=== PATIENT | female | born 1950 | race Two or more races ===

== ENCOUNTER 2024-10-25 02:58 | Emergency (ER) | payer MEDICAID, OTHER ==
[~2024-10-25] VITALS: Ht 154.9 cm; Wt 72.6 kg
--- NOTE | 2024-10-25 03:24 | ED.PDOC ---
SOB-HPI HPI Comments A 74 year old female brought in by EMS presents to the ED with a chief complaint of shortness of breath onset today. Per EMS, the patient woke up experiencing shortness of breath, daughter suctioned trach that was placed 2 weeks ago and noticed blood. Upon EMS arrival patient's O2 sat was 88% on home oxygen, was placed on a nonbreather over trach and is 95%. Patient has a past medical history of lung and thyroid cancer. No other symptoms or modifying factors present at this time. Chief Complaint: Shortness of Breath Time Seen by MD: 03:00 Reviewed notes: Medications, Allergies Information Source: Patient, Emergency Med Personnel Mode of Arrival: EMS Severity: Moderate Timing: Minutes Duration: Since onset Prehospital treatment: None Associated Signs and Symptoms: None Past Medical History PAST MEDICAL HISTORY: Cancer Surgical History: Unknown NECKTIE TURNER History: No Pertinent NECKTIE TURNER History Family History Family History: Reviewed,noncontributory to illness, No family hx of Cancer, No family hx of DM, No family hx of Heart [place], No family hx of HTN, No family hx ofKidney [place], No family hx of Liver [place], No family hx of Lung [place], No family hx of Stroke Social History Smoker: Non-Smoker Alcohol: Denies ETOH Use Drugs: Denies Drug Use Lives In: Home Constitutional: denies: chills, diaphoresis, fatigue, fever, malaise, sweats, weakness, others EENTM: denies: blurred vision, double vision, ear bleeding, ear discharge, ear drainage, ear pain, ear ringing, eye pain, eye redness, hearing loss, mouth pain, mouth swelling, nasal discharge, nose bleeding, nose congestion, nose pain, photophobia, tearing, throat pain, throat swelling, voice changes, others Respiratory: reports: shortness of breath, wheezing; denies: cough, hemoptysis, orthopnea, SOB at rest, SOB with excertion, stridor, others Cardiovascular: denies: chest pain, dizzy spells, diaphoresis, Dyspnea on exertion, edema, irregular heart beat, left arm pain, lightheadedness, palpitations, PND, syncope, others Gastrointestinal: denies: abdomen distended, abdominal pain, blood streaked bowels, constipated, diarrhea, dysphagia, difficulty swallowing, hematemesis, melena, nausea, poor appetite, poor fluid intake, rectal bleeding, rectal pain, vomiting, others Genitourinary: denies: abnormal vagina bleeding, burning, dyspareunia, dysuria, flank pain, frequency, hematuria, incontinence, pain, , vagina discharge, urgency, others Neurological: denies: dizziness, fainting, headache, left sided numbness, left sided weakness, numbness, paresthesia, pre-existing deficit, right sided numbness, right sided weakness, seizure, speech problems, tingling, tremors, weakness, others Musculoskeletal: denies: back pain, gout, joint pain, joint swelling, muscle pain, muscle stiffness, neck pain, others Integumetry: denies: bruises, change in color, change in hair/nails, dryness, laceration, lesions, lumps, rash, wounds, others Allergic/Immunocompromised: denies: Difficulty Healing, Frequent Infections, Hives, Itching, others Hematologic/Lymphatic: denies: anemia, blood clots, easy bleeding, easy bruising, swollen glands, others Endocrine: denies: excessive hunger, excessive sweating, excessive thirst, excessive urination, flushing, intolerance to cold, intolerance to heat, unexplained weight gain, unexplained weight loss, others Psychiatric: denies: anxiety, bipolar disorder, depression, hopeless, panic disorder, schizophrenia, sleepless, suicidal, others All Other Systems: Reviewed and Negative Physical Exam General Appearance: No Apparent Distress, Normal HEENT: Normal ENT Inspection, Pharynx Normal, TMs Normal Neck: Full Range of Motion, Non-Tender, Normal, Normal Inspection Respiratory: Chest Non-Tender, No Accessory Muscle Use, Rales, Respiratory Distress, Other (diminished breath sounds) Cardiovascular: No Edema, No JVD, No Murmur, No Gallop, Normal Peripheral Pulses, Regular Rate/Rhythm Breast Exam: Deferred Gastrointestinal: No Organomegaly, Non Tender, No Pulsatile Mass, Normal Bowel Sounds, Soft Genitalia: Deferred Pelvic: Deferred Rectal: Deferred Extremities: No calf tenderness, Normal capillary refill, Normal inspection, Normal range of motion, Non-tender, No pedal edema Musculoskeletal : Apperance: Normal Neurologic: Alert, tire wrapper II-XII nml as Tested, No Motor Deficits, Normal Affect, Normal Mood, No Sensory Deficits Cerebellar Function: Normal Reflexes: Normal Skin: Dry, Normal Color, Warm Lymphatic: No Adenopathy EKG EKG : Pulse Rate (adult): 82 Block: IVCD Hypertrophy: LVH Comments 79 bpm ectopic atrial Was a procedure done? Was a procedure done?: No Differential Dx Differential Diagnosis: Anxiety, Asthma, Bronchitis, CHF, COPD, Pneumonia, Respiratory Distress, URI X-Ray, Labs, Meds, VS Vital Signs Date Time Temp Pulse Resp B/P (MAP) Pulse Ox O2 Delivery O2 Flow Rate FiO2 10/25/24 04:00 74 10/25/24 04:00 73 18 123/34 (63) 99 10/25/24 03:50 79 17 137/44 (75) 100 10/25/24 03:27 20 100 Trach Collar 9 40 Cool Aerosol 40 10/25/24 03:24 82 10/25/24 03:12 79 10/25/24 03:09 97.1 80 26 141/61 (87) 95 Lab Test 10/25/24 04:52 10/25/24 04:33 10/25/24 03:45 Range/Units Blood Gas Specimen Type Arterial Blood Gas Sample Site Right radial Blood Gas Patient Temperature 37.0 Arterial Blood Date Drawn [id number] Arterial Blood pH 7.486 H 7.350-7.450 Arterial Blood Partial Pressure CO2 40.6 32.0-45.0 mmHg Arterial Blood Partial Pressure O2 72.8 L 83.0-108.0 mmHg Arterial Blood HCO3 30.0 H 21.0-28.0 mmol/L Arterial Blood Oxygen Saturation 95.8 94.0-98.0 % Arterial Blood Base Excess 6.1 H -2.0-3.0 mmol/L Arterial Blood Oxyhemoglobin 94.8 94.0-98.0 % Arterial Blood Carboxyhemoglobin 0.5 0.5-1.5 % Arterial Blood Methemoglobin 0.5 0.0-1.5 % German Test Modified Blood Gas Total Hemoglobin 9.60 L 12.0-16.0 g/dL Blood Gas Liter Flow 9.00 Blood Gas Modality Cool aerosol FiO2 % 40.0 Troponin I High Sensitivity Pending 13 </=34 ng/L White Blood Count 10.3 4.4-10.8 10^3/uL Red Blood Count 3.51 L 4.0-5.20 10^6/uL Hemoglobin 10.0 L 12.2-16.2 g/dL Hematocrit 30.4 L 36.0-46.0 % Mean Corpuscular Volume 86.5 80.0-100.0 fL Mean Corpuscular Hemoglobin 28.5 28.0-32.0 pg Mean Corpuscular Hemoglobin Concent 33.0 32.0-36.0 g/dL Red Cell Distribution Width 16.8 H 11.8-14.3 % Platelet Count 184 140-450 10^3/uL Mean Platelet Volume 10.0 6.9-10.8 fL Neutrophils (%) (Auto) 59.3 37.0-80.0 % Lymphocytes (%) (Auto) 30.9 10.0-50.0 % Monocytes (%) (Auto) 7.4 0.0-12.0 % Eosinophils (%) (Auto) 0.4 0.0-7.0 % Basophils (%) (Auto) 2.0 0.0-2.0 % Neutrophils # (Auto) 6.1 1.6-8.6 10 ^3/uL Lymphocytes # (Auto) 3.2 0.4-5.4 10 ^3/uL Monocytes # (Auto) 0.8 0-1.3 10 ^3/uL Eosinophils # (Auto) 0 0-0.8 10 ^3/uL Basophils # (Auto) 0.2 0-0.2 10 ^3/uL Nucleated Red Blood Cells 0.1 % Prothrombin Time 11.7 9.3-11.8 sec Prothrombin Time INR 1.11 0.9-1.15 Activated Partial Thromboplast Time 28.9 24.5-34.5 SEC B-Type Natriuretic Peptide 217.92 0-100 pg/mL Current Medications Medications (Trade) Dose Ordered Sig/Kulwant Route Start Time Stop Time Status Last Admin Ondansetron HCl (Zofran) 4 mg ONCE ONCE IV 10/25/24 03:15 10/25/24 03:20 DC 10/25/24 04:30 Albuterol (Ventolin Medneb) 5 mg ONCE ONCE NEB 10/25/24 03:15 10/25/24 03:20 DC 10/25/24 03:26 Ipratropium [place] (Atrovent Medneb) 0.5 mg ONCE ONCE NEB 10/25/24 03:15 10/25/24 03:20 DC 10/25/24 03:26 Levofloxacin/ Dextrose 100 ml @ 100 mls/hr ONCE ONCE IV 10/25/24 03:15 10/25/24 04:14 DC 10/25/24 04:30 Methylprednisolone Sodium Succinate (Solu Medrol) 125 mg ONCE ONCE IV 10/25/24 03:15 10/25/24 03:19 DC 10/25/24 04:[address] [address] Ph: [phone] DIAGNOSTIC IMAGING Diagnostic Imaging Report : [id number] Signed PATIENT: PALMA MCGREGOR ACCT: [id number] UNIT: [id number] : 1950 LOC: ER ROOM / BED: / AGE / SEX: 74 / F ADM STATUS: REG ER SERVICE 2 ORDERING PHYSICIAN: FRANCISCO COPE MD PROCEDURE(s): CXRP - CHEST PORTABLE REASON: sob ORDER NUMBER(s): [id number], ACCESSION NUMBER(s): [id number] CHEST RADIOGRAPH Indication: sob Technique: Single frontal view of the chest was obtained COMPARISON: None FINDINGS: Lines and Tubes: Tracheostomy in satisfactory position. Median sternotomy. Lungs: Congestion Pleura: No effusion. No pneumothorax. Cardiomediastinal contours: Cardiomegaly. Cardiac valve replacement. Bones: Unremarkable IMPRESSION: Pulmonary vascular congestion ATED BY: FABIÁN STRANGE MD DICTATED DATE/TIME: 10/25/24357 SIGNED BY: FABIÁN STRANGE MD SIGNED DATE/TIME: 10/25/24357 CC: [place] [address] Ph: [phone] DIAGNOSTIC IMAGING Diagnostic Imaging Report : [id number] Signed PATIENT: PALMA MCGREGOR ACCT: [id number] UNIT: [id number] : 1950 LOC: ER ROOM / BED: / AGE / SEX: 74 / F ADM STATUS: REG ER SERVICE 2 ORDERING PHYSICIAN: FRANCISCO COPE MD PROCEDURE(s): CTCAP - CHST AB PEL WO CON-NO IV/ORAL REASON: sob ORDER NUMBER(s): [id number], ACCESSION NUMBER(s): [id number] EXAM: CT CHST AB PEL WO CON-NO IV/ORAL History: sob Comparison Study: None available at time of dictation. TECHNIQUE: Multidetector CT of the chest, abdomen and pelvis was performed from lower neck to pubic symphysis without the use of intravenous contrast. Coronal and sagittal multiplanar reformats were performed by the technologist on a separate workstation. Radiation Dose Information: CT Dose: CTDI volume is 16.35 mGy. Dose-length product is 1042.5 mGy*cm FINDINGS: Support lines and tubes: Tracheostomy tube noted. Lower neck: Soft tissue density in the base of the neck surrounding the tracheostomy tube. Lungs: There are pulmonary masses, the largest is a right middle lobe mass measuring 4.5 cm. There is also right upper lobe pleural-based mass in the posterior superior segment measuring 2.7 cm. Left lower lobe mass noted measuring 3.1 cm. There multiple smaller masses and pulmonary nodules. Central airways: Patent. No pleural effusion or pneumothorax. Heart/Vascular Structures: Heart is enlarged. Coronary artery calcifications. No pericardial effusion. Lymph Nodes: No adenopathy. Liver: The liver is normal in size. Non-contrast appearance of liver. Gallbladder and Biliary Tree: Unremarkable. Spleen: Unremarkable. Pancreas: Unremarkable. Adrenal Glands: Calcification in the right adrenal. Left adrenal is un remarkable.. Kidneys: Punctate nonobstructing left nephrolithiasis. Bladder: Unremarkable. Stomach and bowel: There is a percutaneous gastrostomy tube noted. No bowel wall thickening or dilatation. The appendix is not visualized; however, no secondary findings of acute appendicitis identified. Peritoneum: No ascites or pneumoperitoneum. Lymphadenopathy: No enlarged lymph nodes. Vasculature: The visualized abdominal aorta is normal in size and caliber. Evaluation of the vascular structures is limited due to lack of intravenous contrast. Pelvic Organs: Unremarkable. Musculoskeletal: No acute osseous abnormality. Status post median sternotomy Soft tissues: Unremarkable. IMPRESSION: 1. Multiple pulmonary masses measuring up to 4.5 cm concerning for metastatic disease. 2. Soft tissue density surrounding the tracheostomy tube in the base of the neck. Please correlate clinically. 3. Punctate left nephrolithiasis. 4. No acute abnormality in the abdomen or pelvis. All CT scans at this medical facility are performed using dose modulation techniques as appropriate to a performed exam including the following: Automated exposure control was utilized; adjustment of the MA and/or KV according to patient size; and use of iterative reconstruction technique. ATED BY: JOELLEN PHELPS MD DICTATED DATE/TIME: 10/25/24411 SIGNED BY: JOELLEN PHELPS MD SIGNED DATE/TIME: 10/25/24411 CC: PO2 is 72 on 40% FiO2. Troponin is 13 EKG shows no signs of ischemia. Hemoglobin is 10. BNP is 217. The patient is 89 respiratory distress. She was suctioned by respiratory therapy. She has a physician down [place] in [place] who we will refer her to. Time of 1ST Reevaluation: 03:30 Reevaluation 1ST: Unchanged Patient Education/Counseling: Diagnosis, Treatment, Prognosis Family Education/Counseling: No Family Present Departure 1 Departure Time of Disposition: 05:03 Impression: Primary Impression: Lung cancer Qualified Codes: C34.90 - Malignant neoplasm of unspecified part of unspecified bronchus or lung Additional Impression: Hemoptysis Disposition: HOME / SELF CARE / HOMELESS Condition: Stable Additional Instructions: Reassessed patient, vital signs stable. Denies any new symptoms. Patient is able to tolerate PO and ambulate/be mobile at their baseline without concern. Risks and benefits of all medications given or prescribed, if any, discussed. All lab work, imaging and diagnostic studies were reviewed by me. The patient was counseled extensively on my clinical impression, diagnosis, expected course of the disease, and plan, including their follow-up care. Will discharge patient. Patient instructed to follow up with Primary Care Physician within 24-48 hours. Strict return precautions given for further exacerbation of symptoms or for new symptoms. The patient was given the opportunity to ask questions and all questions were answered by myself and the nursing/tech staff. Patient is in agreement with the care plan. The patient verbally expressed understanding of the discharge instructions, including the reasons to return to the Emergency Department. Discharged With: Relative Comments Critical Care Procedure Note Authorized and Performed by: Manolo Rizo MD Total critical care time: Approximately 36 minutes Due to a high probability of clinically significant, life threatening deterioration, the patient required my highest level of preparedness to interve ne emergently and I personally spent this critical care time directly and personally managing the patient. This critical care time included obtaining a history; examining the patient; pulse oximetry; ordering and review of studies; arranging urgent treatment with development of a management plan; evaluation of patient's response to treatment; frequent reassessment; and, discussions with other providers. This critical care time was performed to assess and manage the high probability of imminent, life-threatening deterioration that could result in multi-organ failure. It was exclusive of separately billable procedures and treating other patients and teaching time. Please see MDM section and the rest of the note for further information on patient assessment and treatment. Critical Care Note Critical Care Time?: Yes (35 min-critical care time only) Stability Stability form required: No Heart Score Heart Score: Heart Score Response (Comments) Value History N/A 0 EKG Normal 0 Age >65 2 Risk Factors 1 or 2 risk factors 1 Troponin Normal limit 0 Total 3 I personally scribed for FRANCISCO COPE MD ([email or web address]) on 10/25/24 at 03:23. Electronically submitted by Aimee Batres ([email or web address]). I personally scribed for FRANCISCO COPE MD ([email or web address]) on 10/25/24 at 04:28. Electronically submitted by Aimee Batres ([email or web address]). FRANCISCO COPE MD Oct 25, 2024 03:23
[2024-10-25] MEDS: IPRATROPIUM BROM 0.5 MG/2.5ML INH SOL NEB ONE (03:26)
[2024-10-25] MEDS: ALBUTEROL SULF 2.5 MG/0.5ML(0.5%) NEB SOLN NEB ONE (03:26)
--- NOTE | 2024-10-25 04:02 | DVH ---
CHEST RADIOGRAPH Indication: sob Technique: Single frontal view of the chest was obtained COMPARISON: None FINDINGS: Lines and Tubes: Tracheostomy in satisfactory position. Median sternotomy. Lungs: Congestion Pleura: No effusion. No pneumothorax. Cardiomediastinal contours: Cardiomegaly. Cardiac valve replacement. Bones: Unremarkable IMPRESSION: Pulmonary vascular congestion
[2024-10-25 04:05] LABS: Basophils # (auto) 0.2 10 ^3/uL (0-0.2); Eosinophils # (auto) 0 10 ^3/uL (0-0.8); Eosinophils % (auto) 0.4 % (0.0-7.0); Hematocrit 30.4 % (36.0-46.0); Lymphocytes # (auto) 3.2 10 ^3/uL (0.4-5.4); Lymphocytes % (auto) 30.9 % (10.0-50.0); Mean Corpuscular Hemoglobin 28.5 pg (28.0-32.0); Mean Corpuscular Volume 86.5 fL (80.0-100.0); Monocytes # (auto) 0.8 10 ^3/uL (0-1.3); Monocytes % (auto) 7.4 % (0.0-12.0); Neutrophils # (auto) 6.1 10 ^3/uL (1.6-8.6); Neutrophils % (auto) 59.3 % (37.0-80.0); Nucleated Red Blood Cells % 0.1 %; Platelet Count (auto) 184 10^3/uL (140-450); Red Blood Cells 3.51 10^6/uL (4.0-5.20); Red Cell Distribution Width 16.8 % (11.8-14.3); White Blood Cell 10.3 10^3/uL (4.4-10.8)
--- NOTE | 2024-10-25 04:14 | DVH ---
EXAM: CT CHST AB PEL WO CON-NO IV/ORAL History: sob Comparison Study: None available at time of dictation. TECHNIQUE: Multidetector CT of the chest, abdomen and pelvis was performed from lower neck to pubic s ymphysis without the use of intravenous contrast. Coronal and sagittal multiplanar reformats were per formed by the technologist on a separate workstation. Radiation Dose Information: CT Dose: CTDI volume is 16.35 mGy. Dose-length product is 1042.5 mGy*cm FINDINGS: Support lines and tubes: Tracheostomy tube noted. Lower neck: Soft tissue density in the base of the neck surrounding the tracheostomy tube. Lungs: There are pulmonary masses, the largest is a right middle lobe mass measuring 4.5 cm. There is also right upper lobe pleural-based mass in the posterior superior segment measuring 2.7 cm. Left lo wer lobe mass noted measuring 3.1 cm. There multiple smaller masses and pulmonary nodules. Central airways: Patent. No pleural effusion or pneumothorax. Heart/Vascular Structures: Heart is enlarged. Coronary artery calcifications. No pericardial effusio n. Lymph Nodes: No adenopathy. Liver: The liver is normal in size. Non-contrast appearance of liver. Gallbladder and Biliary Tree: Unremarkable. Spleen: Unremarkable. Pancreas: Unremarkable. Adrenal Glands: Calcification in the right adrenal. Left adrenal is unremarkable.. Kidneys: Punctate nonobstructing left nephrolithiasis. Bladder: Unremarkable. Stomach and bowel: There is a percutaneous gastrostomy tube noted. No bowel wall thickening or dilata tion. The appendix is not visualized; however, no secondary findings of acute appendicitis identified . Peritoneum: No ascites or pneumoperitoneum. Lymphadenopathy: No enlarged lymph nodes. Vasculature: The visualized abdominal aorta is normal in size and caliber. Evaluation of the vascular structures is limited due to lack of intravenous contrast. Pelvic Organs: Unremarkable. Musculoskeletal: No acute osseous abnormality. Status post median sternotomy Soft tissues: Unremarkable. IMPRESSION: 1. Multiple pulmonary masses measuring up to 4.5 cm concerning for metastatic disease. 2. Soft tissue density surrounding the tracheostomy tube in the base of the neck. Please correlate c linically. 3. Punctate left nephrolithiasis. 4. No acute abnormality in the abdomen or pelvis. All CT scans at this medical facility are performed using dose modulation techniques as appropriate t o a performed exam including the following: Automated exposure control was utilized; adjustment of th e MA and/or KV according to patient size; and use of iterative reconstruction technique.
[2024-10-25 04:19] LABS: INR 1.11 (0.9-1.15); Partial Thromboplastin Time 28.9 SEC (24.5-34.5); Prothrombin Time 11.7 sec (9.3-11.8)
[2024-10-25] MEDS: ONDANSETRON HCL 4 MG/2 ML VIAL IV ONE (04:30)
[2024-10-25] MEDS: levoFLOXacin 500MG 100 ML IV ONE (04:30)
[2024-10-25] MEDS: methylPREDNISolone SOD SUCC 125 MG/2 ML VL IV ONE (04:30)
[2024-10-25 05:01] LABS: Base Excess 6.1 mmol/L (-2.0-3.0)
[2024-10-25 05:51] VITALS: BP 125/40; PULSE 69; RESP 16; O2SAT 98
--- NOTE | 2024-10-25 07:16 | ECG ---
[facility] Test Date: 2024-10-25 Test Time: 03:12:02 Pat Name: PALMA MCGREGOR Department: ED Room: Gender: F [place] Measurer: : 1950 Requested By: FRANCISCO COPE Order Number: [id number] Reading MD: Jonathan Davenport Measurements Intervals [place] Rate: 79 P: 234 MD: 82 QRS: -50 QRSD: 113 T: 123 QT: 415 QTc: 476 Interpretive Statements Ectopic atrial rhythm Short MD interval LVH with IVCD, LAD and secondary repol abnrm Electronically Signed On 10-25-2024 14:18:20 PST by Jonathan Davenport Please click the below link to view image of tracing.
--- NOTE | 2024-10-26 02:59 | ECG ---
[facility] Test Date: 2024-10-25 Test Time: 20:38:04 Pat Name: PALMA MCGREGOR Department: ed Room: Gender: F Certified Flight Instructor: floyd : 1950 Requested By: FRANCISCO COPE Order Number: [id number] Reading MD: Jonathan Davenport Measurements Intervals [place] Rate: 29 P: 0 OR: 0 QRS: 111 QRSD: 186 T: -88 QT: 695 QTc: 483 Interpretive Statements Atrial fibrillation, severe bradycardia abnormal baseline, can not determine atrial rhythm and or heart block Right bundle branch block Repol abnrm, global ischemia, diffuse leads Baseline wander in lead(s) II,III,aVF Electronically Signed On 10-30-2024 8:53:10 PST by Jonathan Davenport Please click the below link to view image of tracing.
== END 2024-10-25 06:16 | disposition home or self-care (01) ==
LOC: ER 02:58 → EDBD 03:04 → ER 06:16
DX: C34.90 Malignant neoplasm of unspecified part of unspecified bronchus or lung (principal); R04.2 Hemoptysis; R06.03 Acute respiratory distress; R22.2 Localized swelling, mass and lump, trunk; R09.89 Other specified symptoms and signs involving the circulatory and respiratory systems; Z85.850 Personal history of malignant neoplasm of thyroid
CPT/HCPCS: 36415; 36600; 71045; 71250; 74176; 82805; 83880; 84484; 85025; 85610; 85730; 93005; 94640; 96365; 96375; 99291; J1956; J2405; J2919

== ENCOUNTER 2024-10-25 20:37 | Inpatient (IN) | payer MEDICAID ==
[~2024-10-25] VITALS: Ht 160 cm; Wt 68.0 kg
[2024-10-25 20:35] VITALS: BP 147/69; PULSE 64; RESP 18; O2SAT 100
[2024-10-25] MEDS: DOPamine 1600MCG/ML D5W 250 ML IV SCH (20:44)
[2024-10-25] MEDS: ROCURONIUM 10MG/ML 10ML VIAL IV ONE ×2 (20:53→20:58)
--- NOTE | 2024-10-25 20:56 | ED.PDOC ---
History of Present Illness HPI Comments 74 y/o F, with a Hx lung and thyroid CA and tracheostomy, is BIBA for c/o shortness of breath, today. Per EMS report, patient's family called after patient began having difficulty breathing at around 2000, this evening, and failing to clean-out the patient's tracheostomy tube that she had placed for throat CA 2x weeks ago. Patient was stated to have been seen at [facility] hospital for same c/o shortness of breath, this morning, prior being medically cleared and discharged. On scene, EMS informs on being unable to obtain an initial SpO2 saturation reading in addition to 12 lead EKG but noted on patient's pulse rate being with in the low 20's-30's range. En route, patient had bag-valve mask placed at 15LPM. Upon arrival to ED, care was resumed by ED staff. Further Hx cannot be obtained, due to patient's current condition and absence of family/plant culture manager historians, at time of arrival and initial assessment. See EMS run sheet for further information. Time Seen by MD: 20:25 Reviewed Notes: Nurses Notes, Records Management Assistant Notes, Medications, Allergies Allergies: Coded Allergies: NO KNOWN ALLERGIES (Unverified , 10/25/24) Information Source: Emergency Med Personnel Mode of Arrival: EMS Severity: Moderate Timing: Minutes Duration: Since onset Prehospital treatment: Rescue Worker, Oxygen (BVM at 15lpm) Past Medical History PAST MEDICAL HISTORY: Cancer (throat and thyroid CA ) Surgical History (Other): tracheostomy SUSTAINABLE DESIGN COORDINATOR History: No Pertinent SUSTAINABLE DESIGN COORDINATOR History Family History Family History: Reviewed,noncontributory to illness, No family hx of Cancer, No family hx of DM, No family hx of Heart sh[place], No family hx of HTN, No family hx ofKidney shiloh, No family hx of Liver shil[place], No family hx of Lung [place], No family hx of Stroke Social History Smoker: Non-Smoker Alcohol: Denies ETOH Use Drugs: Denies Drug Use Lives In: Home, Assisted Care Constitutional: denies: chills, diaphoresis, fatigue, fever, malaise, sweats, weakness, others EENTM: denies: blurred vision, double vision, ear bleeding, ear discharge, ear drainage, ear pain, ear ringing, eye pain, eye redness, hearing loss, mouth pain, mouth swelling, nasal discharge, nose bleeding, nose congestion, nose pain, photophobia, tearing, throat pain, throat swelling, voice changes, others Respiratory: reports: shortness of breath; denies: cough, hemoptysis, orthopnea, SOB at rest, SOB with excertion, stridor, wheezing, others Cardiovascular: denies: chest pain, dizzy spells, diaphoresis, Dyspnea on exertion, edema, irregular heart beat, left arm pain, lightheadedness, palpitations, PND, syncope, others Gastrointestinal: denies: abdomen distended, abdominal pain, blood streaked bowels, constipated, diarrhea, dysphagia, difficulty swallowing, hematemesis, melena, nausea, poor appetite, poor fluid intake, rectal bleeding, rectal pain, vomiting, others Genitourinary: denies: abnormal vagina bleeding, burning, dyspareunia, dysuria, flank pain, frequency, hematuria, incontinence, pain, , vagina discharge, urgency, others Neurological: denies: dizziness, fainting, headache, left sided numbness, left sided weakness, numbness, paresthesia, pre-existing deficit, right sided numbness, right sided weakness, seizure, speech problems, tingling, tremors, weakness, others Musculoskeletal: denies: back pain, gout, joint pain, joint swelling, muscle pain, muscle stiffness, neck pain, others Integumetry: denies: bruises, change in color, change in hair/nails, dryness, laceration, lesions, lumps, rash, wounds, others Allergic/Immunocompromised: denies: Difficulty Healing, Frequent Infections, Hives, Itching, others Hematologic/Lymphatic: denies: anemia, blood clots, easy bleeding, easy bruising, swollen glands, others Endocrine: denies: excessive hunger, excessive sweating, excessive thirst, excessive urination, flushing, intolerance to cold, intolerance to heat, unexplained weight gain, unexplained weight loss, others Psychiatric: denies: anxiety, bipolar disorder, depression, hopeless, panic disorder, schizophrenia, sleepless, suicidal, others All Other Systems: Reviewed and Negative Physical Exam General Appearance: No Apparent Distress, Normal HEENT: Normal ENT Inspection, Pharynx Normal, TMs Normal Neck: Full Range of Motion, Non-Tender, Normal, Normal Inspection Respiratory: Chest Non-Tender, Other (tracheostomy tube in place) Cardiovascular: No Edema, No JVD, No Murmur, No Gallop, Normal Peripheral Pulses, Regular Rate/Rhythm Breast Exam: Deferred Gastrointestinal: No Organomegaly, Non Tender, No Pulsatile Mass, Normal Bowel Sounds, Soft Genitalia: Deferred Pelvic: Deferred Rectal: Deferred Extremities: No calf tenderness, Normal capillary refill, Normal inspection, Normal range of motion, Non-tender, No pedal edema Musculoskeletal : Apperance: Normal Neurologic: Alert, agricultural produce packer II-XII nml as Tested, No Motor Deficits, Normal Affect, Normal Mood, No Sensory Deficits Cerebellar Function: Normal Reflexes: Normal Skin: Dry, Normal Color, Warm Lymphatic: No Adenopathy Was a procedure done? 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: Attending Physician Indication: Inability to obtain IV Room prepared for procedure: Yes Clinical Rehabilitation Liaison performed hand hygien: Yes Maximal sterile barrier precau: Mask/Eye shield, Sterile gown, Cap, Sterlie gloves, Large sterlie drape Skin Preparation: Chlorhexidine gluconate Skin preparation completely dr: Yes Insertion site: Right, Left, Femoral Central line catheter type: [id number] dialysis Number of lumens: 3 Central line exchanged over a: No Antiseptic ointment applied to: No Post Assessment: Chest X-Ray, Proper placement Informed consent obtained: No Risks/benefits/alt described: No Notes failed right femoral central line placement attempt, left femoral central line placement was successful. EKG EKG #1: Pulse Rate (adult): 29 [place]: Normal Cardiac Rhythm: Afib Block: RBBB Hypertrophy: None ST: Normal EKG #2: Pulse Rate (adult): 103 [place]: Normal Cardiac Rhythm: ST Block: RBBB Hypertrophy: None ST: Normal Comments LVFB Differential Dx Considerations may include: acute respiratory distress, respiratory failure, arrhythmia, PE, [place], URI, hypoxia, congestion, URI X-Ray, Labs, Meds, VS Vital Signs Date Time Temp Pulse Resp B/P (MAP) Pulse Ox O2 Delivery O2 Flow Rate FiO2 10/26/24 05:13 79 14 68/41 10/26/24 05:10 78 14 70 Room Air* 0 21 10/26/24 05:10 78 14 68/41 (50) 70 10/26/24 04:53 79 10 68/38 10/26/24 04:07 80 10 75/38 10/26/24 03:30 81 10 69/41 (50) 81 10/26/24 03:15 81 10 75/42 (53) 80 10/26/24 03:08 80 10 73/43 10/26/24 03:00 81 10 78/44 (55) 83 10/26/24 02:45 81 10 75/43 (54) 75 10/26/24 02:38 92 14 102/59 10/26/24 02:30 90 14 102/59 (73) 82 10/26/24 02:15 99.9 88 17 90/51 (64) 89 99.9 10/26/24 02:00 99.9 79 17 82/52 (62) 100 99.9 10/26/24 01:45 99.9 75 17 90/45 (60) 100 99.9 10/26/24 01:30 99.9 74 17 91/49 (63) 100 99.9 10/26/24 01:15 99.9 75 17 90/45 (60) 100 99.9 10/26/24 01:00 99.0 75 18 95/49 (64) 100 99.0 10/26/24 00:45 100.0 81 18 92/47 (62) 100 100.0 10/26/24 00:30 100.2 86 12 96/51 (66) 100 100.2 10/26/24 00:17 99 18 95/63 98 60 10/26/24 00:15 100.0 87 23 94/41 (58) 100 100.0 10/26/24 00:00 100.0 96 24 80/55 (63) 100 100.0 10/26/24 00:00 112 10/25/24 23:55 80/55 10/25/24 23:53 99 27 95/63 (74) 100 60 10/25/24 23:45 99.9 104 17 106/51 (69) 100 99.9 10/25/24 23:30 99.7 107 21 106/51 (69) 100 99.7 10/25/24 23:15 99.7 117 17 96/57 (70) 100 99.7 10/25/24 23:00 99.7 129 18 128/67 (87) 100 99.7 10/25/24 22:55 125/65 10/25/24 22:55 125/65 10/25/24 22:45 99.7 82 18 123/57 (79) 100 99.7 10/25/24 22:40 145/53 10/25/24 22:40 145/53 10/25/24 22:38 145/53 10/25/24 22:38 145/53 10/25/24 22:30 99.7 109 18 130/67 (88) 100 99.7 10/25/24 22:24 99 18 126/66 (86) 100 60 10/25/24 22:15 99.7 84 18 131/59 (83) 100 99.7 10/25/24 22:00 99.9 56 18 136/62 (86) 100 99.9 10/25/24 21:45 99.9 71 18 130/52 (78) 100 99.9 10/25/24 21:30 55 20 116/53 (74) 10/25/24 21:16 128/45 10/25/24 21:15 61 23 128/48 (74) 10/25/24 21:01 97.3 20 18 140/110 (120) 100 10/25/24 21:00 38 13 142/61 (88) 10/25/24 21:00 91 Trach Collar 15 N/A 10/25/24 20:58 156/84 10/25/24 20:48 156/84 10/25/24 20:46 156/84 10/25/24 20:45 95 19 156/94 (114) 10/25/24 20:44 103 10/25/24 20:44 156/84 10/25/24 20:38 29 10/25/24 20:38 21 10/25/24 20:35 64 18 147/69 (95) 100 100 Lab Test 10/26/24 00:15 10/25/24 22:53 10/25/24 22:17 10/25/24 21:53 Range/Units Troponin I High Sensitivity 1385 *H 224 *H </=34 ng/L Lactic Acid Level 8.3 *H 0.4-2.0 mmol/L Blood Gas Specimen Type Arterial Blood Gas Sample Site Right radial Blood Gas Patient Temperature 37.0 Arterial Blood Date Drawn [id number] Arterial Blood pH 7.231 *L 7.350-7.450 Arterial Blood Partial Pressure CO2 34.6 32.0-45.0 mmHg Arterial Blood Partial Pressure O2 276.3 H 83.0-108.0 mmHg Arterial Blood HCO3 14.2 L 21.0-28.0 mmol/L Arterial Blood Oxygen Saturation 99.7 H 94.0-98.0 % Arterial Blood Base Excess -12.3 L -2.0-3.0 mmol/L Arterial Blood Oxyhemoglobin 99.2 H 94.0-98.0 % Arterial Blood Carboxyhemoglobin 0.1 L 0.5-1.5 % Arterial Blood Methemoglobin 0.4 0.0-1.5 % German Test Modified Blood Gas Total Hemoglobin 10.00 L 12.0-16.0 g/dL Blood Gas Set Respiration Rate 18.0 Blood Gas Modality Vent - ac FiO2 % 100.0 Blood Gas Tidal Volume 450.0 Blood Gas PEEP or CPAP 5.0 Blood Gas Critical Value Read Back Yes Blood Gas Notified Whom Dr. cope Blood Gas Notified Time [id number] Blood Gas Notified By Facility Maintenance Supervisor daren zulema Test 10/25/24 21:40 10/25/24 20:55 Range/Units Urine Color Yellow Yellow Urine Clarity Clear Clear Urine pH 7.0 5.0-9.0 Urine Specific [place] 1.019 1.001-1.035 Urine Protein 2+ H Negative Urine Ketones Negative Negative Urine Blood Negative Negative /uL Urine Nitrite Negative Negative Urine Bilirubin Negative Negative Urine Urobilinogen 2 H Negative mg/dL Urine Leukocyte Esterase Negative Negative /uL Urine RBC <1 0 - 4 /hpf Urine WBC 1 0 - 5 /hpf Urine Squamous Epithelial Cells Few <5 /hpf Urine Bacteria None seen None Seen /hpf Urine Yeast (Budding) Occasional None Seen /hpf Urine Glucose Normal Normal mg/dL White Blood Count 17.7 #H 4.4-10.8 10^3/uL Red Blood Count 3.32 L 4.0-5.20 10^6/uL Hemoglobin 9.1 L 12.2-16.2 g/dL Hematocrit 30.7 L 36.0-46.0 % Mean Corpuscular Volume 92.5 # 80.0-100.0 fL Mean Corpuscular Hemoglobin 27.5 L 28.0-32.0 pg Mean Corpuscular Hemoglobin Concent 29.7 L 32.0-36.0 g/dL Red Cell Distribution Width 17.8 H 11.8-14.3 % Platelet Count 228 140-450 10^3/uL Mean Platelet Volume 10.3 6.9-10.8 fL Neutrophils (%) (Auto) 45.5 37.0-80.0 % Lymphocytes (%) (Auto) 51.2 H 10.0-50.0 % Monocytes (%) (Auto) 3.1 0.0-12.0 % Eosinophils (%) (Auto) 0.1 0.0-7.0 % Basophils (%) (Auto) 0.1 0.0-2.0 % Neutrophils # (Auto) 8.1 1.6-8.6 10 ^3/uL Lymphocytes # (Auto) 9.1 H 0.4-5.4 10 ^3/uL Monocytes # (Auto) 0.5 0-1.3 10 ^3/uL Eosinophils # (Auto) 0 0-0.8 10 ^3/uL Basophils # (Auto) 0 0-0.2 10 ^3/uL Nucleated Red Blood Cells 0.1 % Prothrombin Time 11.7 9.3-11.8 sec Prothrombin Time INR 1.11 0.9-1.15 Activated Partial Thromboplast Time 22.8 L 24.5-34.5 SEC Sodium Level 138 136-145 mmol/L Potassium Level 4.7 3.5-5.1 mmol/L Chloride Level 103 98-107 mmol/L Carbon Dioxide Level 14 L 20-31 mmol/L Anion Gap 21 H 5-15 Blood Urea Nitrogen 22 9-23 mg/dL Creatinine 1.05 H 0.550-1.02 mg/dL Glomerular Filtration Rate Calc 56 >90 mL/min BUN/Creatinine Ratio 21.0 H 10.0-20.0 Serum Glucose 396 H 74-106 mg/dL Lactic Acid Level 13.1 *H 0.4-2.0 mmol/L Calcium Level 9.8 8.7-10.4 mg/dL Magnesium Level 2.6 1.6-2.6 mg/dL Total Bilirubin 0.3 0.2-1.0 mg/dL Aspartate Amino Transferase (AST) 31 13-40 U/L Alanine Aminotransferase (ALT) 30 7-40 U/L Alkaline Phosphatase 170 H 46-116 U/L Ammonia 33 H 11-32 umol/L Troponin I High Sensitivity 50 *H </=34 ng/L B-Type Natriuretic Peptide 1284.16 0-100 pg/mL Total Protein 6.8 5.7-8.2 g/dL Albumin 4.1 3.2-4.8 g/dL Current Medications Medications (Trade) Dose Ordered Sig/Kulwant Route Start Time Stop Time Status Last Admin Rocuronium [place] 50 mg ONCE ONCE IV 10/25/24 21:00 10/25/24 21:01 DC 10/25/24 20:58 Sodium Bicarbonate 150 ml ONCE ONCE IV 10/25/24 22:30 10/25/24 22:32 DC 10/25/24 22:46 Dopamine HCl/ Dextrose 250 ml @ 12.75 mls/ hr [id number] IV 10/25/24 20:44 10/25/24 20:44 Epinephrine HCl 250 ml @ 7.5 mls/hr Q24H IV 10/25/24 21:16 10/25/24 21:16 Glucagon (Glucagen) 1 mg ONCE ONCE IV 10/25/24 21:36 10/25/24 22:36 DC 10/25/24 21:36 Lorazepam (Ativan Inj) 2 mg ONCE ONCE IV 10/26/24 00:00 10/26/24 00:01 DC 10/26/24 00:34 Sodium Chloride 1,000 ml @ 1,000 mls/hr Q1H ONCE IV 10/26/24 00:45 10/26/24 01:44 DC 10/26/24 00:45 Morphine Sulfate 1 mg Q1HP PRN IV 10/26/24 02:15 10/26/24 05:13 Lorazepam (Ativan Inj) 1 mg Q1HP PRN IV 10/26/24 02:15 10/26/24 02:38 she was placed on ventilation after central line placement in addition to dopamine and epinephrine IV drip; respiratory suctioned out thick green mucous from the patient's tracheostomy [place]. [place] [address]. BNP is 1284. Troponin is 50. EKG reveals severe bradycardia. I spoke with Dr. arenas, the stationary equipment mechanic who felt that the patient is doing the best she can with transcutaneous pacemaker which is currently said at 96 milliamps at a rate of 70 beats per minute. We will continue dopamine and epinephrine drips. He states that the patient probably needs a permanent pacemaker but with metastatic lung cancer and thyroid cancer those are contraindication for permanent pacemaker. I will speak with the family about comfort measures are DNR( advanced directive) The family finally decided on her advanced directive. They decided to make her a DNR. All drips and resuscitative measures were discontinued. The patient was allowed to with dignity. Family members are at bedside. The patient was signed out to Dr. Sylvester Time of 1ST Reevaluation: 20:55 Reevaluation 1ST: Unchanged Patient Education/Counseling: Other Family Education/Counseling: No Family Present Departure 1 Departure Time of Disposition: 05:59 Impression: Primary Impression: Respiratory failure Qualified Codes: J96.00 - Acute respiratory failure, unspecified whether with hypoxia or hypercapnia Additional Impressions: CHF (congestive heart failure) Qualified Codes: I50.9 - Heart failure, unspecified Bradycardia Tracheostomy dependence Sepsis Qualified Codes: A41.9 - Sepsis, unspecified organism Disposition: 30 STILL A PATIENT Condition: Critical Comments DNR was signed by the family members who were sitting by the bedside and waiting for the patient to . Critical Care Note Critical Care Time?: Yes (1 hr-critical care time only) Stability Stability form required: No Heart Score Heart Score: Heart Score Response (Comments) Value History Moderate Suspicious 1 EKG Repolarization Disturb 1 Age >65 2 Risk Factors >3 or Hx ASHD 2 Troponin 1-2 x's Normal limit 1 Total 7 I personally scribed for FRANCISCO COPE MD ([email or web address]) on 10/25/24 at 20:56. Electronically submitted by Rupert Gunn ([email or web address]). I personally scribed for FRANCISCO COPE MD ([email or web address]) on 10/25/24 at 21:18. Electronically submitted by Rupert Gunn ([email or web address]). I personally scribed for FRANCISCO COPE MD ([email or web address]) on 10/25/24 at 21:28. Electronically submitted by Rupert Gunn ([email or web address]). FRANCISCO COPE MD Oct 25, 2024 20:56
[2024-10-25 21:00] VITALS: O2SAT 91
[2024-10-25] MEDS: EPINEPHrine HCL 250 ML IV ONE (21:10)
[2024-10-25] MEDS: EPINEPHrine HCL 250 ML IV SCH (21:16)
[2024-10-25 21:28] LABS: Basophils # (auto) 0 10 ^3/uL (0-0.2); Basophils % (auto) 0.1 % (0.0-2.0); Eosinophils # (auto) 0 10 ^3/uL (0-0.8); Nucleated Red Blood Cells % 0.1 %
[2024-10-25 21:30] LABS: Eosinophils % (auto) 0.1 % (0.0-7.0); Hematocrit 30.7 % (36.0-46.0); Hemoglobin 9.1 g/dL (12.2-16.2); Lymphocytes # (auto) 9.1 10 ^3/uL (0.4-5.4); Lymphocytes % (auto) 51.2 % (10.0-50.0); Mean Corpuscular Hemoglobin 27.5 pg (28.0-32.0); Mean Corpuscular Hgb Conc. 29.7 g/dL (32.0-36.0); Mean Corpuscular Volume 92.5 fL (80.0-100.0); Monocytes # (auto) 0.5 10 ^3/uL (0-1.3); Monocytes % (auto) 3.1 % (0.0-12.0); Neutrophils # (auto) 8.1 10 ^3/uL (1.6-8.6); Neutrophils % (auto) 45.5 % (37.0-80.0); Platelet Count (auto) 228 10^3/uL (140-450); Red Blood Cells 3.32 10^6/uL (4.0-5.20); Red Cell Distribution Width 17.8 % (11.8-14.3); White Blood Cell 17.7 10^3/uL (4.4-10.8)
[2024-10-25] MEDS: GLUCAGON EMERG KIT 1mg/1ml IV ONE (21:36)
[2024-10-25 21:43] LABS: INR 1.11 (0.9-1.15); Partial Thromboplastin Time 22.8 SEC (24.5-34.5); Prothrombin Time 11.7 sec (9.3-11.8)
[2024-10-25 21:44] LABS: Alanine Aminotransferase 30 U/L (7-40); Albumin 4.1 g/dL (3.2-4.8); Anion Gap 21 (5-15); Aspartate Aminotransferase 31 U/L (13-40); Blood Urea Nitrogen 22 mg/dL (9-23); Calcium 9.8 mg/dL (8.7-10.4); Chloride 103 mmol/L (98-107); Magnesium 2.6 mg/dL (1.6-2.6); Potassium 4.7 mmol/L (3.5-5.1); Sodium 138 mmol/L (136-145)
[2024-10-25 21:45] LABS: Bilirubin, Total 0.3 mg/dL (0.2-1.0); Total Protein 6.8 g/dL (5.7-8.2)
[2024-10-25] MEDS: GLUCAGON EMERG KIT 1mg/1ml ONE (21:45)
[2024-10-25 21:47] LABS: Alkaline Phosphatase 170 U/L (46-116); Carbon Dioxide 14 mmol/L (20-31); Glucose 396 mg/dL (74-106)
[2024-10-25 21:50] LABS: Lactic Acid w/Reflex 13.1 mmol/L (0.4-2.0)
[2024-10-25 22:20] LABS: Urine Bacteria None Seen /hpf (None Seen)
[2024-10-25 22:22] LABS: Base Excess -12.3 mmol/L (-2.0-3.0)
[2024-10-25 22:24] VITALS: BP 126/66; PULSE 99; RESP 18; O2SAT 100
[2024-10-25 22:39] LABS: Urine Blood Negative /uL (Negative); Urine Budding Yeast OCCASIONAL /hpf (None Seen); Urine Clarity Clear (Clear); Urine Color Yellow (Yellow); Urine Protein, UAD 2+ (Negative); Urine Specific Gravity 1.019 (1.001-1.035); Urine Urobilinogen 2 mg/dL (Negative); Urine WBC 1 /hpf (0 - 5)
[2024-10-25] MEDS: SODIUM BICARB 8.4% 50Meq/50ml SYR Vial IV ONE (22:46)
[2024-10-25 23:53] VITALS: BP 95/63; PULSE 99; RESP 27; O2SAT 100
[2024-10-26] VITALS (13 sets, daily range): BP systolic 95–116; BP diastolic 35–75; PULSE 62–99; RESP 10–32; TEMP 99.7–99.9; O2SAT 65–100
[2024-10-26] MEDS: LORazepam 2MG/ML-1ML VIAL IV ONE (00:34)
--- NOTE | 2024-10-26 00:39 | DVH ---
CHEST RADIOGRAPH Indication: resp fail Technique: Single frontal view of the chest was obtained Comparison: XY CHEST PORTABLE on DOS: 10/25/24 Findings/ IMPRESSION: Questionable tracheostomy tube at the level of the clavicles. Low lung volumes. Patchy opacification in the right mid lung zone and potentially in the left mid to lower lung zone. Findings are concerni ng for developing airspace disease. No pneumothorax or pleural effusions.
[2024-10-26] MEDS: SODIUM CHLORIDE 0.9% 1,000 ML IV ONE (00:45)
[2024-10-26] MEDS ORDERED: HYDROmorphone HCL 2 MG/ML VL/or syr IV PRN (02:15)
[2024-10-26] MEDS ORDERED: ONDANSETRON HCL 4 MG/2 ML VIAL IV PRN (02:15)
[2024-10-26] MEDS ORDERED: LORazepam 0.5 MG TAB PO PRN ×2 (02:15→10:00)
[2024-10-26] MEDS ORDERED: ACETAMINOPHEN 325 MG TAB PO PRN (02:15)
[2024-10-26] MEDS ORDERED: BISACODYL 10 MG RECT SUPP PR PRN (02:15)
[2024-10-26] MEDS ORDERED: FLEET ENEMA(ADULT) 135 ML PR PRN (02:15)
[2024-10-26] MEDS ORDERED: ALPRAZolam 0.25 MG TAB PO PRN (02:15)
[2024-10-26] MEDS: MORPHINE SULFATE 4 MG/ML SYR/VIAL IV PRN (02:38)
[2024-10-26] MEDS: LORazepam 2MG/ML-1ML VIAL IV PRN (02:38)
--- NOTE | 2024-10-26 02:59 | ECG ---
[facility] Test Date: 2024-10-25 Test Time: 20:44:30 Pat Name: PALMA MCGREGOR Department: ed Room: [address] [place] [address] Gender: F Black Studies Professor: floyd : 1950 Requested By: FRANCISCO COPE Order Number: [id number] Reading MD: Jonathan Davenport Measurements Intervals [place] Rate: 103 P: 0 [place]: 100 QRS: 142 QRSD: 217 T: -7 QT: 485 QTc: 635 Interpretive Statements Sinus tachycardia RBBB and LPFB Baseline wander in lead(s) V5 Electronically Signed On 10-30-2024 8:53:24 PST by Jonathan Davenport Please click the below link to view image of tracing.
[2024-10-26] MEDS ORDERED: DOCUSATE SOD 100 MG CAP PO PRN (10:00)
[2024-10-26] MEDS ORDERED: MAALOX PLUS or MAALOX 30 ML PO PRN (10:00)
[2024-10-26] MEDS ORDERED: TEMAZEPAM 15 MG CAP PO PRN (10:00)
[2024-10-26] MEDS ORDERED: MORPHINE SULFATE INJ 2 MG/ml SYRG IV PRN ×2 (10:00)
[2024-10-26] MEDS ORDERED: DEXTROSE (50%) 50ML SYRG IV PRN (10:00)
[2024-10-26] MEDS ORDERED: VANCOMYCIN PER PHARMACY 0 MG IV SCH (10:00)
[2024-10-26] MEDS ORDERED: NITROGLYCERIN 0.4 MG SL TAB SL PRN (10:00)
[2024-10-26] MEDS ORDERED: HYDROcodone-ACET 5/325MG TAB PO PRN (10:00)
[2024-10-26] MEDS: DOCUSATE SOD 100 MG CAP PO SCH (10:00)
[2024-10-26] MEDS: ASPirin 325 MG TAB PO ONE (10:05)
--- NOTE | 2024-10-26 10:21 | ECG ---
[facility] Test Date: 2024-10-26 Test Time: 09:55:30 Pat Name: PALMA MCGREGOR Department: ER Room: 0295T Gender: F Managed Care Coordinator: TERESSA : 1950 Requested By: FRANCISCO COPE Order Number: [id number] Reading MD: Jonathan Davenport Measurements Intervals [place] Rate: 73 P: 0 IN: 109 QRS: -39 QRSD: 129 T: 149 QT: 587 QTc: 647 Interpretive Statements Sinus rhythm Supraventricular bigeminy Short IN interval LVH with IVCD, LAD and secondary repol abnrm Prolonged QT interval Electronically Signed On 11-01-2024 13:33:45 PST by Jonathan Davenport Please click the below link to view image of tracing.
[2024-10-26] MEDS: SODIUM CHLORIDE 0.9% 1,000 ML IV SCH (10:38)
[2024-10-26] MEDS: VANCOMYCIN 1.5GM/300ML 300 ML IV ONE (10:38)
[2024-10-26] MEDS: methylPREDNISolone SOD SUCC 40 MG/ML VL IV SCH (10:38)
[2024-10-26 11:09] LABS: Base Excess 6.3 mmol/L (-2.0-3.0)
[2024-10-26] MEDS: InsuLIN REG 1unit/0.01ml Soln (100units/ml) SC SCH (12:00)
[2024-10-26] MEDS: ACCU-CHEK COMFORT CURVE STRIP VI SCH (12:07)
[2024-10-26] MEDS: FUROSEMIDE 40 MG/4 ML VIAL IV SCH (12:11)
[2024-10-26 12:29] LABS: Basophils # (auto) 0 10 ^3/uL (0-0.2); Eosinophils # (auto) 0 10 ^3/uL (0-0.8); Hemoglobin 7.3 g/dL (12.2-16.2); Mean Corpuscular Hemoglobin 27.9 pg (28.0-32.0); Neutrophils % (auto) 71.3 % (37.0-80.0); Red Blood Cells 2.63 10^6/uL (4.0-5.20)
[2024-10-26 12:31] LABS: Basophils % (auto) 0.2 % (0.0-2.0); Hematocrit 22.8 % (36.0-46.0); Lymphocytes % (auto) 21.4 % (10.0-50.0); Mean Corpuscular Hgb Conc. 32.1 g/dL (32.0-36.0); Mean Corpuscular Volume 86.8 fL (80.0-100.0); Monocytes % (auto) 7.1 % (0.0-12.0); Platelet Count (auto) 124 10^3/uL (140-450); Red Cell Distribution Width 16.6 % (11.8-14.3); White Blood Cell 14.1 10^3/uL (4.4-10.8)
[2024-10-26] MEDS: PIPERACILLIN-TAZOB 3.375GM 100 ML IV SCH (12:31)
[2024-10-26 12:49] LABS: Chloride 105 mmol/L (98-107); Potassium 3.9 mmol/L (3.5-5.1)
[2024-10-26 12:50] LABS: Anion Gap 10 (5-15); Calcium 8.9 mg/dL (8.7-10.4)
[2024-10-26 12:53] LABS: Sodium 146 mmol/L (136-145)
[2024-10-26 12:54] LABS: Carbon Dioxide 31 mmol/L (20-31)
[2024-10-26 12:55] LABS: BUN/Creatinine Ratio 32.9 (10.0-20.0); Glucose 83 mg/dL (74-106); Triglycerides 108 mg/dL (< 150)
[2024-10-26 12:56] LABS: LDL Cholesterol 65 mg/dL (< 100)
[2024-10-26 12:57] LABS: Cholesterol 133 mg/dL (< 200); HDL Cholesterol 46 mg/dL (40-59)
[2024-10-26 12:59] LABS: Blood Urea Nitrogen 27 mg/dL (9-23)
--- NOTE | 2024-10-26 15:26 | DVHSR ---
APPROVED REPORT EXAM: Two-dimensional and M-mode echocardiogram with Doppler and color Doppler. Blood Pressure: 99/50 mmHg INDICATION nstemi DIMENSIONS LVDd4.7 (3.8-5.7cm)LA (2D)5.9 (1.9-4.0cm)Aortic Root2.8 (2.0-3.7cm) LVDs3.8 (2.5-4.0cm)LA (MM) (1.9-4.0cm)Aortic Cusp Exc1.2 (1.5-2.0cm) EF (%) 40.8 (55-70%)Rt. Atrium4.2 (1.9-4.0cm)Asc. Aorta cm IVSd0.8 (0.7-1.1cm)RV (D)4.2 (1.8-2.4cm) PWd1.1 (0.7-1.1cm) Mitral Valve MitralMitral Stenosis E wave1.53m/sMV Mean GR.4mmHg A wave0.90m/sMV Peak GR.9mmHg E/A ratio1.72D MVAcm2 DECEL [id number] 1/2 [id number] IVRTmsDop MVA1.85cm2 Aortic Valve Aortic ValveAortic Stenosis V1m/Barry Mean GR.7mmHg V21.97m/Barry Peak GR.15mmHg AI P 1/2 Mhfm017.42ms Pulmonic Valve V20.65m/s Tricuspid Valve TR Velocity2.51m/s [id number] Other Information Technically limited study due to body habitus. Conclusion Moderately reduced left ventricular systolic function estimated ejection fraction 40% in a [facility] hion. There is a grade one diastolic dysfunction. Normal right ventricular size and dimension. Normal right ventricular systolic function. Estimated right ventricular systolic mm of mercury Moderately severely dilated left atrium. Normal-sized right atrium. There is bioprosthetic mechanical valve in the mitral position. No significant gradient. No signifi cant regurgitation was noted. The aortic valve is thickened and sclerotic no significant stenosis or regurgitation. Tricuspid valve is thickened there is mild tricuspid regurgitation. The pulmonary valve is grossly normal. No pericardial effusion.
--- NOTE | 2024-10-26 16:06 | DVHINCON2 ---
Date Seen: Oct 26, 2024 Referring Physician MD Denise Reason for Consultation NSTEMI History of Present Illness This is a 74-year-old female who presented to the emergency room via EMS with a chief complaint of shortness of breath. At time of assessment patient was found A&O X 4. She is non-verbal given recent tracheostomy placement three weeks ago. Information obtained from son & daughter at bedside as well as other daughter (POA) over the phone. They report the patient had a hospital stay of two months at [facility] and released home 2 days ago. 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 She is status post tracheostomy and lung biopsy with results pending at this time. Per family, during admission she was initially supplied with oxygenation then off any O2 support as the ED provider stated the patient was not going to survive this event and needed comfort measures for end of life care. She then developed acute hypoxia with O2Sats in the 60s% as well as bradycardic events with a HR as low as 20s bpm for which she was administered glucagon and placed on an Epinephrine and Dopamine drip. Heart rate has improved significantly with optimal oxygen support. Patient and family decided for a DNR status at this time. 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 Past Medical History Past medical history reviewed. No other significant than mentioned above. Past Surgical History See HPI. Family History Family history reviewed. Social History Denies the use of illicit drugs, alcohol, or tobacco use. Allergies: Coded Allergies: NO KNOWN ALLERGIES (Unverified , 10/25/24) Home Meds Home medications reviewed. Current Medications Current Medications Medications (Trade) Dose Ordered Sig/Kulwant Route PRN Reason Start Time Stop Time Status Last Admin Dopamine HCl/ Dextrose 250 ml @ 12.75 mls/ hr [id number] IV 10/25/24 20:44 10/25/24 20:44 Epinephrine HCl 250 ml @ 7.5 mls/hr Q24H IV 10/25/24 21:16 10/25/24 21:16 Acetaminophen (Tylenol Tablet) 325 mg Q6HP PRN PO MILD PAIN (1-3 PAIN SCALE) 10/26/24 02:15 Hydromorphone HCl (Dilaudid Injection) 1 mg Q1HP PRN IV SEVERE PAIN (7-10 PAIN SCALE) 10/26/24 02:15 Morphine Sulfate 1 mg Q1HP PRN IV SEVERE PAIN (7-10 PAIN SCALE) 10/26/24 02:15 10/26/24 08:41 Lorazepam (Ativan Tablet) 0.5 mg Q4HP PRN PO ANXIETY 10/26/24 02:15 Alprazolam (Xanax Tablet) 0.25 mg Q8HP PRN PO ANXIETY 10/26/24 02:15 Lorazepam (Ativan Inj) 1 mg Q1HP PRN IV ANXIETY 10/26/24 02:15 10/26/24 02:38 Docusate Sodium (Colace Capsule) 100 mg Q12HR PO 10/26/24 10:00 Bisacodyl (Dulcolax Suppository) 10 mg QHSP PRN DE FOR CONSTIPATION 10/26/24 02:15 Sodium Biphosphate/ Sodium Phosphate 135 ml DAILYP PRN [place] FOR CONSTIPATION 10/26/24 02:15 Ondansetron HCl (Zofran) 4 mg Q4HP PRN IV NAUSEA / VOMITING 10/26/24 02:15 Vancomycin HCl 0 ml @ 0 mls/hr UD IV 10/26/24 10:00 Piperacillin Sod/ Tazobactam Sod 100 ml @ 100 mls/hr Q8HR IV 10/26/24 10:00 10/26/24 12:31 Methylprednisolone Sodium Succinate (Solu Medrol) 40 mg BID IV 10/26/24 10:00 10/26/24 10:38 Diagnostic Test (Pha) (Accu-Chek Comfort Curve T) 1 strip IQ4HR 10/26/24 12:00 10/26/24 12:07 Insulin Human Regular (InsuLIN R) IQ4HR SC 10/26/24 12:00 Dextrose 50 ml UD PRN IV Blood Sugar LESS THAN 60 10/26/24 10:00 Sodium Chloride 1,000 ml @ 60 mls/hr [id number] IV 10/26/24 10:00 10/26/24 10:38 Lorazepam (Ativan Tablet) 0.5 mg Q6HP PRN PO ANXIETY 10/26/24 10:00 Al Hydrox/Mg Hydrox/Simethicone (Maalox Plus) 30 ml Q6HP PRN PO FOR STOMACH DISTRESS 10/26/24 10:00 Docusate Sodium (Colace Capsule) 100 mg BIDPRN PRN PO FOR CONSTIPATION 10/26/24 10:00 Acetaminophen (Tylenol Tablet) 650 mg Q6HP PRN PO PAIN SCALE 1-3 OR TEMP>100.4 10/26/24 10:00 Temazepam (Restoril) 15 mg QHSP PRN PO FOR INSOMNIA 10/26/24 10:00 Acetaminophen/ Hydrocodone Bitart ([place] 5/325MG Tab) 1 tab Q4HP PRN PO MODERATE PAIN (4-6 PAIN SCALE) 10/26/24 10:00 Ondansetron HCl (Zofran) 4 mg Q4HP PRN IV NAUSEA / VOMITING 10/26/24 10:00 Morphine Sulfate 2 mg Q4HPRN PRN IV SEVERE PAIN (7-10 PAIN SCALE) 10/26/24 10:00 Nitroglycerin (Ntrostat Sublingual) 0.4 mg Q5MINP PRN SL FOR CHEST PAIN 10/26/24 10:00 Morphine Sulfate 2 mg Q30M PRN IV FOR CHEST PAIN 10/26/24 10:00 Albuterol (Ventolin Medneb) 2.5 mg Q4HPRN PRN NEB SHORTNESS OF BREATH 10/26/24 10:00 Ipratropium [place] (Atrovent Medneb) 0.5 mg Q4HPRN PRN NEB SHORTNESS OF BREATH 10/26/24 10:00 Furosemide (Lasix Injection) 40 mg BIDD IV 10/26/24 10:00 10/26/24 12:11 Review of Systems Constitutional: No symptom reported Ears, Nose, & Throat: No symptom reported Eyes: No symptom reported Neurological: No symptoms reported Pulmonary/Respiratory: SOB Cardiovascular: No symptom reported Gastrointestinal: No symptom reported Genitourinary: No symptom reported Musculoskeletal: No symptom reported Skin: No symptom reported Psychiatric: No symptom reported Endocrine: No symptom reported Hemotologic/Lymphatic: No symptom reported Vital Signs Vital Signs Date Time Temp Pulse Resp B/P (MAP) Pulse Ox O2 Delivery O2 Flow Rate FiO2 10/26/24 13:39 62 18 104/52 (69) 100 40 10/26/24 10:21 Mechanical Ventilator+ 10/26/24 08:00 98.3 98.3 10/26/24 07:36 0 Physical Exam General Appearance: Cooperative. Well developed. Well nourished. In no acute distress Head Exam: Normal inspection Neck Exam: Normal inspection. Non-tender. Normal alignment Pulmonary/Respiratory: Chest non-tender. Diminished bilateral breath sounds. Trach to vent Cardiovascular/Chest: Regular rate and rhythm. S1, S2. Sinus rhythm. No murmurs. No JVD. Peripheral Pulses: 2+ Radial (R). 2+ Radial (L). 2+ Pedal (R). 2+ Pedal (L) Abdominal Exam: Normal bowel sounds. Soft. Nontender. No hepatospenomegaly. No masses Ankle Exam: Negative ankle edema Lower extremities: Negative lower extremity edema Neuro/Mental Status: A&O x4. Coherent. Nonverbal Thoughts/Psych: Normal thought pattern. Appropriate mood and affect. Good judgement and insight Appearance: In no acute distress Skin Exam: Normal inspection. Pale color. Warm. Dry Labs/Diagnostic Data Labs Test 10/26/24 12:05 10/26/24 12:04 10/26/24 11:05 10/25/24 22:53 Range/Units POC Glucose 82 70-106 mg/dl White Blood Count 14.1 H 4.4-10.8 10^3/uL Red Blood Count 2.63 L 4.0-5.20 10^6/uL Hemoglobin 7.3 #L 12.2-16.2 g/dL Hematocrit 22.8 #L 36.0-46.0 % Mean Corpuscular Volume 86.8 # 80.0-100.0 fL Mean Corpuscular Hemoglobin 27.9 L 28.0-32.0 pg Mean Corpuscular Hemoglobin Concent 32.1 32.0-36.0 g/dL Red Cell Distribution Width 16.6 H 11.8-14.3 % Platelet Count 124 L 140-450 10^3/uL Mean Platelet Volume 9.7 6.9-10.8 fL Neutrophils (%) (Auto) 71.3 37.0-80.0 % Lymphocytes (%) (Auto) 21.4 10.0-50.0 % Monocytes (%) (Auto) 7.1 0.0-12.0 % Eosinophils (%) (Auto) 0.0 0.0-7.0 % Basophils (%) (Auto) 0.2 0.0-2.0 % Neutrophils # (Auto) 10.0 H 1.6-8.6 10 ^3/uL Lymphocytes # (Auto) 3.0 0.4-5.4 10 ^3/uL Monocytes # (Auto) 1.0 0-1.3 10 ^3/uL Eosinophils # (Auto) 0 0-0.8 10 ^3/uL Basophils # (Auto) 0 0-0.2 10 ^3/uL Nucleated Red Blood Cells 0.0 % Sodium Level 146 #H 136-145 mmol/L Potassium Level 3.9 3.5-5.1 mmol/L Chloride Level 105 98-107 mmol/L Carbon Dioxide Level 31 20-31 mmol/L Anion Gap 10 5-15 Blood Urea Nitrogen 27 H 9-23 mg/dL Creatinine 0.82 0.550-1.02 mg/dL Glomerular Filtration Rate Calc 75 >90 mL/min BUN/Creatinine Ratio 32.9 H 10.0-20.0 Serum Glucose 83 74-106 mg/dL Hemoglobin A1c 6.0 H <5.7 % A1C Calcium Level 8.9 8.7-10.4 mg/dL Troponin I High Sensitivity 1503 *H </=34 ng/L Triglycerides Level 108 < 150 mg/dL Cholesterol Level 133 < 200 mg/dL LDL Cholesterol 65 < 100 mg/dL HDL Cholesterol 46 40-59 mg/dL Thyroid Stimulating Hormone (TSH) 7.27 H 0.55-4.78 uIU/mL Blood Gas Specimen Type Arterial Blood Gas Sample Site Right radial Blood Gas Patient Temperature 37.0 Arterial Blood Date Drawn [id number] Arterial Blood pH 7.562 *H 7.350-7.450 Arterial Blood Partial Pressure CO2 32.7 32.0-45.0 mmHg Arterial Blood Partial Pressure O2 81.1 L 83.0-108.0 mmHg Arterial Blood HCO3 28.8 H 21.0-28.0 mmol/L Arterial Blood Oxygen Saturation 97.2 94.0-98.0 % Arterial Blood Base Excess 6.3 H -2.0-3.0 mmol/L Arterial Blood Oxyhemoglobin 95.7 94.0-98.0 % Arterial Blood Carboxyhemoglobin 0.9 0.5-1.5 % Arterial Blood Methemoglobin 0.6 0.0-1.5 % German Test Modified Blood Gas Total Hemoglobin 7.90 L 12.0-16.0 g/dL Blood Gas Set Respiration Rate 18.0 Blood Gas Modality Vent - ac FiO2 % 40.0 Blood Gas Tidal Volume 450.0 Blood Gas PEEP or CPAP 5.0 Blood Gas Critical Value Read Back Yes Blood Gas Notified Whom Alejandro saab md Blood Gas Notified Time [id number] Blood Gas Notified By Lalita wan rrt Lactic Acid Level 8.3 *H 0.4-2.0 mmol/L Test 10/25/24 21:40 10/25/24 20:55 Range/Units Urine Color Yellow Yellow Urine Clarity Clear Clear Urine pH 7.0 5.0-9.0 Urine Specific [place] 1.019 1.001-1.035 Urine Protein 2+ H Negative Urine Ketones Negative Negative Urine Blood Negative Negative /uL Urine Nitrite Negative Negative Urine Bilirubin Negative Negative Urine Urobilinogen 2 H Negative mg/dL Urine Leukocyte Esterase Negative Negative /uL Urine RBC <1 0 - 4 /hpf Urine WBC 1 0 - 5 /hpf Urine Squamous Epithelial Cells Few <5 /hpf Urine Bacteria None seen None Seen /hpf Urine Yeast (Budding) Occasional None Seen /hpf Urine Glucose Normal Normal mg/dL Prothrombin Time 11.7 9.3-11.8 sec Prothrombin Time INR 1.11 0.9-1.15 Activated Partial Thromboplast Time 22.8 L 24.5-34.5 SEC Magnesium Level 2.6 1.6-2.6 mg/dL Total Bilirubin 0.3 0.2-1.0 mg/dL Aspartate Amino Transferase (AST) 31 13-40 U/L Alanine Aminotransferase (ALT) 30 7-40 U/L Alkaline Phosphatase 170 H 46-116 U/L Ammonia 33 H 11-32 umol/L B-Type Natriuretic Peptide 1284.16 0-100 pg/mL Total Protein 6.8 5.7-8.2 g/dL Albumin 4.1 3.2-4.8 g/dL Microbiology Date/Time Source Procedure Growth Status 10/25/24 21:40 Voided Urine Urine Culture - Preliminary Resulted Assessment Sick sinus syndrome likely hypoxia induced Acute on chronic decompensated HFrEF, NYHA Class III Thyroid cancer with metastasis to lungs/trachea status post tracheostomy (3 wks ago) Acute on chronic hypoxic respiratory failure NSTEMI, likely type 2 secondary to above Severe mitral stenosis status post balloon valvuloplasty s/p bioprosthetic MVR with CTS (2013) NYA closure and primary ASD closure with CTS (11/20/23) 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 Prabhakar) Case discussed with Dr. Prabhakar. The patient underwent a transthoracic echocardiogram revealing an EF of 40%. She presents with sick sinus syndrome likely induced by extreme hypoxemia as she was off O2 support for many hours during ED admission. She is now cardiac stable, chest pain free, and receiving optimal O2 supplementation. A discussion was held with son and daughters, including POA, at bedside. They prefer for the patient to be discharge in order to further evaluate need of a pacemaker/AICD implantation with primary immigration case worker in [place], Dr. Tijerina. In the meantime, only continue low-dose amiodarone QD and avoid any other AV justin blocking agents. Initiate GDMT for C HF and avoid BB. Given acute anemia, transfuse PRBCs as ordered. Avoid NOAC/AC/antiplatelet therapy. There is no active bleeding at this time. There is no invasive cardiac work-up indicated. Please call cardiology in the setting of further in-patient work-up deemed to be necessary. Thank you for allowing us to participate in this patient's care. Critical care time: 40 min. This medical document was created using an electronic medical record system with voice recognition software and Loop Trolleyized dictation system. Although this document has been carefully reviewed, there might still be some phonetic and typographical errors. Occasional wrong-word or ``sound-alike substitutions may have occurred due to the inherent limitations of voice recognition software. These areas are purely typographical due to imperfections of the software programs and do not reflect a ny compromise in the patient's medical care. Please read the chart carefully and recognize, using context, where these substitutions have occurred. Plan discussed with: Patient, Daughter, Son, Other NYHA Physical activity limitations: Class3(Marked) ordinary (activity causes symtoms) Date of Service: Oct 26, 2024 Billing Provider: JOI PRABHAKAR MD Cardiology Common Codes: [id number] CARE 30-74 MIN [facility] Oct 26, 2024 16:06
[2024-10-26] MEDS: ONDANSETRON HCL 4 MG/2 ML VIAL IV PRN (17:33)
[2024-10-26 20:22] LABS: Hemoglobin 10.3 g/dL (12.2-16.2)
[2024-10-26] MEDS: SACUBITRIL-VALSARTAN 24mg/26mg TAB PO SCH (22:40)
[2024-10-26] MEDS: ACETAMINOPHEN 325 MG TAB PO PRN (23:27)
[2024-10-27] VITALS (14 sets, daily range): BP systolic 101–155; BP diastolic 44–84; PULSE 62–69; RESP 18–25; O2SAT 98–100
[2024-10-27] MEDS: VANCOMYCIN 750mg/150ml 150 ML IV SCH (00:47)
[2024-10-27] MEDS: VANCOMYCIN 1GM/250ML KIT 200 ML IV ONE ×2 (00:47→23:33)
[2024-10-27 03:56] LABS: Basophils # (auto) 0 10 ^3/uL (0-0.2); Basophils % (auto) 0.1 % (0.0-2.0); Eosinophils # (auto) 0 10 ^3/uL (0-0.8); Hematocrit 27.8 % (36.0-46.0); Hemoglobin 9.5 g/dL (12.2-16.2); Lymphocytes # (auto) 1.9 10 ^3/uL (0.4-5.4); Lymphocytes % (auto) 17.4 % (10.0-50.0); Mean Corpuscular Hemoglobin 29.5 pg (28.0-32.0); Mean Corpuscular Hgb Conc. 34.3 g/dL (32.0-36.0); Mean Corpuscular Volume 86.1 fL (80.0-100.0); Monocytes # (auto) 0.4 10 ^3/uL (0-1.3); Neutrophils # (auto) 8.6 10 ^3/uL (1.6-8.6); Neutrophils % (auto) 78.5 % (37.0-80.0); Nucleated Red Blood Cells % 0.1 %; Platelet Count (auto) 109 10^3/uL (140-450); Red Blood Cells 3.23 10^6/uL (4.0-5.20); Red Cell Distribution Width 16.1 % (11.8-14.3); White Blood Cell 10.9 10^3/uL (4.4-10.8)
[2024-10-27 04:09] LABS: Chloride 104 mmol/L (98-107); Potassium 3.9 mmol/L (3.5-5.1); Sodium 145 mmol/L (136-145)
[2024-10-27 04:10] LABS: Anion Gap 17 (5-15); Carbon Dioxide 24 mmol/L (20-31)
[2024-10-27 04:11] LABS: Calcium 9.2 mg/dL (8.7-10.4)
[2024-10-27 04:15] LABS: BUN/Creatinine Ratio 30.6 (10.0-20.0)
[2024-10-27 04:17] LABS: Blood Urea Nitrogen 33 mg/dL (9-23); Glucose 153 mg/dL (74-106)
[2024-10-27] MEDS: SPIRONOLACTONE 25 MG TAB PO SCH (10:19)
[2024-10-27] MEDS: AMIODARONE HCL 200 MG TAB PO SCH (10:19)
--- NOTE | 2024-10-27 11:59 | DVHPN2 ---
Reviewed: Care Plan, H&P, Labs, Medications, Previous Orders, Radiology Changes from previous H/P or p: No Changes General: Per HPI Objective Vitals Vital Signs Date Time Temp Pulse Resp B/P (MAP) Pulse Ox O2 Delivery O2 Flow Rate FiO2 10/27/24 11:01 24 99 30 10/27/24 08:00 66 10/27/24 07:30 Mechanical Ventilator+ 10/27/24 07:30 99.1 99.1 10/26/24 19:13 3 Intake/Output Intake and Output 10/27/24 07:00 Intake Total 3175 ml Output Total 2900 ml Balance 275 ml Intake Oral 0 ml IV Total 1990 ml Tube Feeding 585 ml Blood Product 600 ml Output Urine Total 2900 ml Medications Current Medications Medications Dose Ordered Sig/Kulwant Route Start Time Stop Time Status Last Admin Dose Admin Morphine Sulfate 1 mg Q1HP PRN IV 10/26/24 02:15 10/26/24 08:41 1 MG Lorazepam 1 mg Q1HP PRN IV 10/26/24 02:15 10/26/24 02:38 1 MG Bisacodyl 10 mg QHSP PRN [place] 10/26/24 02:15 Sodium Biphosphate/ Sodium Phosphate 135 ml DAILYP PRN [place] 10/26/24 02:15 Vancomycin HCl 0 ml @ 0 mls/hr UD IV 10/26/24 10:00 Piperacillin Sod/ Tazobactam Sod 100 ml @ 100 mls/hr Q8HR IV 10/26/24 10:00 10/27/24 05:55 100 MLS/HR Methylprednisolone Sodium Succinate 40 mg BID IV 10/26/24 10:00 10/27/24 10:17 40 MG Diagnostic Test (Pha) 1 strip IQ4HR 10/26/24 12:00 10/27/24 08:10 1 STRIP Insulin Human Regular IQ4HR SC 10/26/24 12:00 10/27/24 08:15 4 UNITS Dextrose 50 ml UD PRN IV 10/26/24 10:00 Sodium Chloride 1,000 ml @ 60 mls/hr [id number] IV 10/26/24 10:00 10/27/24 02:50 60 MLS/HR Al Hydrox/Mg Hydrox/Simethicone 30 ml Q6HP PRN PO 10/26/24 10:00 Docusate Sodium 100 mg BIDPRN PRN PO 10/26/24 10:00 Acetaminophen 650 mg Q6HP PRN PO 10/26/24 10:00 10/26/24 23:27 650 MG Temazepam 15 mg QHSP PRN PO 10/26/24 10:00 Acetaminophen/ Hydrocodone Bitart 1 tab Q4HP PRN PO 10/26/24 10:00 Ondansetron HCl 4 mg Q4HP PRN IV 10/26/24 10:00 10/26/24 17:33 4 MG Nitroglycerin 0.4 mg Q5MINP PRN SL 10/26/24 10:00 Albuterol 2.5 mg Q4HPRN PRN NEB 10/26/24 10:00 Ipratropium [place] 0.5 mg Q4HPRN PRN NEB 10/26/24 10:00 Furosemide 40 mg BIDD IV 10/26/24 10:00 10/27/24 05:54 40 MG Sacubitril/ Valsartan 0.5 tab BID PO 10/26/24 22:00 Spironolactone 12.5 mg DAILY PO 10/27/24 10:00 10/27/24 10:19 12.5 MG Amiodarone HCl 100 mg DAILY PO 10/27/24 10:00 10/27/24 10:19 100 MG Vancomycin HCl 150 ml @ 150 mls/hr Q12H IV 10/26/24 23:00 10/27/24 11:09 150 MLS/HR Laboratory Results Laboratory Tests 10/27/24 03:25 Chemistry Test 10/26/24 12:04 10/27/24 03:25 Calcium Level 8.9 mg/dL (8.7-10.4) 9.2 mg/dL (8.7-10.4) Lipid panel Test 10/26/24 12:04 Cholesterol Level 133 mg/dL (< 200) HDL Cholesterol 46 mg/dL (40-59) Triglycerides Level 108 mg/dL (< 150) HgA1c, TSH Test 10/26/24 12:04 Hemoglobin A1c 6.0 % A1C (<5.7) H Thyroid Stimulating Hormone (TSH) 7.27 uIU/mL (0.55-4.78) H Urinalysis Test 10/25/24 21:40 Urine Color Yellow (Yellow) Urine Clarity Clear (Clear) Urine pH 7.0 (5.0-9.0) Urine Specific [place] 1.019 (1.001-1.035) Urine Protein 2+ (Negative) H Urine Ketones Negative (Negative) Urine Blood Negative /uL (Negative) Urine Nitrite Negative (Negative) Urine Bilirubin Negative (Negative) Urine Urobilinogen 2 mg/dL (Negative) H Urine Leukocyte Esterase Negative /uL (Negative) Urine RBC <1 /hpf (0 - 4) Urine WBC 1 /hpf (0 - 5) Urine Squamous Epithelial Cells Few /hpf (<5) Urine Bacteria None seen /hpf (None Seen) Urine Yeast (Budding) Occasional /hpf (None Urine Glucose Normal mg/dL (Normal) Microbiology Microbiology Date/Time Source Procedure Growth Status 10/26/24 09:42 Sputum Gram Stain - Final Resulted 10/26/24 09:42 Sputum Respiratory Culture - Preliminary Resulted 10/25/24 21:40 Voided Urine Urine Culture - Preliminary Resulted 10/25/24 21:21 Trachea Gram Stain - Final Resulted 10/25/24 21:21 Trachea Respiratory Culture - Preliminary Resulted 10/25/24 21:10 Blood Blood Culture - Preliminary Resulted Labs and/or images reviewed: Labs reviewed by me, Image(s) reviewed by me Assessment/Plan Assessment/Plan Sick sinus syndrome likely hypoxia induced Septic shock unknown etiology: Blood cultures vancomycin Zosyn Acute on chronic decompensated HFrEF, NYHA Class III ejection fraction 40 percent Thyroid cancer with metastasis to lungs/trachea status post tracheostomy (3 wks ago) Acute on chronic hypoxic respiratory failure: Connected to the ventilator through tracheostomy 30 percent FiO2 NSTEMI, likely type 2 secondary to above Severe mitral stenosis status post balloon valvuloplasty s/p bioprosthetic MVR with CTS (2013) NYA closure and primary ASD closure with CTS (11/20/23) 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
[2024-10-27] MEDS ORDERED: ACETYLCYSTEINE 10 %(100MG/ML) SOL 4ML NEB SCH (18:00)
[2024-10-27] MEDS: ALBUTEROL SULF 2.5 MG/0.5ML(0.5%) NEB SOLN NEB PRN (19:11)
[2024-10-27] MEDS: ACETYLCYSTEINE 10 %(100MG/ML) SOL 4ML NEB SCH (19:11)
[2024-10-27] MEDS: MIDAZOLAM HCL 2MG/2ML 2ml VIAL (1mg/ml) IV ONE (21:09)
[2024-10-27] MEDS: diphenhdrAMINE HCL 50 MG/1 ML VL IV ONE (21:09)
[2024-10-27] MEDS: fentaNYL CITRATE 100 MCG/2 ML VL ONE (21:09)
[2024-10-27] MEDS: MIDAZOLAM HCL 2MG/2ML 2ml VIAL (1mg/ml) ONE (21:09)
[2024-10-27] MEDS: fentaNYL CITRATE 100 MCG/2 ML VL IV ONE (21:09)
[2024-10-27] MEDS: diphenhdrAMINE HCL 50 MG/1 ML VL ONE (21:09)
--- NOTE | 2024-10-27 21:25 | DVHNC2 ---
Procedure - Bronchoscopy procedure note: Indications: Atelectasis, Possible mucous plugging. Medicines: See ED/CORPORATE REAL ESTATE MANAGER notes. Versed 2 mg IVP, Fentanyl 25 mcg IVP, Benadryl 25 mg IVP. Complications: None Time out 2108 Procedure: Patient medications and allergies reviewed. The risks and benefits of the procedure and the sedation options and risk were discussed with the patient and the patient's healthcare proxy. All questions were answered and informed consent was obtained. Patient identification and proposed procedure were verified prior to the procedure by the physician, and a nurse, and the respiratory therapist in ICU room. The heart rate, respiratory rate, oxygen saturations, blood pressure, adequacy of pulmonary ventilation, and response to care were monitored throughout the procedure. The physical status of the patient was reassessed after the procedure. After obtaining informed consent, the bronchoscope was introduced through the endotracheal tube and advanced into the trachea bronchial tree of both lungs. The procedure was accomplished without difficulty. The patient tolerated the procedure well. Findings: The trachea is in normal caliber. The tonny is sharp. The tracheobronchial tree of the right lung was examined to at least the first subsegmental level. The bronchial mucosa was erythematous. The anatomy in the right lung is normal. There are no endobronchial lesions. There was copious whitish secretions from right main stem bronchus onward throughout R1-R3. Thick mucous plug removed from right upper lobe with 30 mL NS instilled. Right middle lobe (RML) Bronchoalveolar lavage (BAL) obtained. RML BAL sent for gram stain and culture, viral culture, fungal culture. The left upper lobe, lingula, and left lower lobe were examined to at least the first subsegmental level. Bronchial mucosa and anatomy in the left upper lobe and lingula are normal. There were no endobronchial lesions. There were no secr etions. There was no active bleeding at the completion of the procedure. Estimated blood loss: Less than 5 mL. Impression: Right upper lobe atelectasis due to mucous plugging Mucous plugging from R1-R3 RML BAL performed Recommendation: Follow-up RML BAL results. Procedure codes: 82553/72262, bronchoscopy, rigid and flexible, including fluoroscopic guidance, one performed; with bronchial endobronchial broncho-alveo lar lavage, single or multiple sites BASSAM RG MD Oct 27, 2024 21:25
--- NOTE | 2024-10-27 21:27 | DVHNC2 ---
Procedure - I administered moderate sedation throughout the 11 minutes of the procedure. An independent observer administered medications at my direction and monitored the patient's level of consciousness and physiological status throughout the procedure. CPT 24495 for the first 15 minutes. CONSCIOUS SEDATION PROCEDURE NOTE: Procedural Sedation Performed by: Dr Holden Ordaz Indications: Bronchoscopy WITH Bronchoalveolar lavage [place] Protocol: a time out was performed and the correct patient and site were verified Consent: The risks and benefits of monitored anesthesia care, including the risk of aspiration, deep sedation requiring airway management including possible intubation, nausea/vomiting and the risks of not performing the procedure, including severe pain and inability to complete the procedure, were all discussed with the patient and her proxy. The alternatives of performing the procedure, including local anesthesia and IV analgesia, also discussed. The patient has a ride home available. ASA Class: II-mild systemic disease Mallampati Score: 2 Pre-anesthesia evaluation, including history, exam, and informed consent is documented in the note above. Monitoring: Continuous monitoring of heart rate, respiratory rate, pulse oximetry and ETCO2. Supplemental oxygen prior to and during procedure via nasal cannula. Resuscitation equipment available at the bedside during sedation. Intra-service start time: 908 pm Intra-service stop time: 919 pm The patient received Fentanyl 25 mcg IVP, Versed 2mg IVP and Benadryl 25 mg IVP and dosages were recorded on the sedation form. The patient was recovered from the sedation without complication or incident. Patient returned to pre-sedation level of awareness. The monitoring was discontinued at this time. Post-anesthesia evaluation: Respiratory function, cardiovascular function, temperature, and mental status [did/did not] return to pre-anesthetic state. Pain was controlled. The patient tolerated p.nanette. BASSAM ORDAZ MD Oct 27, 2024 21:27
--- NOTE | 2024-10-27 21:34 | DVHINCON2 ---
Date of service: Oct 27, [address] Rosario Dawson Reason for Consultation Ventilator management History of Present Illness 74-year-old woman history of lung and thyroid cancer status post tracheostomy was brought in by ambulance with a chief complaint of shortness of breath. Per EMS report, patient's family called after patient had difficulty breathing. She recently had a trach placed two weeks ago due to throat cancer. Patient's pulse was low with a heart rate in the 20s to 30s. She had to be bag-valve masked. She was currently awake, alert, and following commands. She is on the ventilator via her tracheostomy. Pulmonary consultation is called for mechanical ventilation management, assessment for bronchoscopy. Review of systems: 14 point review of systems is negative unless otherwise noted above. Past medical history: Through and thyroid cancer Past surgical history: Status post tracheostomy Medications: Reviewed Allergies: No known drug allergies. Family history: No family history of premature CAD. No family history of lung disease. Social history: Nonsmoker. No alcohol or illicit drug use. Lives at home with family. Allergies: Coded Allergies: NO KNOWN ALLERGIES (Unverified , 10/25/24) Current Medications Current Medications Medications (Trade) Dose Ordered Sig/Kulwant Route PRN Reason Start Time Stop Time Status Last Admin Sacubitril/ Valsartan (Entresto 24-26 Mg tab) 0.5 tab BID PO 10/26/24 22:00 Spironolactone (Aldactone) 12.5 mg DAILY PO 10/27/24 10:00 10/27/24 10:19 Amiodarone HCl (Cordarone Tablet) 100 mg DAILY PO 10/27/24 10:00 10/27/24 10:19 Vancomycin HCl 150 ml @ 150 mls/hr Q12H IV 10/26/24 23:00 10/27/24 11:09 Acetylcysteine (Mucomyst Inahalation 10%) 100 mg Q4HR NEB 10/27/24 18:00 10/27/24 18:17 DC Acetylcysteine (Mucomyst Inahalation 10%) 100 mg Q4HWA NEB 10/27/24 18:15 10/27/24 19:11 Vital Signs Vital Signs Date Time Temp Pulse Resp B/P (MAP) Pulse Ox O2 Delivery O2 Flow Rate FiO2 10/27/24 20:38 23 136/63 (87) 99 30 10/27/24 20:30 64 10/27/24 19:25 98.4 98.4 10/27/24 19:25 Mechanical Ventilator+ 10/26/24 19:13 3 Physical Exam Gen.: Patient lying in bed in medical ED. Head: Normocephalic, atraumatic. Eyes: PERRLA. Ears: Normal external anatomy. Throat: Status post tracheostomy , Neck: Supple, trachea midline. Chest: Transmitted breath sounds bilaterally. Decreased air entry bilaterally. No wheezing. Bibasilar crackles. Cardio vascular: Positive S1, positive S2. Regular rate and rhythm. Abdomen: PEG tube in place. Positive bowel sounds in all 4 quadrants. Soft, nontender, nondistended. : Gerber in place. Normal external genitalia. Rectal: Deferred Skin: Warm, dry. Intact. Extremities: 2+ radial pulses bilaterally. No lower extremity edema. Neuro: Awake, alert, following commands. CN II-XII intact. No gross motor or sensory deficits. Labs/Diagnostic Data Labs Test 10/27/24 19:54 10/27/24 03:25 10/26/24 12:04 10/26/24 11:05 Range/Units POC Glucose 140 H 70-106 mg/dl White Blood Count 10.9 H 4.4-10.8 10^3/uL Red Blood Count 3.23 L 4.0-5.20 10^6/uL Hemoglobin 9.5 L 12.2-16.2 g/dL Hematocrit 27.8 #L 36.0-46.0 % Mean Corpuscular Volume 86.1 80.0-100.0 fL Mean Corpuscular Hemoglobin 29.5 28.0-32.0 pg Mean Corpuscular Hemoglobin Concent 34.3 32.0-36.0 g/dL Red Cell Distribution Width 16.1 H 11.8-14.3 % Platelet Count 109 L 140-450 10^3/uL Mean Platelet Volume 10.2 6.9-10.8 fL Neutrophils (%) (Auto) 78.5 37.0-80.0 % Lymphocytes (%) (Auto) 17.4 10.0-50.0 % Monocytes (%) (Auto) 4.0 0.0-12.0 % Eosinophils (%) (Auto) 0.0 0.0-7.0 % Basophils (%) (Auto) 0.1 0.0-2.0 % Neutrophils # (Auto) 8.6 1.6-8.6 10 ^3/uL Lymphocytes # (Auto) 1.9 0.4-5.4 10 ^3/uL Monocytes # (Auto) 0.4 0-1.3 10 ^3/uL Eosinophils # (Auto) 0 0-0.8 10 ^3/uL Basophils # (Auto) 0 0-0.2 10 ^3/uL Nucleated Red Blood Cells 0.1 % Sodium Level 145 136-145 mmol/L Potassium Level 3.9 3.5-5.1 mmol/L Chloride Level 104 98-107 mmol/L Carbon Dioxide Level 24 20-31 mmol/L Anion Gap 17 H 5-15 Blood Urea Nitrogen 33 H 9-23 mg/dL Creatinine 1.08 #H 0.550-1.02 mg/dL Glomerular Filtration Rate Calc 54 >90 mL/min BUN/Creatinine Ratio 30.6 H 10.0-20.0 Serum Glucose 153 H 74-106 mg/dL Calcium Level 9.2 8.7-10.4 mg/dL Hemoglobin A1c 6.0 H <5.7 % A1C Troponin I High Sensitivity 1503 *H </=34 ng/L Triglycerides Level 108 < 150 mg/dL Cholesterol Level 133 < 200 mg/dL LDL Cholesterol 65 < 100 mg/dL HDL Cholesterol 46 40-59 mg/dL Thyroid Stimulating Hormone (TSH) 7.27 H 0.55-4.78 uIU/mL Blood Gas Specimen Type Arterial Blood Gas Sample Site Right radial Blood Gas Patient Temperature 37.0 Arterial Blood Date Drawn [id number] Arterial Blood pH 7.562 *H 7.350-7.450 Arterial Blood Partial Pressure CO2 32.7 32.0-45.0 mmHg Arterial Blood Partial Pressure O2 81.1 L 83.0-108.0 mmHg Arterial Blood HCO3 28.8 H 21.0-28.0 mmol/L Arterial Blood Oxygen Saturation 97.2 94.0-98.0 % Arterial Blood Base Excess 6.3 H -2.0-3.0 mmol/L Arterial Blood Oxyhemoglobin 95.7 94.0-98.0 % Arterial Blood Carboxyhemoglobin 0.9 0.5-1.5 % Arterial Blood Methemoglobin 0.6 0.0-1.5 % German Test Modified Blood Gas Total Hemoglobin 7.90 L 12.0-16.0 g/dL Blood Gas Set Respiration Rate 18.0 Blood Gas Modality Vent - ac FiO2 % 40.0 Blood Gas Tidal Volume 450.0 Blood Gas PEEP or CPAP 5.0 Blood Gas Critical Value Read Back Yes Blood Gas Notified Whom Alejandro saab md Blood Gas Notified Time [id number] Blood Gas Notified By Lalita wan communications analyst Test 10/25/24 22:53 10/25/24 21:40 10/25/24 20:55 Range/Units Lactic Acid Level 8.3 *H 0.4-2.0 mmol/L Urine Color Yellow Yellow Urine Clarity Clear Clear Urine pH 7.0 5.0-9.0 Urine Specific [place] 1.019 1.001-1.035 Urine Protein 2+ H Negative Urine Ketones Negative Negative Urine Blood Negative Negative /uL Urine Nitrite Negative Negative Urine Bilirubin Negative Negative Urine Urobilinogen 2 H Negative mg/dL Urine Leukocyte Esterase Negative Negative /uL Urine RBC <1 0 - 4 /hpf Urine WBC 1 0 - 5 /hpf Urine Squamous Epithelial Cells Few <5 /hpf Urine Bacteria None seen None Seen /hpf Urine Yeast (Budding) Occasional None Seen /hpf Urine Glucose Normal Normal mg/dL Prothrombin Time 11.7 9.3-11.8 sec Prothrombin Time INR 1.11 0.9-1.15 Activated Partial Thromboplast Time 22.8 L 24.5-34.5 SEC Magnesium Level 2.6 1.6-2.6 mg/dL Total Bilirubin 0.3 0.2-1.0 mg/dL Aspartate Amino Transferase (AST) 31 13-40 U/L Alanine Aminotransferase (ALT) 30 7-40 U/L Alkaline Phosphatase 170 H 46-116 U/L Ammonia 33 H 11-32 umol/L B-Type Natriuretic Peptide 1284.16 0-100 pg/mL Total Protein 6.8 5.7-8.2 g/dL Albumin 4.1 3.2-4.8 g/dL Microbiology Date/Time Source Procedure Growth Status 10/26/24 09:42 Sputum Gram Stain - Final Resulted 10/26/24 09:42 Sputum Respiratory Culture - Preliminary Resulted 10/25/24 21:40 Voided Urine Urine Culture - Preliminary Resulted 10/25/24 21:21 Trachea Gram Stain - Final Resulted 10/25/24 21:21 Trachea Respiratory Culture - Preliminary Resulted 10/25/24 21:10 Blood Blood Culture - Preliminary Resulted Assessment Impression: Acute hypoxic respiratory failure On mechanical ventilator CHF Bradycardia Status post tracheostomy Sepsis Mucus plugging of the right upper lobe Plan: s/p intubation on mechanical ventilator Performed bedside bronchoscopy to clear suspected mucus plugs. There was copious mucus plugs in the right upper lobe in our one through our three. Updated family at bedside in regards to findings. See separate procedure note for full details. CXR image and report reviewed. Trach in place. Hypoinflation. Patchy opacification of the right mid lung zone and left mid lung zone, possible pneumonitis. No pleural effusion or pneumothorax. ABG reviewed. Alkalemia. On assist control with a respiratory rate of 18, tidal volume 450, peep of five, FiO2 of 40%. Titrate FIO2 to keep O2 saturation above 92%. VAP bundle Daily ABG and CXR while intubated. Transitioned to trach collar in the morning. Continue antibiotics. F/u cultures. WBC count trending down. Monitor renal function. Monitor electrolytes. Supplement as necessary. Monitor hemoglobin Nutritional support. Accucheks, ISS. Obtain social work/case management consultation to obtain a Passy Marie valve for patient. GI/DVT prophylaxis. Condition: Critical Prognosis: Poor given multiple comorbidities. Rest of plan per hospitalist and other consultants. A total of 36 minutes of critical care time was spent reviewing the patient record, examining the patient, making a diagnostic and therapeutic plan, d iscussing this plan with the medical personnel, following up on diagnostic studies and following the patient for clinical stability excluding any and all procedures. At least 50% of this time was spent in direct, [id number] contact. Thank you Dr. Rosario Dawson for allowing me to participate in this patient's care. Further recommendations will depend on patient's clinical course. Please do not hesitate to contact me if you have any questions or concerns. This medical document was created using an electronic medical record system with [employer] system. Although this document has been carefully reviewed, there may still be some phonetic and typographical errors. These areas are purely typographical due to imperfections of the software programs, and do not reflect any compromise in the patient's medical care. Plan discussed with: Patient, Daughter, Other (DIMITRI Levin, RT, ) BASSAM RG MD Oct 27, 2024 21:34
[2024-10-28] VITALS (26 sets, daily range): BP systolic 106–143; BP diastolic 50–66; PULSE 58–72; RESP 16–24; TEMP 97.8–98.5; O2SAT 97–100
[2024-10-28] MEDS: IPRATROPIUM BROM 0.5 MG/2.5ML INH SOL NEB PRN (06:08)
--- NOTE | 2024-10-28 08:13 | DVHPN2 ---
Reviewed: Care Plan, H&P, Labs, Medications, Previous Orders, Radiology Changes from previous H/P or p: No Changes General: Per HPI Objective Vitals Vital Signs Date Time Temp Pulse Resp B/P (MAP) Pulse Ox O2 Delivery O2 Flow Rate FiO2 10/28/24 07:00 66 19 120/50 (73) 98 10/28/24 06:09 30 10/27/24 19:25 98.4 98.4 10/27/24 19:25 Mechanical Ventilator+ 10/26/24 19:13 3 Intake/Output Intake and Output 10/28/24 07:00 Intake Total 1060 ml Output Total 1840 ml Balance -780 ml IV Total 1060 ml Output Urine Total 1840 ml Medications Current Medications Medications Dose Ordered Sig/Kulwant Route Start Time Stop Time Status Last Admin Dose Admin Morphine Sulfate 1 mg Q1HP PRN IV 10/26/24 02:15 10/26/24 08:41 1 MG Lorazepam 1 mg Q1HP PRN IV 10/26/24 02:15 10/26/24 02:38 1 MG Bisacodyl 10 mg QHSP PRN [place] 10/26/24 02:15 Sodium Biphosphate/ Sodium Phosphate 135 ml DAILYP PRN UT 10/26/24 02:15 Vancomycin HCl 0 ml @ 0 mls/hr UD IV 10/26/24 10:00 Piperacillin Sod/ Tazobactam Sod 100 ml @ 100 mls/hr Q8HR IV 10/26/24 10:00 10/28/24 05:58 100 MLS/HR Methylprednisolone Sodium Succinate 40 mg BID IV 10/26/24 10:00 10/27/24 22:02 40 MG Diagnostic Test (Pha) 1 strip IQ4HR 10/26/24 12:00 10/28/24 03:53 1 STRIP Insulin Human Regular IQ4HR SC 10/26/24 12:00 10/27/24 23:53 2 UNITS Dextrose 50 ml UD PRN IV 10/26/24 10:00 Sodium Chloride 1,000 ml @ 60 mls/hr [id number] IV 10/26/24 10:00 10/27/24 19:37 60 MLS/HR Al Hydrox/Mg Hydrox/Simethicone 30 ml Q6HP PRN PO 10/26/24 10:00 Docusate Sodium 100 mg BIDPRN PRN PO 10/26/24 10:00 Acetaminophen 650 mg Q6HP PRN PO 10/26/24 10:00 10/26/24 23:27 650 MG Temazepam 15 mg QHSP PRN PO 10/26/24 10:00 Acetaminophen/ Hydrocodone Bitart 1 tab Q4HP PRN PO 10/26/24 10:00 Ondansetron HCl 4 mg Q4HP PRN IV 10/26/24 10:00 10/26/24 17:33 4 MG Nitroglycerin 0.4 mg Q5MINP PRN SL 10/26/24 10:00 Albuterol 2.5 mg Q4HPRN PRN NEB 10/26/24 10:00 10/28/24 06:08 2.5 MG Ipratropium [place] 0.5 mg Q4HPRN PRN NEB 10/26/24 10:00 10/28/24 06:08 0.5 MG Furosemide 40 mg BIDD IV 10/26/24 10:00 10/28/24 05:58 40 MG Sacubitril/ Valsartan 0.5 tab BID PO 10/26/24 22:00 10/27/24 22:02 0.5 TAB Spironolactone 12.5 mg DAILY PO 10/27/24 10:00 10/27/24 10:19 12.5 MG Amiodarone HCl 100 mg DAILY PO 10/27/24 10:00 10/27/24 10:19 100 MG Acetylcysteine 100 mg Q4HWA NEB 10/27/24 18:15 10/28/24 06:08 100 MG Vancomycin HCl 150 ml @ 150 mls/hr Q12H IV 10/28/24 12:00 Micafungin Sodium 100 mg/Sodium Chloride 100 ml @ 100 mls/hr DAILY IV 10/28/24 10:00 UNV Laboratory Results Laboratory Tests 10/27/24 03:25 Urinalysis Test 10/25/24 21:40 Urine Color Yellow (Yellow) Urine Clarity Clear (Clear) Urine pH 7.0 (5.0-9.0) Urine Specific [place] 1.019 (1.001-1.035) Urine Protein 2+ (Negative) H Urine Ketones Negative (Negative) Urine Blood Negative /uL (Negative) Urine Nitrite Negative (Negative) Urine Bilirubin Negative (Negative) Urine Urobilinogen 2 mg/dL (Negative) H Urine Leukocyte Esterase Negative /uL (Negative) Urine RBC <1 /hpf (0 - 4) Urine WBC 1 /hpf (0 - 5) Urine Squamous Epithelial Cells Few /hpf (<5) Urine Bacteria None seen /hpf (None Seen) Urine Yeast (Budding) Occasional /hpf (None Urine Glucose Normal mg/dL (Normal) Microbiology Microbiology Date/Time Source Procedure Growth Status 10/26/24 09:42 Sputum Gram Stain - Final Resulted 10/26/24 09:42 Sputum Respiratory Culture - Preliminary Resulted 10/25/24 21:40 Voided Urine Urine Culture - Preliminary Yeast, not Isabel albicans Resulted 10/25/24 21:21 Trachea Gram Stain - Final Resulted 10/25/24 21:21 Trachea Respiratory Culture - Preliminary Resulted 10/25/24 21:10 Blood Blood Culture - Preliminary Resulted Labs and/or images reviewed: Labs reviewed by me, Image(s) reviewed by me Assessment/Plan Assessment/Plan Sick sinus syndrome likely hypoxia induced Septic shock unknown etiology: Blood cultures negative, sputum cultures growing Gram-negative rods, continue vancomycin Zosyn Acute on chronic decompensated HFrEF, NYHA Class III ejection fraction 40 % cardiology consult by dr Keenan appreciated 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 Ordaz appreciated Status post bronchoscopy with lavage of the right middle bronchus by Dr. Ordaz Yeast not Isabel in the sputum: Micafungin IV NSTEMI, likely type 2 secondary to above Severe mitral stenosis status post balloon valvuloplasty s/p bioprosthetic MVR with CTS (2013) NYA closure and primary ASD closure with CTS (11/20/23) R [employer]ORIZONT[employer]PER[employer] territory CVA (12/2018 & 03/2020) Prediabetes, newly diagnosed Hx UGIB s/p transfusion Acute on chronic anemia Two month stay at [facility] discharged two days back home and the patient was brought to the ER General condition Very poor Time spent 65 minutes Discussed with the patient's daughter and power of claim attorney Georgette [phone] at bedside and she requested the patient be placed on DNR Orders placed Plan discussed with: Patient My Orders Orders - SHAILESH DING MD Procedure Category Date Status Time *Consult CONS 10/27/24 Transmitted / 13:05 Acetylcysteine PHA 10/27/24 In Process Inhalation 10% 18:15 Micafungin Sodium PHA 10/28/24 Logged (Mycamine) 10:00 Date of Service: Oct 28, 2024 Billing Provider: SHAILESH DING MD Common Visit Codes: [id number] CARE 30-74 MIN SHAILESH DING MD Oct 28, 2024 08:13
[2024-10-28] MEDS: MICAFUNGIN SODIUM 100 MG in SODIUM CHL 0.9% 100 ML IV SCH (10:00)
[2024-10-28 11:35] LABS: Base Excess -1.3 mmol/L (-2.0-3.0)
[2024-10-28] MEDS: VANCOMYCIN 750mg/150ml 150 ML IV SCH (12:00)
[2024-10-28 13:20] LABS: Chloride 107 mmol/L (98-107); Sodium 143 mmol/L (136-145)
[2024-10-28 13:21] LABS: Anion Gap 15 (5-15); Carbon Dioxide 21 mmol/L (20-31)
[2024-10-28 13:26] LABS: BUN/Creatinine Ratio 33.8 (10.0-20.0)
[2024-10-28 13:28] LABS: Blood Urea Nitrogen 27 mg/dL (9-23); Glucose 111 mg/dL (74-106)
[2024-10-28 13:48] LABS: Basophils # (auto) 0 10 ^3/uL (0-0.2); Basophils % (auto) 0.1 % (0.0-2.0); Eosinophils # (auto) 0 10 ^3/uL (0-0.8); Hematocrit 30.9 % (36.0-46.0); Hemoglobin 9.9 g/dL (12.2-16.2); Lymphocytes # (auto) 1.1 10 ^3/uL (0.4-5.4); Mean Corpuscular Hemoglobin 27.9 pg (28.0-32.0); Mean Corpuscular Hgb Conc. 32.1 g/dL (32.0-36.0); Mean Corpuscular Volume 86.7 fL (80.0-100.0); Monocytes # (auto) 0.5 10 ^3/uL (0-1.3); Monocytes % (auto) 3.4 % (0.0-12.0); Neutrophils # (auto) 12.1 10 ^3/uL (1.6-8.6); Neutrophils % (auto) 88.5 % (37.0-80.0); Nucleated Red Blood Cells % 0.1 %; Platelet Count (auto) 89 10^3/uL (140-450); Red Blood Cells 3.56 10^6/uL (4.0-5.20); Red Cell Distribution Width 16.7 % (11.8-14.3); White Blood Cell 13.6 10^3/uL (4.4-10.8)
[2024-10-28] MEDS: FUROSEMIDE 20 MG/2 ML VIAL IV SCH (14:45)
[2024-10-28] MEDS: POTASSIUM CHLORIDE 80 MEQ, LIDOCAINE 1% (LOCAL ANESTH.) 6 ML in SODIUM CHL 0.9% 500 ML IV ONE (16:21)
--- NOTE | 2024-10-28 16:41 | DVH ---
CHEST RADIOGRAPH Indication: Vent dependent Technique: Single frontal view of the chest was obtained COMPARISON: XY CHEST PORTABLE on DOS: 10/26/24, XY CHEST PORTABLE on DOS: 10/25/24 FINDINGS: Lines and Tubes: Tracheostomy. Median sternotomy. Lungs: Congestion Pleura: No effusion. No pneumothorax. Cardiomediastinal contours: Unremarkable Bones: Unremarkable IMPRESSION: No significant interval change.
--- NOTE | 2024-10-28 23:13 | DVHPN2 ---
Progress Note - Dictate Date Seen: Oct 28, 2024 Medical Necessity Reason Pt with a Central, PICC or Fol: Yes The following are medically ne: Doshi Catheter Reason for doshi catheter: Strict I&O Subjective Patient seen and examined at bedside. S/p trach. Transitioned to trach collar Overnight events reviewed. vital signs Vital Sign Date Time Temp Pulse Resp B/P (MAP) Pulse Ox O2 Delivery O2 Flow Rate FiO2 10/28/24 22:00 62 23 136/63 (87) 100 10/28/24 19:31 Trach Collar 10.0 10/28/24 19:31 40 40 10/28/24 16:00 98.5 98.5 Total Intake and Output 10/27/24 10/27/24 10/28/24 15:00 23:00 07:00 Intake Total 180 ml 940 ml Output Total 300 ml 1540 ml Balance -300 ml -1360 ml 940 ml medications Current Medications Medications Dose Ordered Sig/Kulwant Route Start Time Stop Time Status Last Admin Dose Admin Morphine Sulfate 1 mg Q1HP PRN IV 10/26/24 02:15 10/26/24 08:41 1 MG Lorazepam 1 mg Q1HP PRN IV 10/26/24 02:15 10/26/24 02:38 1 MG Bisacodyl 10 mg QHSP PRN TN 10/26/24 02:15 Sodium Biphosphate/ Sodium Phosphate 135 ml DAILYP PRN TN 10/26/24 02:15 Vancomycin HCl 0 ml @ 0 mls/hr UD IV 10/26/24 10:00 Piperacillin Sod/ Tazobactam Sod 100 ml @ 100 mls/hr Q8HR IV 10/26/24 10:00 10/28/24 22:17 100 MLS/HR Methylprednisolone Sodium Succinate 40 mg BID IV 10/26/24 10:00 10/28/24 22:17 40 MG Diagnostic Test (Pha) 1 strip IQ4HR 10/26/24 12:00 10/28/24 20:00 1 STRIP Insulin Human Regular IQ4HR SC 10/26/24 12:00 10/28/24 15:44 2 UNITS Dextrose 50 ml UD PRN IV 10/26/24 10:00 Sodium Chloride 1,000 ml @ 60 mls/hr [id number] IV 10/26/24 10:00 10/28/24 12:12 60 MLS/HR Al Hydrox/Mg Hydrox/Simethicone 30 ml Q6HP PRN PO 10/26/24 10:00 Docusate Sodium 100 mg BIDPRN PRN PO 10/26/24 10:00 Acetaminophen 650 mg Q6HP PRN PO 10/26/24 10:00 10/26/24 23:27 650 MG Temazepam 15 mg QHSP PRN PO 10/26/24 10:00 Acetaminophen/ Hydrocodone Bitart 1 tab Q4HP PRN PO 10/26/24 10:00 Ondansetron HCl 4 mg Q4HP PRN IV 10/26/24 10:00 10/26/24 17:33 4 MG Nitroglycerin 0.4 mg Q5MINP PRN SL 10/26/24 10:00 Albuterol 2.5 mg Q4HPRN PRN NEB 10/26/24 10:00 10/28/24 23:06 2.5 MG Ipratropium [place] 0.5 mg Q4HPRN PRN NEB 10/26/24 10:00 10/28/24 23:06 0.5 MG Sacubitril/ Valsartan 0.5 tab BID PO 10/26/24 22:00 10/28/24 22:17 0.5 TAB Spironolactone 12.5 mg DAILY PO 10/27/24 10:00 10/28/24 09:23 12.5 MG Amiodarone HCl 100 mg DAILY PO 10/27/24 10:00 10/28/24 09:23 100 MG Acetylcysteine 100 mg Q4HWA NEB 10/27/24 18:15 10/28/24 23:06 100 MG Vancomycin HCl 150 ml @ 150 mls/hr Q12H IV 10/28/24 12:00 Micafungin Sodium 100 mg/Sodium Chloride 100 ml @ 100 mls/hr DAILY IV 10/28/24 10:00 10/28/24 10:00 100 MLS/HR Enteral Nutritional Formula 1,000 ml 45ML/HR GT 10/28/24 12:15 Furosemide 20 mg BIDD IV 10/28/24 14:45 10/28/24 18:30 20 MG objective Gen.: Patient lying in bed in medical ICU. S/p trach. Transitioned to trach collar Head: Normocephalic, atraumatic. Eyes: PERRLA. Ears: Normal external anatomy. Throat: Endotracheal tube and orogastric tube in place. Neck: Trach in place Chest: Transmitted breath sounds bilaterally. Decreased air entry bilaterally. No wheezing. Bibasilar crackles. Cardiovascular: Positive S1, positive S2. Regular rate and rhythm. Abdomen: Positive bowel sounds in all 4 quadrants. Soft, nontender, nondistended. : Doshi in place. Normal external genitalia. Rectal: Deferred. Skin: Warm, dry. Intact. Extremities: 2+ radial pulses bilaterally. No lower extremity edema. Neuro: Sedated. laboratory and microbiology Laboratory Tests 10/28/24 13:36 10/28/24 09:19 Test 10/28/24 09:19 Range/Units Serum Glucose 111 H 74-106 mg/dL Assessment/Plan Impression: Acute hypoxic respiratory failure On mechanical ventilator CHF Bradycardia Status post tracheostomy Sepsis Mucus plugging of the right upper lobe Events: Transitioned to trach collar Recommend consult w/ Speech/Swallow for Passy[place] valve. DME for Passy-Marie valve. Trach care Continue bronchodilators Pulmonary toileting. Labs and imaging reviewed. Rest of plan as noted below. Plan: Transitioned to trach collar Place on full vent support if any distress. s/p intubation on mechanical ventilator Performed bedside bronchoscopy to clear suspected mucus plugs. There was copious mucus plugs in the right upper lobe in our one through our three. Updated family at bedside in regards to findings. See separate procedure note for full details. CXR image and report reviewed. Trach in place. Hypoinflation. Patchy opacification of the right mid lung zone and left mid lung zone, possible pneumonitis. No pleural effusion or pneumothorax. ABG reviewed. Alkalemia. On assist control with a respiratory rate of 18, tidal volume 450, peep of five, FiO2 of 40%. Titrate FIO2 to keep O2 saturation above 92%. VAP bundle Daily ABG and CXR while intubated. Continue antibiotics. F/u cultures. WBC count trending down. Monitor renal function. Monitor electrolytes. Supplement as necessary. Monitor hemoglobin Nutritional support. Accucheks, ISS. Obtain social work/case management consultation to obtain a Passy Marie valve for patient. GI/DVT prophylaxis. Prognosis: Poor given multiple comorbidities. Rest of plan per hospitalist and other consultants. Thank you Dr. Rosario Dawson for allowing me to participate in this patient's care. Further recommendations will depend on patient's clinical course. Please do not hesitate to contact me if you have any questions or concerns. This medical document was created using an electronic medical record system with [employer] system. Although this document has been carefully reviewed, there may still be some phonetic and typographical errors. These areas are purely typographical due to imperfections of the software programs, and do not reflect any compromise in the patient's medical care. Dietary Evaluation Review Comments: 1) Consider Glucerna 1.5@ 40ml/hr x24 hrs goal rate as tolerated to meet estimated needs 2) Continue current plan of care Expected Outcomes/Goals: F/U in 2-3 days Plan discussed with: Other (RN February) CC Plasma Assessment Blood Product Administration S: [id number] BASSAM RG MD Oct 28, 2024 23:13
[2024-10-29] VITALS (14 sets, daily range): BP systolic 145; BP diastolic 63; PULSE 56–101; RESP 18–24; O2SAT 93–100
[2024-10-29] MEDS: Vital AF 1.2 Cal 1 liter bottle GT SCH (02:48)
[2024-10-29 04:21] LABS: Urine Bacteria None Seen /hpf (None Seen)
[2024-10-29 04:41] LABS: Urine Blood Negative /uL (Negative); Urine Clarity Clear (Clear); Urine Color Light-Yellow (Yellow); Urine Protein, UAD 1+ (Negative); Urine Specific Gravity 1.011 (1.001-1.035); Urine Urobilinogen Normal (Negative); Urine WBC <1 /hpf (0 - 5)
[2024-10-29 05:14] LABS: Basophils # (auto) 0 10 ^3/uL (0-0.2); Basophils % (auto) 0.1 % (0.0-2.0); Eosinophils # (auto) 0 10 ^3/uL (0-0.8); Hemoglobin 10.4 g/dL (12.2-16.2); Lymphocytes # (auto) 1.1 10 ^3/uL (0.4-5.4); Mean Corpuscular Hemoglobin 28.3 pg (28.0-32.0); Mean Corpuscular Hgb Conc. 32.4 g/dL (32.0-36.0); Mean Corpuscular Volume 87.2 fL (80.0-100.0); Monocytes # (auto) 0.2 10 ^3/uL (0-1.3); Monocytes % (auto) 2.1 % (0.0-12.0); Neutrophils # (auto) 8.9 10 ^3/uL (1.6-8.6); Neutrophils % (auto) 86.8 % (37.0-80.0); Nucleated Red Blood Cells % 0.1 %; Platelet Count (auto) 89 10^3/uL (140-450); Red Blood Cells 3.67 10^6/uL (4.0-5.20); White Blood Cell 10.2 10^3/uL (4.4-10.8)
--- NOTE | 2024-10-29 07:42 | DVHPN2 ---
Reviewed: Care Plan, H&P, Labs, Medications, Previous Orders, Radiology Changes from previous H/P or p: No Changes General: Per HPI Objective Vitals Vital Signs Date Time Temp Pulse Resp B/P (MAP) Pulse Ox O2 Delivery O2 Flow Rate FiO2 10/29/24 06:37 63 20 99 10/29/24 06:31 Trach Collar 10 40 Cool Aerosol 40 10/29/24 06:19 138/58 (84) 10/29/24 00:00 97.8 97.8 Intake/Output Intake and Output 10/29/24 07:00 Intake Total 1818.25 ml Output Total 1000 ml Balance 818.25 ml IV Total 1818.25 ml Output Urine Total 1000 ml Medications Current Medications Medications Dose Ordered Sig/Kulwant Route Start Time Stop Time Status Last Admin Dose Admin Morphine Sulfate 1 mg Q1HP PRN IV 10/26/24 02:15 10/26/24 08:41 1 MG Lorazepam 1 mg Q1HP PRN IV 10/26/24 02:15 10/26/24 02:38 1 MG Bisacodyl 10 mg QHSP PRN ND 10/26/24 02:15 Sodium Biphosphate/ Sodium Phosphate 135 ml DAILYP PRN ND 10/26/24 02:15 Vancomycin HCl 0 ml @ 0 mls/hr UD IV 10/26/24 10:00 Piperacillin Sod/ Tazobactam Sod 100 ml @ 100 mls/hr Q8HR IV 10/26/24 10:00 10/29/24 05:48 100 MLS/HR Methylprednisolone Sodium Succinate 40 mg BID IV 10/26/24 10:00 10/28/24 22:17 40 MG Diagnostic Test (Pha) 1 strip IQ4HR 10/26/24 12:00 10/29/24 03:51 1 STRIP Insulin Human Regular IQ4HR SC 10/26/24 12:00 10/28/24 15:44 2 UNITS Dextrose 50 ml UD PRN IV 10/26/24 10:00 Sodium Chloride 1,000 ml @ 60 mls/hr [id number] IV 10/26/24 10:00 10/28/24 12:12 60 MLS/HR Al Hydrox/Mg Hydrox/Simethicone 30 ml Q6HP PRN PO 10/26/24 10:00 Docusate Sodium 100 mg BIDPRN PRN PO 10/26/24 10:00 Acetaminophen 650 mg Q6HP PRN PO 10/26/24 10:00 10/26/24 23:27 650 MG Temazepam 15 mg QHSP PRN PO 10/26/24 10:00 Acetaminophen/ Hydrocodone Bitart 1 tab Q4HP PRN PO 10/26/24 10:00 Ondansetron HCl 4 mg Q4HP PRN IV 10/26/24 10:00 10/26/24 17:33 4 MG Nitroglycerin 0.4 mg Q5MINP PRN SL 10/26/24 10:00 Albuterol 2.5 mg Q4HPRN PRN NEB 10/26/24 10:00 10/29/24 06:31 2.5 MG Ipratropium [place] 0.5 mg Q4HPRN PRN NEB 10/26/24 10:00 10/29/24 06:31 0.5 MG Sacubitril/ Valsartan 0.5 tab BID PO 10/26/24 22:00 10/28/24 22:17 0.5 TAB Spironolactone 12.5 mg DAILY PO 10/27/24 10:00 10/28/24 09:23 12.5 MG Amiodarone HCl 100 mg DAILY PO 10/27/24 10:00 10/28/24 09:23 100 MG Acetylcysteine 100 mg Q4HWA NEB 10/27/24 18:15 10/29/24 06:31 100 MG Vancomycin HCl 150 ml @ 150 mls/hr Q12H IV 10/28/24 12:00 10/29/24 00:31 150 MLS/HR Micafungin Sodium 100 mg/Sodium Chloride 100 ml @ 100 mls/hr DAILY IV 10/28/24 10:00 10/28/24 10:00 100 MLS/HR Enteral Nutritional Formula 1,000 ml 45ML/HR GT 10/28/24 12:15 10/29/24 02:48 1,000 ML Furosemide 20 mg BIDD IV 10/28/24 14:45 10/29/24 05:48 20 MG Laboratory Results Laboratory Tests 10/28/24 09:19 10/29/24 04:45 Chemistry Test 10/28/24 09:19 Calcium Level 9.0 mg/dL (8.7-10.4) Magnesium Level 2.0 mg/dL (1.6-2.6) Urinalysis Test 10/25/24 21:40 10/29/24 04:19 Urine Yeast (Budding) Occasional /hpf (None Urine Color Light-yellow (Yellow) Urine Clarity Clear (Clear) Urine pH 7.0 (5.0-9.0) Urine Specific [place] 1.011 (1.001-1.035) Urine Protein 1+ (Negative) H Urine Ketones Negative (Negative) Urine Blood Negative /uL (Negative) Urine Nitrite Negative (Negative) Urine Bilirubin Negative (Negative) Urine Urobilinogen Normal mg/dL (Negative) Urine Leukocyte Esterase Negative /uL (Negative) Urine RBC <1 /hpf (0 - 4) Urine WBC <1 /hpf (0 - 5) Urine Squamous Epithelial Cells None seen /hpf (<5) Urine Bacteria None seen /hpf (None Seen) Urine Glucose Normal mg/dL (Normal) Blood Gas Results Test 10/28/24 11:20 Arterial Blood pH 7.518 (7.350-7.450) FiO2 % 35.0 Microbiology Microbiology Date/Time Source Procedure Growth Status 10/26/24 09:42 Sputum Gram Stain - Final Resulted 10/26/24 09:42 Respiratory Culture - Preliminary Enterobacter aerogenes Resulted 10/25/24 21:40 Voided Urine Urine Culture - Preliminary Yeast, not Isabel albicans Resulted 10/25/24 21:21 Trachea Gram Stain - Final Complete 10/25/24 21:21 Respiratory Culture - Final Stenotrophomonas maltophilia Enterobacter aerogenes Complete 10/25/24 21:10 Blood Blood Culture - Final Staphylococcus epidermidis Complete Labs and/or images reviewed: Labs reviewed by me, Image(s) reviewed by me Assessment/Plan Assessment/Plan Sick sinus syndrome likely hypoxia induced Septic shock unknown etiology: Blood cultures contaminated, DC vancomycin and Zosyn, sputum cultures growing Enterobacter aerogenous, start Levaquin Acute on chronic decompensated HFrEF, NYHA Class III ejection fraction 40 % cardiology consult by dr Keenan appreciated 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 Ordaz on 40 percent FiO2 speech evaluation consult placed for [place] valve.p er Dr. Ordaz Status post bronchoscopy with lavage of the right middle bronchus by Dr. Ordaz Yeast not Isabel in the sputum: Micafungin IV NSTEMI, likely type 2 secondary to above Severe mitral stenosis status post balloon valvuloplasty s/p bioprosthetic MVR with CTS (2013) NYA closure and primary ASD closure with CTS (11/20/23) [employer] CVA (12/2018 & 03/2020) Prediabetes, newly diagnosed Hx UGIB s/p transfusion Acute on chronic anemia Two month stay at [facility] discharged two days back home and the patient was brought to the ER General condition Very poor Time spent 65 minutes Discussed with the patient's daughter and power of metallurgical engineering teacher Georgette [phone] at bedside and she requested the patient be placed on DNR Orders placed Plan discussed with: Patient My Orders Orders - SHAILESH DING MD Procedure Category Date Status Time Micafungin Sodium PHA 10/28/24 In Process (Mycamine) 10:00 Nutritional PHA 10/28/24 In Process Supplements (Vital Af 12:15 * Surgical Consult CONS 10/28/[address] 10/29/24 Verified 07:37 Date of Service: Oct 29, 2024 Billing Provider: SHAIELSH DING MD Common Visit Codes: [id number] CARE 30-74 MIN SHAILESH DING MD Oct 29, 2024 07:42
[2024-10-29] MEDS ORDERED: levoFLOXacin 500MG 100 ML IV SCH (10:00)
[2024-10-29] MEDS: POTASSIUM EFFERVESENT TAB 25 MEQ GT ONE (19:19)
[2024-10-29 22:04] LABS: Albumin 3.9 g/dL (3.2-4.8); Alkaline Phosphatase 164 U/L (46-116); Anion Gap 10 (5-15); Aspartate Aminotransferase 17 U/L (13-40); BUN/Creatinine Ratio 36.9 (10.0-20.0); Bilirubin, Total 0.8 mg/dL (0.2-1.0); Blood Urea Nitrogen 24 mg/dL (9-23); Calcium 9.4 mg/dL (8.7-10.4); Carbon Dioxide 24 mmol/L (20-31); Chloride 105 mmol/L (98-107); Glucose 128 mg/dL (74-106); Potassium 5.1 mmol/L (3.5-5.1); Sodium 139 mmol/L (136-145); Total Protein 6.4 g/dL (5.7-8.2)
[2024-10-29 22:05] LABS: Alanine Aminotransferase 44 U/L (7-40)
--- NOTE | 2024-10-29 23:32 | DVHPN2 ---
Progress Note - Dictate Date Seen: Oct 29, 2024 Medical Necessity Reason Pt with a Central, PICC or Fol: Yes The following are medically ne: Doshi Catheter Reason for doshi catheter: Strict I&O Subjective Patient seen and examined at bedside. S/p trach. Transitioned to trach collar Overnight events reviewed. vital signs Vital Sign Date Time Temp Pulse Resp B/P (MAP) Pulse Ox O2 Delivery O2 Flow Rate FiO2 10/29/24 23:10 70 18 130/52 (78) 97 10/29/24 22:31 Trach Collar 8 30 30 10/29/24 19:30 98.3 98.3 Total Intake and Output 10/28/24 10/28/24 10/29/24 15:00 23:00 07:00 Intake Total 580 ml 340 ml 898.25 ml Output Total 1000 ml Balance 580 ml -660 ml 898.25 ml medications Current Medications Medications Dose Ordered Sig/Kulwant Route Start Time Stop Time Status Last Admin Dose Admin Morphine Sulfate 1 mg Q1HP PRN IV 10/26/24 02:15 10/26/24 08:41 1 MG Lorazepam 1 mg Q1HP PRN IV 10/26/24 02:15 10/29/24 21:41 1 MG Bisacodyl 10 mg QHSP PRN [place] 10/26/24 02:15 Sodium Biphosphate/ Sodium Phosphate 135 ml DAILYP PRN [place] 10/26/24 02:15 Methylprednisolone Sodium Succinate 40 mg BID IV 10/26/24 10:00 10/29/24 21:41 40 MG Diagnostic Test (Pha) 1 strip IQ4HR 10/26/24 12:00 10/29/24 20:17 1 STRIP Insulin Human Regular IQ4HR SC 10/26/24 12:00 10/29/24 20:22 2 UNITS Dextrose 50 ml UD PRN IV 10/26/24 10:00 Sodium Chloride 1,000 ml @ 60 mls/hr [id number] IV 10/26/24 10:00 10/29/24 09:00 60 MLS/HR Al Hydrox/Mg Hydrox/Simethicone 30 ml Q6HP PRN PO 10/26/24 10:00 Docusate Sodium 100 mg BIDPRN PRN PO 10/26/24 10:00 Acetaminophen 650 mg Q6HP PRN PO 10/26/24 10:00 10/26/24 23:27 650 MG Temazepam 15 mg QHSP PRN PO 10/26/24 10:00 Acetaminophen/ Hydrocodone Bitart 1 tab Q4HP PRN PO 10/26/24 10:00 Ondansetron HCl 4 mg Q4HP PRN IV 10/26/24 10:00 10/26/24 17:33 4 MG Nitroglycerin 0.4 mg Q5MINP PRN SL 10/26/24 10:00 Albuterol 2.5 mg Q4HPRN PRN NEB 10/26/24 10:00 10/29/24 22:32 2.5 MG Ipratropium [place] 0.5 mg Q4HPRN PRN NEB 10/26/24 10:00 10/29/24 22:32 0.5 MG Sacubitril/ Valsartan 0.5 tab BID PO 10/26/24 22:00 10/29/24 21:40 0.5 TAB Spironolactone 12.5 mg DAILY PO 10/27/24 10:00 10/29/24 10:38 12.5 MG Amiodarone HCl 100 mg DAILY PO 10/27/24 10:00 10/29/24 10:36 100 MG Acetylcysteine 100 mg Q4HWA NEB 10/27/24 18:15 10/29/24 22:32 100 MG Micafungin Sodium 100 mg/Sodium Chloride 100 ml @ 100 mls/hr DAILY IV 10/28/24 10:00 10/29/24 09:48 100 MLS/HR Enteral Nutritional Formula 1,000 ml 45ML/HR GT 10/28/24 12:15 10/29/24 02:48 1,000 ML Furosemide 20 mg BIDD IV 10/28/24 14:45 10/29/24 05:48 20 MG Levofloxacin/ Dextrose 100 ml @ 100 mls/hr DAILY IV 10/29/24 10:00 Hold objective Gen.: Patient lying in bed in medical ICU. S/p trach. Transitioned to trach collar Head: Normocephalic, atraumatic. Eyes: PERRLA. Ears: Normal external anatomy. Throat: Endotracheal tube and orogastric tube in place. Neck: Trach in place Chest: Transmitted breath sounds bilaterally. Decreased air entry bilaterally. No wheezing. Bibasilar crackles. Cardiovascular: Positive S1, positive S2. Regular rate and rhythm. Abdomen: Positive bowel sounds in all 4 quadrants. Soft, nontender, nondistended. : Doshi in place. Normal external genitalia. Rectal: Deferred. Skin: Warm, dry. Intact. Extremities: 2+ radial pulses bilaterally. No lower extremity edema. Neuro: Sedated. laboratory and microbiology Laboratory Tests 10/29/24 21:22 10/29/24 04:45 Test 10/29/24 21:22 Range/Units Serum Glucose 128 H 74-106 mg/dL Assessment/Plan Impression: Acute hypoxic respiratory failure On mechanical ventilator CHF Bradycardia Status post tracheostomy Sepsis Mucus plugging of the right upper lobe Events: Transitioned to trach collar Recommend consult w/ Speech/Swallow for Passy-Marie valve. DME for Passy-Marie valve. Trach care Pulmonary toileting. Continue abx Continue bronchodilators HOB elevation Aspiration precautions. Tube feeds for nutritional support. Labs and imaging reviewed. Rest of plan as noted below. Plan: Transitioned to trach collar Place on full vent support if any distress. s/p intubation on mechanical ventilator Performed bedside bronchoscopy to clear suspected mucus plugs. There was copious mucus plugs in the right upper lobe in our one through our three. Updated family at bedside in regards to findings. See separate procedure note for full details. CXR image and report reviewed. Trach in place. Hypoinflation. Patchy opacification of the right mid lung zone and left mid lung zone, possible pneumonitis. No pleural effusion or pneumothorax. ABG reviewed. Alkalemia. On assist control with a respiratory rate of 18, tidal volume 450, peep of five, FiO2 of 40%. Titrate FIO2 to keep O2 saturation above 92%. VAP bundle Daily ABG and CXR while intubated. Continue antibiotics. F/u cultures. WBC count trending down. Monitor renal function. Monitor electrolytes. Supplement as necessary. Monitor hemoglobin Nutritional support. Accucheks, ISS. Obtain social work/case management consultation to obtain a Passy [place] valve for patient. GI/DVT prophylaxis. Prognosis: Poor given multiple comorbidities. Rest of plan per hospitalist and other consultants. Thank you Dr. Rosario Dawson for allowing me to participate in this patient's care. Further recommendations will depend on patient's clinical course. Please do not hesitate to contact me if you have any questions or concerns. This medical document was created using an electronic medical record system with [employer] dictation system. Although this document has been carefully reviewed, there may still be some phonetic and typographical errors. These areas are purely typographical due to imperfections of the software programs, and do not reflect any compromise in the patient's medical care. Dietary Evaluation Review Comments: 1) Consider Glucerna 1.5@ 40ml/hr x24 hrs goal rate as tolerated to meet estimated needs 2) Continue current plan of care Expected Outcomes/Goals: F/U in 2-3 days Plan discussed with: Patient, Other (RN) CC Plasma Assessment Blood Product Administration S: [id number] BASSAM RG MD Oct 29, 2024 23:32
[2024-10-30] VITALS (12 sets, daily range): PULSE 60–86; RESP 16–25; O2SAT 97–100
--- NOTE | 2024-10-30 16:02 | DVHPN2 ---
Subjective Patient denies any symptoms at this time. Reviewed: Care Plan, H&P, Labs, Medications, Previous Orders, Radiology Changes from previous H/P or p: No Changes General: Per HPI Objective Vitals Vital Signs Date Time Temp Pulse Resp B/P (MAP) Pulse Ox O2 Delivery O2 Flow Rate FiO2 10/30/24 14:56 69 22 100 10/30/24 14:50 Trach Collar 8.0 10/30/24 14:50 N/A 10/30/24 14:00 133/61 (85) 10/29/24 19:30 98.3 98.3 Intake/Output Intake and Output 10/30/24 07:00 Intake Total 1180 ml Output Total 620 ml Balance 560 ml IV Total 1180 ml Output Urine Total 620 ml General Appearance: Alert, Oriented X3, Cooperative, No acute distress HEENT: Atraumatic, PERRLA, Other (Tracheostomy) Lungs: Other (Decreased breath sounds in bases. Patient on trach collar at 30% FiO2) Cardiovascular: Normal S1, Normal S2, Other (ST depression noted) Genitourinary: No Apparent Abnormalities Musculoskeletal: Normal sensory function, Normal motor function Neuro: Normal gait, Normal speech Psych/Mental Status: Mental status NL, Mood NL Medications Current Medications Medications Dose Ordered Sig/Kulwant Route Start Time Stop Time Status Last Admin Dose Admin Morphine Sulfate 1 mg Q1HP PRN IV 10/26/24 02:15 10/26/24 08:41 1 MG Lorazepam 1 mg Q1HP PRN IV 10/26/24 02:15 10/29/24 21:41 1 MG Bisacodyl 10 mg QHSP PRN [place] 10/26/24 02:15 Sodium Biphosphate/ Sodium Phosphate 135 ml DAILYP PRN [place] 10/26/24 02:15 Methylprednisolone Sodium Succinate 40 mg BID IV 10/26/24 10:00 10/30/24 12:21 40 MG Diagnostic Test (Pha) 1 strip IQ4HR 10/26/24 12:00 10/30/24 12:21 1 STRIP Insulin Human Regular IQ4HR SC 10/26/24 12:00 10/30/24 08:17 2 UNITS Dextrose 50 ml UD PRN IV 10/26/24 10:00 Sodium Chloride 1,000 ml @ 60 mls/hr [id number] IV 10/26/24 10:00 10/30/24 14:28 60 MLS/HR Al Hydrox/Mg Hydrox/Simethicone 30 ml Q6HP PRN PO 10/26/24 10:00 Docusate Sodium 100 mg BIDPRN PRN PO 10/26/24 10:00 Acetaminophen 650 mg Q6HP PRN PO 10/26/24 10:00 10/26/24 23:27 650 MG Temazepam 15 mg QHSP PRN PO 10/26/24 10:00 Acetaminophen/ Hydrocodone Bitart 1 tab Q4HP PRN PO 10/26/24 10:00 Ondansetron HCl 4 mg Q4HP PRN IV 10/26/24 10:00 10/26/24 17:33 4 MG Nitroglycerin 0.4 mg Q5MINP PRN SL 10/26/24 10:00 Albuterol 2.5 mg Q4HPRN PRN NEB 10/26/24 10:00 10/30/24 14:50 2.5 MG Ipratropium [place] 0.5 mg Q4HPRN PRN NEB 10/26/24 10:00 10/30/24 06:50 0.5 MG Sacubitril/ Valsartan 0.5 tab BID PO 10/26/24 22:00 10/30/24 12:05 0.5 TAB Spironolactone 12.5 mg DAILY PO 10/27/24 10:00 10/30/24 12:07 12.5 MG Amiodarone HCl 100 mg DAILY PO 10/27/24 10:00 10/30/24 12:07 100 MG Acetylcysteine 100 mg Q4HWA NEB 10/27/24 18:15 10/30/24 14:49 100 MG Micafungin Sodium 100 mg/Sodium Chloride 100 ml @ 100 mls/hr DAILY IV 10/28/24 10:00 10/30/24 11:47 100 MLS/HR Enteral Nutritional Formula 1,000 ml 45ML/HR GT 10/28/24 12:15 10/29/24 02:48 1,000 ML Furosemide 20 mg BIDD IV 10/28/24 14:45 10/30/24 05:37 20 MG Levofloxacin/ Dextrose 100 ml @ 100 mls/hr DAILY IV 10/29/24 10:00 Hold Trimethoprim/ Sulfamethoxazole 10 ml/Dextrose 260 ml @ 173.333 mls/hr Q8HR IV 10/30/24 22:00 UNV Laboratory Results Laboratory Tests 10/29/24 04:45 10/29/24 21:22 Chemistry Test 10/29/24 21:22 Albumin 3.9 g/dL (3.2-4.8) Calcium Level 9.4 mg/dL (8.7-10.4) Total Protein 6.4 g/dL (5.7-8.2) LFT Test 10/29/24 21:22 Alanine Aminotransferase (ALT) 44 U/L (7-40) H Alkaline Phosphatase 164 U/L (46-116) H Aspartate Amino Transferase (AST) 17 U/L (13-40) Total Bilirubin 0.8 mg/dL (0.2-1.0) Urinalysis Test 10/25/24 21:40 10/29/24 04:19 Urine Yeast (Budding) Occasional /hpf (None Urine Color Light-yellow (Yellow) Urine Clarity Clear (Clear) Urine pH 7.0 (5.0-9.0) Urine Specific [place] 1.011 (1.001-1.035) Urine Protein 1+ (Negative) H Urine Ketones Negative (Negative) Urine Blood Negative /uL (Negative) Urine Nitrite Negative (Negative) Urine Bilirubin Negative (Negative) Urine Urobilinogen Normal mg/dL (Negative) Urine Leukocyte Esterase Negative /uL (Negative) Urine RBC <1 /hpf (0 - 4) Urine WBC <1 /hpf (0 - 5) Urine Squamous Epithelial Cells None seen /hpf (<5) Urine Bacteria None seen /hpf (None Seen) Urine Glucose Normal mg/dL (Normal) Microbiology Microbiology Date/Time Source Procedure Growth Status 10/26/24 09:42 Sputum Gram Stain - Final Complete 10/26/24 09:42 Respiratory Culture - Final Stenotrophomonas maltophilia Enterobacter aerogenes Complete 10/25/24 21:40 Voided Urine Urine Culture - Final Yeast, not Isabel albicans Complete 10/25/24 21:21 Trachea Gram Stain - Final Complete 10/25/24 21:21 Respiratory Culture - Final Stenotrophomonas maltophilia Enterobacter aerogenes Complete 10/25/24 21:10 Blood Blood Culture - Final Staphylococcus epidermidis Complete Labs and/or images reviewed: Labs reviewed by me, Image(s) reviewed by me Assessment/Plan Assessment/Plan Impression: -acute on chronic hypoxic respiratory failure -thyroid cancer, status post tracheostomy placement -PEG tube placement -acute on chronic systolic heart failure with ejection fraction 40% -probable hospital-acquired pneumonia with stenotrophomonas maltophilia and Enterobacter aerogenes -sepsis -NSTEMI, type 2 per Cardiology -sick sinus syndrome secondary to hypoxia Plan: Pulmonary consultation: Patient was on ventilator. Patient had bronchoscopy and has been weaned off of ventilator. Currently on trach collar at 30% FiO2 Change antibiotic therapy to micafungin and Bactrim Cardiology consultation: Recommendations reviewed. Repeat troponin will be ordered given patient has persistent ST depressions Continue tube feeding O2 supplementation to keep saturation greater than 92% Speech therapy to evaluate for Pass[place] valve Repeat labs in a.m. Transfer patient to telemetry floor with continuous pulse oximetry Plan of care discussed with patient and son-in-law who was bedside. All questions answered. Critical care time spent with patient discussing and formulating plan of care: 40 minutes. This does not include time spent performing procedures. Total time spent with patient and family regarding advance care plannin minutes. This medical document was created using an electronic medical record system with [employer]3 dictation system. Although this document has been carefully reviewed, there may still be some phonetic and typographical errors. These areas are purely typographical due to imperfections of the software programs, and do not reflect any compromise in the patient's medical care. Plan discussed with: Patient, Other (RN) My Orders Orders - SUNNY GOLDEN NP Procedure Category Date Status Time Speech Request ST 10/30/24 Transmitted 15:04 Sulfameth-Trimeth PHA 10/30/24 Logged 80/16mg-Ml (Bactrim) 22:00 Date of Service: Oct 30, 2024 Billing Provider: SUNNY GOLDEN NP Common Visit Codes: [id number] CARE 30-74 MIN Secondary Visit Codes: [id number] CARE PLAN 30 MINUTES SUNNY GOLDEN NP Oct 30, 2024 16:02
[2024-10-30] MEDS ORDERED: SULFAMETH-TRIMETH 80/16MG-ML 10 ML in D5W 5% 250 ML IV SCH (22:00)
[2024-10-30] MEDS ORDERED: SULFAMETH-TRIMETH 80/16MG-ML 15 ML in D5W 5% 500 ML IV SCH (22:00)
[2024-10-30] MEDS: SULFAMETH-TRIMETH 80/16MG-ML 15 ML in D5W 5% 250 ML IV SCH (23:51)
[2024-10-31] VITALS (12 sets, daily range): BP systolic 97; BP diastolic 55; PULSE 66–73; RESP 13–22; O2SAT 95–100
[2024-10-31] MEDS: methylPREDNISolone SOD SUCC 40 MG/ML VL IV SCH (09:49)
[2024-10-31 12:21] LABS: Basophils # (auto) 0.1 10 ^3/uL (0-0.2); Basophils % (auto) 0.4 % (0.0-2.0); Eosinophils # (auto) 0 10 ^3/uL (0-0.8); Eosinophils % (auto) 0.1 % (0.0-7.0); Hematocrit 42.4 % (36.0-46.0); Hemoglobin 13.7 g/dL (12.2-16.2); Lymphocytes # (auto) 2.2 10 ^3/uL (0.4-5.4); Lymphocytes % (auto) 14.2 % (10.0-50.0); Mean Corpuscular Hemoglobin 28.6 pg (28.0-32.0); Mean Corpuscular Hgb Conc. 32.3 g/dL (32.0-36.0); Mean Corpuscular Volume 88.5 fL (80.0-100.0); Monocytes # (auto) 0.7 10 ^3/uL (0-1.3); Monocytes % (auto) 4.8 % (0.0-12.0); Neutrophils # (auto) 12.3 10 ^3/uL (1.6-8.6); Neutrophils % (auto) 80.5 % (37.0-80.0); Nucleated Red Blood Cells % 0.1 %; Platelet Count (auto) 122 10^3/uL (140-450); Red Blood Cells 4.79 10^6/uL (4.0-5.20); Red Cell Distribution Width 16.8 % (11.8-14.3); White Blood Cell 15.3 10^3/uL (4.4-10.8)
[2024-10-31 12:23] LABS: Chloride 101 mmol/L (98-107); Sodium 135 mmol/L (136-145)
[2024-10-31 12:24] LABS: Anion Gap 10 (5-15); Calcium 9.7 mg/dL (8.7-10.4); Carbon Dioxide 24 mmol/L (20-31)
[2024-10-31 12:29] LABS: BUN/Creatinine Ratio 28.6 (10.0-20.0); Blood Urea Nitrogen 24 mg/dL (9-23); Glucose 120 mg/dL (74-106)
--- NOTE | 2024-10-31 15:35 | DVHPN2 ---
Subjective Patient denies any symptoms at this time. Reviewed: Care Plan, H&P, Labs, Medications, Previous Orders, Radiology Changes from previous H/P or p: No Changes General: Per HPI Objective Vitals Vital Signs Date Time Temp Pulse Resp B/P (MAP) Pulse Ox O2 Delivery O2 Flow Rate FiO2 10/31/24 13:51 71 20 95 10/31/24 13:45 Trach Collar 7.0 10/31/24 13:45 30 30 10/31/24 12:00 127/58 (81) 10/30/24 20:00 98.6 98.6 Intake/Output Intake and Output 10/31/24 07:00 Intake Total 340 ml Output Total 850 ml Balance -510 ml IV Total 340 ml Output Urine Total 850 ml General Appearance: Alert, Oriented X3, Cooperative, No acute distress HEENT: Atraumatic, PERRLA, Other (Tracheostomy) Lungs: Normal air movement, Other (Decreased breath sounds in bases. Patient on trach collar at 30% FiO2) Cardiovascular: Normal S1, Normal S2, Other (ST depression noted) Genitourinary: No Apparent Abnormalities Musculoskeletal: Normal sensory function, Normal motor function Neuro: Normal gait, Normal speech Psych/Mental Status: Mental status NL, Mood NL Medications Current Medications Medications Dose Ordered Sig/Kulwant Route Start Time Stop Time Status Last Admin Dose Admin Morphine Sulfate 1 mg Q1HP PRN IV 10/26/24 02:15 10/26/24 08:41 1 MG Lorazepam 1 mg Q1HP PRN IV 10/26/24 02:15 10/29/24 21:41 1 MG Bisacodyl 10 mg QHSP PRN [place] 10/26/24 02:15 Sodium Biphosphate/ Sodium Phosphate 135 ml DAILYP PRN [place] 10/26/24 02:15 Diagnostic Test (Pha) 1 strip IQ4HR 10/26/24 12:00 10/31/24 12:22 1 STRIP Insulin Human Regular IQ4HR SC 10/26/24 12:00 10/31/24 00:54 2 UNITS Dextrose 50 ml UD PRN IV 10/26/24 10:00 Sodium Chloride 1,000 ml @ 60 mls/hr [id number] IV 10/26/24 10:00 10/30/24 14:28 60 MLS/HR Al Hydrox/Mg Hydrox/Simethicone 30 ml Q6HP PRN PO 10/26/24 10:00 Docusate Sodium 100 mg BIDPRN PRN PO 10/26/24 10:00 Acetaminophen 650 mg Q6HP PRN PO 10/26/24 10:00 10/26/24 23:27 650 MG Temazepam 15 mg QHSP PRN PO 10/26/24 10:00 Acetaminophen/ Hydrocodone Bitart 1 tab Q4HP PRN PO 10/26/24 10:00 Ondansetron HCl 4 mg Q4HP PRN IV 10/26/24 10:00 10/26/24 17:33 4 MG Nitroglycerin 0.4 mg Q5MINP PRN SL 10/26/24 10:00 Albuterol 2.5 mg Q4HPRN PRN NEB 10/26/24 10:00 10/31/24 13:44 2.5 MG Ipratropium [place] 0.5 mg Q4HPRN PRN NEB 10/26/24 10:00 10/31/24 13:44 0.5 MG Sacubitril/ Valsartan 0.5 tab BID PO 10/26/24 22:00 10/31/24 09:50 0.5 TAB Spironolactone 12.5 mg DAILY PO 10/27/24 10:00 10/31/24 09:50 12.5 MG Amiodarone HCl 100 mg DAILY PO 10/27/24 10:00 10/31/24 09:49 100 MG Acetylcysteine 100 mg Q4HWA NEB 10/27/24 18:15 10/31/24 13:45 100 MG Micafungin Sodium 100 mg/Sodium Chloride 100 ml @ 100 mls/hr DAILY IV 10/28/24 10:00 10/31/24 09:28 100 MLS/HR Enteral Nutritional Formula 1,000 ml 45ML/HR GT 10/28/24 12:15 10/30/24 17:45 1,000 ML Furosemide 20 mg BIDD IV 10/28/24 14:45 10/31/24 06:52 20 MG Methylprednisolone Sodium Succinate 40 mg DAILY IV 10/31/24 10:00 10/31/24 09:49 40 MG Trimethoprim/ Sulfamethoxazole 15 ml/Dextrose 515 ml @ 343.333 mls/hr Q8HR IV 10/30/24 22:00 Hold Trimethoprim/ Sulfamethoxazole 15 ml/Dextrose 265 ml @ 176.667 mls/hr Q8HR IV 10/30/24 22:00 10/31/24 14:11 176.667 MLS/HR Laboratory Results Laboratory Tests 10/31/24 11:30 Chemistry Test 10/31/24 11:30 Calcium Level 9.7 mg/dL (8.7-10.4) Urinalysis Test 10/25/24 21:40 10/29/24 04:19 Urine Yeast (Budding) Occasional /hpf (None Urine Color Light-yellow (Yellow) Urine Clarity Clear (Clear) Urine pH 7.0 (5.0-9.0) Urine Specific [place] 1.011 (1.001-1.035) Urine Protein 1+ (Negative) H Urine Ketones Negative (Negative) Urine Blood Negative /uL (Negative) Urine Nitrite Negative (Negative) Urine Bilirubin Negative (Negative) Urine Urobilinogen Normal mg/dL (Negative) Urine Leukocyte Esterase Negative /uL (Negative) Urine RBC <1 /hpf (0 - 4) Urine WBC <1 /hpf (0 - 5) Urine Squamous Epithelial Cells None seen /hpf (<5) Urine Bacteria None seen /hpf (None Seen) Urine Glucose Normal mg/dL (Normal) Microbiology Microbiology Date/Time Source Procedure Growth Status 10/26/24 09:42 Sputum Gram Stain - Final Complete 10/26/24 09:42 Respiratory Culture - Final Stenotrophomonas maltophilia Enterobacter aerogenes Complete 10/25/24 21:40 Voided Urine Urine Culture - Final Yeast, not Isabel albicans Complete 10/25/24 21:21 Trachea Gram Stain - Final Complete 10/25/24 21:21 Respiratory Culture - Final Stenotrophomonas maltophilia Enterobacter aerogenes Complete 10/25/24 21:10 Blood Blood Culture - Final Staphylococcus epidermidis Complete Labs and/or images reviewed: Labs reviewed by me, Image(s) reviewed by me Assessment/Plan Assessment/Plan Impression: -acute on chronic hypoxic respiratory failure -thyroid cancer, status post tracheostomy placement -PEG tube placement -acute on chronic systolic heart failure with ejection fraction 40% -probable hospital-acquired pneumonia with stenotrophomonas maltophilia and Enterobacter aerogenes -sepsis -NSTEMI, type 2 per Cardiology -sick sinus syndrome secondary to hypoxia Plan: Events: Patient was still not assess for Pass[place] valve. Discussed this with primary nurse. WBC increasing. Continues to be on FiO2 30%. Remains afebrile. Pulmonary consultation: Patient was on ventilator. Patient had bronchoscopy and has been weaned off of ventilator. Currently on trach collar at 30% FiO2 Change antibiotic therapy to micafungin and Bactrim Cardiology consultation: Recommendations reviewed. Repeat troponin will be ordered given patient has persistent ST depressions Continue tube feeding O2 supplementation to keep saturation greater than 92% Speech therapy to evaluate for Pass[place] valve Repeat labs in a.m. Transfer to telemetry floor Plan of care discussed with patient and son-in-law who was bedside. All questions answered. Critical care time spent with patient discussing and formulating plan of care: 40 minutes. This does not include time spent performing procedures. This medical document was created using an electronic medical record system with [employer] system. Although this document has been carefully reviewed, there may still be some phonetic and typographical errors. These areas are purely typographical due to imperfections of the software programs, and do not reflect any compromise in the patient's medical care. Plan discussed with: Patient, Daughter, Other (RN) My Orders Orders - SUNNY GOLDEN NP Procedure Category Date Status Time Methylprednisolone PHA 10/31/24 In Process Sod Succ (Solu Medrol 10:00 Electrocardigram EKG 10/30/24 Logged 15:58 Sulfameth-Trimeth PHA 10/30/24 In Process 80/16mg-Ml (Bactrim) 22:00 Sulfameth-Trimeth PHA 10/30/24 In Process 80/16mg-Ml (Bactrim) 22:00 Transfer Orders XFER 10/31/24 Transmitted 15:20 Date of Service: Oct 31, 2024 Billing Provider: SUNNY GOLDEN NP Common Visit Codes: 06275-XOBXRYIC CARE 30-74 MIN SUNNY GOLDEN NP Oct 31, 2024 15:35
[2024-10-31] MEDS ORDERED: TEMAZEPAM 15 MG CAP PO PRN (15:45)
[2024-10-31] MEDS: ACETYLCYSTEINE 10 %(100MG/ML) SOL 4ML ONE (17:36)
[2024-10-31] MEDS: ALBUTEROL SULF 2.5 MG/0.5ML(0.5%) NEB SOLN ONE (18:22)
--- NOTE | 2024-10-31 21:39 | DVHPN2 ---
Progress Note - Dictate Date Seen: Oct 31, 2024 Medical Necessity Reason Pt with a Central, PICC or Fol: Yes The following are medically ne: Doshi Catheter Reason for doshi catheter: Strict I&O Subjective Patient seen and examined at bedside. S/p trach, on trach collar Overnight events reviewed. vital signs Vital Sign Date Time Temp Pulse Resp B/P (MAP) Pulse Ox O2 Delivery O2 Flow Rate FiO2 10/31/24 20:00 72 10/31/24 19:40 13 98 Trach Collar 7 N/A 10/31/24 19:40 98.7 121/60 (80) 98.7 Total Intake and Output 10/30/24 10/30/24 10/31/24 15:00 23:00 07:00 Intake Total 100 ml 240 ml Output Total 850 ml Balance -750 ml 240 ml medications Current Medications Medications Dose Ordered Sig/Kulwant Route Start Time Stop Time Status Last Admin Dose Admin Morphine Sulfate 1 mg Q1HP PRN IV 10/26/24 02:15 10/26/24 08:41 1 MG Lorazepam 1 mg Q1HP PRN IV 10/26/24 02:15 10/29/24 21:41 1 MG Bisacodyl 10 mg QHSP PRN [place] 10/26/24 02:15 Sodium Biphosphate/ Sodium Phosphate 135 ml DAILYP PRN [place] 10/26/24 02:15 Diagnostic Test (Pha) 1 strip IQ4HR 10/26/24 12:00 10/31/24 17:20 1 STRIP Insulin Human Regular IQ4HR SC 10/26/24 12:00 10/31/24 17:17 4 UNITS Dextrose 50 ml UD PRN IV 10/26/24 10:00 Sodium Chloride 1,000 ml @ 60 mls/hr [id number] IV 10/26/24 10:00 10/30/24 14:28 60 MLS/HR Al Hydrox/Mg Hydrox/Simethicone 30 ml Q6HP PRN PO 10/26/24 10:00 Docusate Sodium 100 mg BIDPRN PRN PO 10/26/24 10:00 Acetaminophen 650 mg Q6HP PRN PO 10/26/24 10:00 10/26/24 23:27 650 MG Acetaminophen/ Hydrocodone Bitart 1 tab Q4HP PRN PO 10/26/24 10:00 Ondansetron HCl 4 mg Q4HP PRN IV 10/26/24 10:00 10/26/24 17:33 4 MG Nitroglycerin 0.4 mg Q5MINP PRN SL 10/26/24 10:00 Albuterol 2.5 mg Q4HPRN PRN NEB 10/26/24 10:00 10/31/24 13:44 2.5 MG Ipratropium [place] 0.5 mg Q4HPRN PRN NEB 10/26/24 10:00 10/31/24 13:44 0.5 MG Sacubitril/ Valsartan 0.5 tab BID PO 10/26/24 22:00 10/31/24 09:50 0.5 TAB Spironolactone 12.5 mg DAILY PO 10/27/24 10:00 10/31/24 09:50 12.5 MG Amiodarone HCl 100 mg DAILY PO 10/27/24 10:00 10/31/24 09:49 100 MG Acetylcysteine 100 mg Q4HWA [facility] 10/27/24 18:15 10/31/24 13:45 100 MG Micafungin Sodium 100 mg/Sodium Chloride 100 ml @ 100 mls/hr DAILY IV 10/28/24 10:00 10/31/24 09:28 100 MLS/HR Enteral Nutritional Formula 1,000 ml 45ML/HR GT 10/28/24 12:15 10/30/24 17:45 1,000 ML Furosemide 20 mg BIDD IV 10/28/24 14:45 10/31/24 18:22 20 MG Methylprednisolone Sodium Succinate 40 mg DAILY IV 10/31/24 10:00 10/31/24 09:49 40 MG Trimethoprim/ Sulfamethoxazole 15 ml/Dextrose 515 ml @ 343.333 mls/hr Q8HR IV 10/30/24 22:00 Hold Trimethoprim/ Sulfamethoxazole 15 ml/Dextrose 265 ml @ 176.667 mls/hr Q8HR IV 10/30/24 22:00 10/31/24 14:11 176.667 MLS/HR Temazepam 15 mg HSPRN PRN PO 10/31/24 15:45 objective Gen.: Patient lying in bed in no apparent distress. S/p trach. On trach collar Head: Normocephalic, atraumatic. Eyes: EOMI/PERRLA. Ears: Normal hearing. Normal anatomy. Neck/trachea: Trach in place. Nose: Normal external anatomy. Mouth: Moist mucous membranes. Chest: Decreased air entry bilaterally. No wheezing or rhonchi. Cardiovascular: Positive S1, positive S2. Regular rate and rhythm. Abdomen: Positive bowel sounds in all 4 quadrants. Soft, non-tender, non- distended. : Deferred. Rectal: Deferred. Skin: Warm, dry. Intact. Extremities: 2+ radial pulses bilaterally. No lower extremity edema. Neuro: Awake, alert, oriented x3. No gross motor or sensory deficits. Cranial nerves II through XII intact. Gait not assessed. laboratory and microbiology Laboratory Tests 10/31/24 11:30 Test 10/31/24 11:30 Range/Units Serum Glucose 120 H 74-106 mg/dL Assessment/Plan Impression: Acute hypoxic respiratory failure On mechanical ventilator CHF Bradycardia Status post tracheostomy Sepsis Mucus plugging of the right upper lobe Events: S/p trach, on trach collar Consult with Speech and Swallow for Passy-[place] valve. DME for Passy[place] valve. Trach care Pulmonary toileting. Continue abx Continue bronchodilators Continue steroids HOB elevation Aspiration precautions. Tube feeds for nutritional support. Labs and imaging reviewed. Rest of plan as noted below. Plan: S/p trach, on trach collar Place on full vent support if any distress. Performed bedside bronchoscopy to clear suspected mucus plugs. There was copious mucus plugs in the right upper lobe in our one through our three. Updated family at bedside in regards to findings. See separate procedure note for full details. CXR image and report reviewed. Trach in place. Hypoinflation. Patchy opacification of the right mid lung zone and left mid lung zone, possible pneumonitis. No pleural effusion or pneumothorax. ABG reviewed. Alkalemia. Titrate FIO2 to keep O2 saturation above 92%. Continue antibiotics. F/u cultures. WBC count trending down. Monitor renal function. Monitor electrolytes. Supplement as necessary. Monitor hemoglobin Nutritional support. Accucheks, ISS. Obtain social work/case management consultation to obtain a Passy [place] valve for patient. GI/DVT prophylaxis. Prognosis: Poor given multiple comorbidities. Rest of plan per hospitalist and other consultants. Thank you Dr. Rosario Dawson for allowing me to participate in this patient's care. Further recommendations will depend on patient's clinical course. Please do not hesitate to contact me if you have any questions or concerns. This medical document was created using an electronic medical record system with [employer] dictation system. Although this document has been carefully reviewed, there may still be some phonetic and typographical errors. These areas are purely typographical due to imperfections of the software programs, and do not reflect any compromise in the patient's medical care. Dietary Evaluation Review Comments: 1) Consider Glucerna 1.5@ 40ml/hr x24 hrs goal rate as tolerated to meet estimated needs 2) Continue current plan of care Expected Outcomes/Goals: F/U in 2-3 days Plan discussed with: Other (RN) CC Plasma Assessment Blood Product Administration S: [id number] BASSAM RG MD Oct 31, 2024 21:39
[2024-11-01] VITALS (18 sets, daily range): BP systolic 95–123; BP diastolic 47–59; PULSE 64–78; RESP 16–20; TEMP 37.1; O2SAT 94–98
--- NOTE | 2024-11-01 06:45 | DVH ---
CHEST RADIOGRAPH Indication: pna Technique: Single frontal view of the chest was obtained Comparison: XY CHEST PORTABLE on DOS: 10/28/24 FINDINGS: Lines and Tubes: None Lungs: Bilateral interstitial prominence. Pleura: No effusion. No pneumothorax. Cardiomediastinal contours: Stable cardiovascular silhouette. Left atrial appendage clip. Bones: No acute osseous abnormality. Status post median sternotomy. IMPRESSION: 1. Pulmonary vascular congestion.
[2024-11-01 06:50] LABS: Basophils # (auto) 0 10 ^3/uL (0-0.2); Basophils % (auto) 0.1 % (0.0-2.0); Eosinophils # (auto) 0 10 ^3/uL (0-0.8); Eosinophils % (auto) 0.1 % (0.0-7.0); Lymphocytes # (auto) 2.7 10 ^3/uL (0.4-5.4); Lymphocytes % (auto) 19.7 % (10.0-50.0); Mean Corpuscular Hemoglobin 28.3 pg (28.0-32.0); Mean Corpuscular Hgb Conc. 32.6 g/dL (32.0-36.0); Monocytes % (auto) 7.6 % (0.0-12.0); Neutrophils # (auto) 9.9 10 ^3/uL (1.6-8.6); Neutrophils % (auto) 72.5 % (37.0-80.0); Nucleated Red Blood Cells % 0.1 %; Platelet Count (auto) 112 10^3/uL (140-450); Red Blood Cells 4.59 10^6/uL (4.0-5.20); Red Cell Distribution Width 17.7 % (11.8-14.3); White Blood Cell 13.7 10^3/uL (4.4-10.8)
[2024-11-01 06:53] LABS: Chloride 104 mmol/L (98-107); Potassium 4.1 mmol/L (3.5-5.1); Sodium 138 mmol/L (136-145)
[2024-11-01 06:54] LABS: Anion Gap 10 (5-15); Calcium 9.1 mg/dL (8.7-10.4); Carbon Dioxide 24 mmol/L (20-31)
[2024-11-01 06:59] LABS: BUN/Creatinine Ratio 31.1 (10.0-20.0); Blood Urea Nitrogen 23 mg/dL (9-23)
[2024-11-01 07:07] LABS: Glucose 113 mg/dL (74-106)
[2024-11-01] MEDS: FUROSEMIDE 20 MG/2 ML VIAL IV ONE (11:59)
--- NOTE | 2024-11-01 12:25 | CONS ---
Pharmacy Clinical Information: CQM HF. Patient qualifies for SGLT2 at this time, however, should be noted that patient is dehydrated based on BUN/SCr and might be beneficial to correct dehydration before considering adding an SGLT2. HELIO AGUILERA PHARMACIST Nov 01, 2024 12:25
--- NOTE | 2024-11-01 12:46 | DVHPN2 ---
Progress Note Date Seen: Nov 01, 2024 Medical Necessity Reason Pt with a Central, PICC or Fol: Yes The following are medically ne: Doshi Catheter Reason for doshi catheter: Strict I&O Objective vital signs Vital Sign Date Time Temp Pulse Resp B/P (MAP) Pulse Ox O2 Delivery O2 Flow Rate FiO2 11/01/24 11:59 111/48 11/01/24 10:20 70 17 97 11/01/24 10:14 Trach Collar 6.0 11/01/24 10:14 28 10/31/24 19:40 98.7 98.7 Total Intake and Output 10/31/24 10/31/24 11/01/24 15:00 23:00 07:00 Intake Total 596.667 ml Output Total 700 ml 1000 ml Balance 596.667 ml -700 ml -1000 ml medications Current Medications Medications Dose Ordered Sig/Kulwant Route Start Time Stop Time Status Last Admin Dose Admin Morphine Sulfate 1 mg Q1HP PRN IV 10/26/24 02:15 10/26/24 08:41 1 MG Lorazepam 1 mg Q1HP PRN IV 10/26/24 02:15 10/29/24 21:41 1 MG Bisacodyl 10 mg QHSP PRN [place] 10/26/24 02:15 Sodium Biphosphate/ Sodium Phosphate 135 ml DAILYP PRN [place] 10/26/24 02:15 Diagnostic Test (Pha) 1 strip IQ4HR 10/26/24 12:00 11/01/24 11:57 1 STRIP Insulin Human Regular IQ4HR SC 10/26/24 12:00 11/01/24 11:58 2 UNITS Dextrose 50 ml UD PRN IV 10/26/24 10:00 Sodium Chloride 1,000 ml @ 60 mls/hr [id number] IV 10/26/24 10:00 10/31/24 23:12 60 MLS/HR Al Hydrox/Mg Hydrox/Simethicone 30 ml Q6HP PRN PO 10/26/24 10:00 Docusate Sodium 100 mg BIDPRN PRN PO 10/26/24 10:00 Acetaminophen 650 mg Q6HP PRN PO 10/26/24 10:00 10/26/24 23:27 650 MG Acetaminophen/ Hydrocodone Bitart 1 tab Q4HP PRN PO 10/26/24 10:00 Ondansetron HCl 4 mg Q4HP PRN IV 10/26/24 10:00 10/26/24 17:33 4 MG Nitroglycerin 0.4 mg Q5MINP PRN 10/26/24 10:00 Albuterol 2.5 mg Q4HPRN PRN NEB 10/26/24 10:00 11/01/24 10:13 2.5 MG Ipratropium [place] 0.5 mg Q4HPRN PRN NEB 10/26/24 10:00 11/01/24 07:21 0.5 MG Sacubitril/ Valsartan 0.5 tab BID PO 10/26/24 22:00 11/01/24 09:43 0.5 TAB Spironolactone 12.5 mg DAILY PO 10/27/24 10:00 11/01/24 09:43 12.5 MG Amiodarone HCl 100 mg DAILY PO 10/27/24 10:00 11/01/24 09:44 100 MG Acetylcysteine 100 mg Q4HWA [facility] 10/27/24 18:15 11/01/24 10:14 100 MG Micafungin Sodium 100 mg/Sodium Chloride 100 ml @ 100 mls/hr DAILY IV 10/28/24 10:00 11/01/24 09:47 100 MLS/HR Enteral Nutritional Formula 1,000 ml 45ML/HR GT 10/28/24 12:15 10/30/24 17:45 1,000 ML Furosemide 20 mg BIDD IV 10/28/24 14:45 10/31/24 18:22 20 MG Methylprednisolone Sodium Succinate 40 mg DAILY IV 10/31/24 10:00 11/01/24 09:42 40 MG Trimethoprim/ Sulfamethoxazole 15 ml/Dextrose 515 ml @ 343.333 mls/hr Q8HR IV 10/30/24 22:00 Hold Trimethoprim/ Sulfamethoxazole 15 ml/Dextrose 265 ml @ 176.667 mls/hr Q8HR IV 10/30/24 22:00 10/31/24 23:12 176.667 MLS/HR Temazepam 15 mg HSPRN PRN PO 10/31/24 15:45 laboratory and microbiology Laboratory Tests 11/01/24 05:30 Test 11/01/24 05:30 Range/Units Serum Glucose 113 H 74-106 mg/dL Problem List/Assessment/Plan Problem List/Assessment/Plan 11/01/24 no symptoms per patient, she had a tracheostomy done at "[facility] in [place]". sutures are grown into the skid deep to the tracheostomy bridge, no op report available, patient to return to the surgeon who performed the operation Plan discussed with: Patient Dietary Evaluation Review Comments: 1) Consider Glucerna 1.5@ 40ml/hr x24 hrs goal rate as tolerated to meet estimated needs 2) Continue current plan of care Expected Outcomes/Goals: F/U in 2-3 days LIZETTE DOMINGO MD Nov 01, 2024 12:46
--- NOTE | 2024-11-01 15:50 | DVHDS2 ---
Discharge Summary Date of Admission Oct 26, 2024 at 09:50 Date of Discharge: Nov 01, 2024 Admitting Diagnosis Acute hypoxic respiratory failure Labs/Diagnostic Data: Laboratory Results Test 11/01/24 11:49 11/01/24 05:30 10/30/24 18:37 10/29/24 21:22 POC Glucose 139 mg/dl (70-106) White Blood Count 13.7 10^3/uL (4.4-10.8) Red Blood Count 4.59 10^6/uL (4.0-5.20) Hemoglobin 13.0 g/dL (12.2-16.2) Hematocrit 40.0 % (36.0-46.0) Mean Corpuscular Volume 87.0 fL (80.0-100.0) Mean Corpuscular Hemoglobin 28.3 pg (28.0-32.0) Mean Corpuscular Hemoglobin Concent 32.6 g/dL (32.0-36.0) Red Cell Distribution Width 17.7 % (11.8-14.3) Platelet Count 112 10^3/uL (140-450) Mean Platelet Volume 10.6 fL (6.9-10.8) Neutrophils (%) (Auto) 72.5 % (37.0-80.0) Lymphocytes (%) (Auto) 19.7 % (10.0-50.0) Monocytes (%) (Auto) 7.6 % (0.0-12.0) Eosinophils (%) (Auto) 0.1 % (0.0-7.0) Basophils (%) (Auto) 0.1 % (0.0-2.0) Neutrophils # (Auto) 9.9 10 ^3/uL (1.6-8.6) Lymphocytes # (Auto) 2.7 10 ^3/uL (0.4-5.4) Monocytes # (Auto) 1.0 10 ^3/uL (0-1.3) Eosinophils # (Auto) 0 10 ^3/uL (0-0.8) Basophils # (Auto) 0 10 ^3/uL (0-0.2) Nucleated Red Blood Cells 0.1 % Sodium Level 138 mmol/L (136-145) Potassium Level 4.1 mmol/L (3.5-5.1) Chloride Level 104 mmol/L (98-107) Carbon Dioxide Level 24 mmol/L (20-31) Anion Gap 10 (5-15) Blood Urea Nitrogen 23 mg/dL (9-23) Creatinine 0.74 mg/dL (0.550-1.02) Glomerular Filtration Rate Calc 85 mL/min (>90) BUN/Creatinine Ratio 31.1 (10.0-20.0) Serum Glucose 113 mg/dL (74-106) Calcium Level 9.1 mg/dL (8.7-10.4) Troponin I High Sensitivity 38 ng/L (</=34) Total Bilirubin 0.8 mg/dL (0.2-1.0) Aspartate Amino Transferase (AST) 17 U/L (13-40) Alanine Aminotransferase (ALT) 44 U/L (7-40) Alkaline Phosphatase 164 U/L (46-116) Total Protein 6.4 g/dL (5.7-8.2) Albumin 3.9 g/dL (3.2-4.8) Test 10/29/24 04:19 10/28/24 11:20 10/28/24 10:23 10/28/24 09:19 Urine Color Light-yellow (Yellow) Urine Clarity Clear (Clear) Urine pH 7.0 (5.0-9.0) Urine Specific Chloride 1.011 (1.001-1.035) Urine Protein 1+ (Negative) Urine Ketones Negative (Negative) Urine Blood Negative /uL (Negative) Urine Nitrite Negative (Negative) Urine Bilirubin Negative (Negative) Urine Urobilinogen Normal mg/dL (Negative) Urine Leukocyte Esterase Negative /uL (Negative) Urine RBC <1 /hpf (0 - 4) Urine WBC <1 /hpf (0 - 5) Urine Squamous Epithelial Cells None seen /hpf (<5) Urine Bacteria None seen /hpf (None Seen) Urine Glucose Normal mg/dL (Normal) Blood Gas Specimen Type Arterial Blood Gas Sample Site Right radial Blood Gas Patient Temperature 37.0 Arterial Blood Date Drawn Arterial Blood pH 7.518 (7.350-7.450) Arterial Blood Partial Pressure CO2 26.0 mmHg (32.0-45.0) Arterial Blood Partial Pressure O2 87.7 mmHg (83.0-108.0) Arterial Blood HCO3 20.7 mmol/L (21.0-28.0) Arterial Blood Oxygen Saturation 96.1 % (94.0-98.0) Arterial Blood Base Excess -1.3 mmol/L (-2.0-3.0) Arterial Blood Oxyhemoglobin 95.4 % (94.0-98.0) Arterial Blood Carboxyhemoglobin 0.2 % (0.5-1.5) Arterial Blood Methemoglobin 0.5 % (0.0-1.5) German Test Modified Blood Gas Total Hemoglobin 10.40 g/dL (12.0-16.0) Blood Gas Modality Vent - cpap Blood Gas Spontaneous Rate 24 FiO2 % 35.0 Blood Gas Pressure Support 8 Blood Gas PEEP or CPAP 5.0 Stool Occult Blood Sample #3 Negative (Negative) Magnesium Level 2.0 mg/dL (1.6-2.6) Vancomycin Level Trough 23.3 ug/mL (5-10) Test 10/26/24 12:04 10/26/24 11:05 10/25/24 22:53 10/25/24 21:40 Hemoglobin A1c 6.0 % A1C (<5.7) Triglycerides Level 108 mg/dL (< 150) Cholesterol Level 133 mg/dL (< 200) LDL Cholesterol 65 mg/dL (< 100) HDL Cholesterol 46 mg/dL (40-59) Thyroid Stimulating Hormone (TSH) 7.27 uIU/mL (0.55-4.78) Blood Gas Set Respiration Rate 18.0 Blood Gas Tidal Volume 450.0 Blood Gas Critical Value Read Back Yes Blood Gas Notified Whom Alejandro saab md Blood Gas Notified Time [id number] Blood Gas Notified By Lalita wan rrt Lactic Acid Level 8.3 mmol/L (0.4-2.0) Urine Yeast (Budding) Occasional /hpf (None Test 10/25/24 20:55 Prothrombin Time 11.7 sec (9.3-11.8) Prothrombin Time INR 1.11 (0.9-1.15) Activated Partial Thromboplast Time 22.8 SEC (24.5-34.5) Ammonia 33 umol/L (11-32) B-Type Natriuretic Peptide 1284.16 pg/mL (0-100) Other Laboratory Tests 11/01/24 05:30 Brief Hx & Hospital Course: HPI Comments 74 y/o F, with a Hx lung and thyroid CA and tracheostomy, is BIBA for c/o shortness of breath, today. Per EMS report, patient's family called after patient began having difficulty breathing at around 2000, this evening, and failing to clean-out the patient's tracheostomy tube that she had placed for throat CA 2x weeks ago. Patient was stated to have been seen at [facility] ED hospital for same c/o shortness of breath, this morning, prior being medically cleared and discharged. On scene, EMS informs on being unable to obtain an initial SpO2 saturation reading in addition to 12 lead EKG but noted on patient's pulse rate being with in the low 20's-30's range. En route, patient had bag-valve mask placed at 15LPM. Upon arrival to ED, care was resumed by ED staff. Further Hx cannot be obtained, due to patient's current condition and absence of family/property caretaker historians, at time of arrival and initial assessment. See EMS run sheet for further information. Course of hospitalization: Cardiology consultation was obtained with bradycardia and sick sinus syndrome attributed to hypoxia. No further treatment cardiology standpoint recommended. Pulmonary consultation was obtained. Patient was placed on mechanical ventilation despite the patient being on trach collar at home. Patient had bronchoscopy performed with secretions coming back positive for stenotrophomonas maltophilia Enterobacter aerogenes. Patient was antibiotic therapy was changed to Bactrim IV. Patient has been weaned off of ventilator. Currently she was on trach collar at 30% FiO2 saturation 96%. Leukocytosis has improved. Patient has been afebrile. Patient has been ambulating without difficulty. At this time patient can be discharged home. Discussion was made with the family regarding continuation of home medications and follow up with the discharge Clinic as well as her PCP in 1-2 weeks. Patient will be continued on antibiotic therapy with Bactrim DS given generic form as a solution via the G-tube twice a day for 10 days. Family is agreeable with discharge plan. All questions answered. Physical examination General: Alert and Oriented x3. No acute distress. Well-nourished. Eyes: EOMI. Anicteric. HENT: Moist mucous membranes. Tracheostomy Lungs: Clear to auscultation bilaterally. No accessory muscle use. Cardiovascular: Regular rate and rhythm. No murmur. No JVD. Abdomen: Soft, non-tender and non-distended. No palpable masses. Extremities: No edema. Non-tender. Skin: No rashes or lesions. Warm. Neurologic: No focal neurological deficits. CN II-XII grossly intact, but not individually tested. Psychiatric: Cooperative. Appropriate mood and affect. Total time spent with patient discussing and formulating plan of care: 35 minutes. This medical document was created using an electronic medical record system with [employer] system. Although this document has been carefully reviewed, there may still be some phonetic and typographical errors. These areas are purely typographical due to imperfections of the software programs, and do not reflect any compromise in the patient's medical care. Consults/Reason for consult Cardiology: Sick sinus syndrome Pulmonology: Acute respiratory failure Condition at Discharge: Poor Final Diagnosis/Problems List Acute on chronic hypoxic respiratory failure Secondary Diagnosis: -acute on chronic hypoxic respiratory failure -thyroid cancer, status post tracheostomy placement -PEG tube placement -acute on chronic systolic heart failure with ejection fraction 40% -probable hospital-acquired pneumonia with stenotrophomonas maltophilia and Enterobacter aerogenes -sepsis secondary to his to stenotrophomonas maltophilia and Enterobacter Aeorgenes -NSTEMI, type 2 per Cardiology -sick sinus syndrome secondary to hypoxia Discharge Disposition: Home Discharge Instruct/Medications Diet: See Comment Diet comment: Continue tube feeding as previously ordered by PCP Activity: No Restrictions, As Tolerated Follow Up/Referral: Discharge Clinic in one week Follow up with PCP in 1-2 weeks Medications: Bactrim DS, equivalent solution twice a day times 10 days via G-tube Continue all previous home medication 36 Discharge Statement: "Patient was advised to return to the ER or call 911 if any headaches, dizziness, shortness of breath, chest pain, abdominal pain, bleeding, fevers, or worsening of medical condition. Patient was counseled about treatment plan, medications, possible side effects, patientverbalized understanding. All questions were answered to the best of my ability. This discharge took greater then 30 minutes in planning, reviewing documentation, counseling the patient, and discussing with other team members." ASSESSMENT ASSESSMENT Assessment Acute on chronic hypoxic respiratory failure Date of Service: Nov 01, 2024 Billing Provider: SUNNY GOLDEN NP Common Visit Codes: 26886-LVU/OBS DISCH DAY >30min SUNNY GOLDEN NP Nov 01, 2024 15:50
--- NOTE | 2024-11-01 20:46 | DVHPN2 ---
Progress Note - Dictate Date Seen: Nov 01, 2024 Medical Necessity Reason Pt with a Central, PICC or Fol: No Subjective Patient seen and examined at bedside. S/p trach, on trach collar Overnight events reviewed. vital signs Vital Sign Date Time Temp Pulse Resp B/P (MAP) Pulse Ox O2 Delivery O2 Flow Rate FiO2 11/01/24 20:13 75 18 97 11/01/24 20:06 Trach Collar 6.0 11/01/24 20:06 28 28 11/01/24 18:09 123/59 11/01/24 17:00 97.8 97.8 Total Intake and Output 10/31/24 10/31/24 11/01/24 15:00 23:00 07:00 Intake Total 596.667 ml Output Total 700 ml 1000 ml Balance 596.667 ml -700 ml -1000 ml medications Current Medications Medications Dose Ordered Sig/Kulwant Route Start Time Stop Time Status Last Admin Dose Admin Morphine Sulfate 1 mg Q1HP PRN IV 10/26/24 02:15 10/26/24 08:41 1 MG Lorazepam 1 mg Q1HP PRN IV 10/26/24 02:15 10/29/24 21:41 1 MG Bisacodyl 10 mg QHSP PRN MD 10/26/24 02:15 Sodium Biphosphate/ Sodium Phosphate 135 ml DAILYP PRN MD 10/26/24 02:15 Diagnostic Test (Pha) 1 strip IQ4HR 10/26/24 12:00 11/01/24 18:20 1 STRIP Insulin Human Regular IQ4HR SC 10/26/24 12:00 11/01/24 18:20 4 UNITS Dextrose 50 ml UD PRN IV 10/26/24 10:00 Sodium Chloride 1,000 ml @ 60 mls/hr [id number] IV 10/26/24 10:00 10/31/24 23:12 60 MLS/HR Al Hydrox/Mg Hydrox/Simethicone 30 ml Q6HP PRN PO 10/26/24 10:00 Docusate Sodium 100 mg BIDPRN PRN PO 10/26/24 10:00 Acetaminophen 650 mg Q6HP PRN PO 10/26/24 10:00 10/26/24 23:27 650 MG Acetaminophen/ Hydrocodone Bitart 1 tab Q4HP PRN PO 10/26/24 10:00 Ondansetron HCl 4 mg Q4HP PRN IV 10/26/24 10:00 10/26/24 17:33 4 MG Nitroglycerin 0.4 mg Q5MINP PRN 10/26/24 10:00 Albuterol 2.5 mg Q4HPRN PRN [facility] 10/26/24 10:00 11/01/24 14:38 2.5 MG Ipratropium [place] 0.5 mg Q4HPRN PRN [facility] 10/26/24 10:00 11/01/24 07:21 0.5 MG Sacubitril/ Valsartan 0.5 tab BID PO 10/26/24 22:00 11/01/24 09:43 0.5 TAB Spironolactone 12.5 mg DAILY PO 10/27/24 10:00 11/01/24 09:43 12.5 MG Amiodarone HCl 100 mg DAILY PO 10/27/24 10:00 11/01/24 09:44 100 MG Acetylcysteine 100 mg Q4HWA [facility] 10/27/24 18:15 11/01/24 20:06 100 MG Micafungin Sodium 100 mg/Sodium Chloride 100 ml @ 100 mls/hr DAILY IV 10/28/24 10:00 11/01/24 09:47 100 MLS/HR Enteral Nutritional Formula 1,000 ml 45ML/HR GT 10/28/24 12:15 11/01/24 18:05 1,000 ML Furosemide 20 mg BIDD IV 10/28/24 14:45 11/01/24 18:09 20 MG Methylprednisolone Sodium Succinate 40 mg DAILY IV 10/31/24 10:00 11/01/24 09:42 40 MG Trimethoprim/ Sulfamethoxazole 15 ml/Dextrose 515 ml @ 343.333 mls/hr Q8HR IV 10/30/24 22:00 Hold Trimethoprim/ Sulfamethoxazole 15 ml/Dextrose 265 ml @ 176.667 mls/hr Q8HR IV 10/30/24 22:00 11/01/24 13:06 176.667 MLS/HR Temazepam 15 mg HSPRN PRN PO 10/31/24 15:45 objective Gen.: Patient lying in bed in no apparent distress. S/p trach. On trach collar Head: Normocephalic, atraumatic. Eyes: EOMI/PERRLA. Ears: Normal hearing. Normal anatomy. Neck/trachea: Trach in place. Nose: Normal external anatomy. Mouth: Moist mucous membranes. Chest: Decreased air entry bilaterally. No wheezing or rhonchi. Cardiovascular: Positive S1, positive S2. Regular rate and rhythm. Abdomen: Positive bowel sounds in all 4 quadrants. Soft, non-tender, non- distended. : Deferred. Rectal: Deferred. Skin: Warm, dry. Intact. Extremities: 2+ radial pulses bilaterally. No lower extremity edema. Neuro: Awake, alert, oriented x3. No gross motor or sensory deficits. Cranial nerves II through XII intact. Gait not assessed. laboratory and microbiology Laboratory Tests 11/01/24 05:30 Test 11/01/24 05:30 Range/Units Serum Glucose 113 H 74-106 mg/dL Assessment/Plan Impression: Acute hypoxic respiratory failure On mechanical ventilator CHF Bradycardia Status post tracheostomy Sepsis Mucus plugging of the right upper lobe Events: S/p trach, on trach collar Consult with Speech and Swallow for Passy-Daniel valve. DME for Passy-Daniel valve. Trach care Pulmonary toileting. Continue abx Continue bronchodilators Continue steroids HOB elevation Aspiration precautions. Tube feeds for nutritional support. Patient is stable for discharge from the pulmonary standpoint. Labs and imaging reviewed. Rest of plan as noted below. Plan: S/p trach, on trach collar Place on full vent support if any distress. s/p bedside bronchoscopy (10/27/24) to clear suspected mucus plugs. There was copious mucus plugs in the right upper lobe in our one through our three. Updated family at bedside in regards to findings. See separate procedure note for full details. CXR image and report reviewed. Trach in place. Hypoinflation. Patchy opacification of the right mid lung zone and left mid lung zone, possible pneumonitis. No pleural effusion or pneumothorax. ABG reviewed. Alkalemia. Titrate FIO2 to keep O2 saturation above 92%. Continue antibiotics. F/u cultures. WBC count trending down. Monitor renal function. Monitor electrolytes. Supplement as necessary. Monitor hemoglobin Nutritional support. Accucheks, ISS. Obtain social work/case management consultation to obtain a Passy Daniel valve for patient. GI/DVT prophylaxis. Prognosis: Poor given multiple comorbidities. Rest of plan per hospitalist and other consultants. Thank you Dr. Rosario Dawson for allowing me to participate in this patient's care. Further recommendations will depend on patient's clinical course. Please do not hesitate to contact me if you have any questions or concerns. This medical document was created using an electronic medical record system with [employer] dictation system. Although this document has been carefully reviewed, there may still be some phonetic and typographical errors. These areas are purely typographical due to imperfections of the software programs, and do not reflect any compromise in the patient's medical care. Dietary Evaluation Review Comments: 1) Consider Glucerna 1.5@ 40ml/hr x24 hrs goal rate as tolerated to meet estimated needs 2) Continue current plan of care Expected Outcomes/Goals: F/U in 2-3 days Plan discussed with: Patient, Other (DIMITRI Dias) CC Plasma Assessment Blood Product Administration S: [id number] BASSAM RG MD Nov 01, 2024 20:46
== END 2024-11-01 20:37 | disposition home or self-care (01) | DRG 720 ==
LOC: ER 20:37 → EDBD 20:37 → TELE 10-26 09:50 → TELE-WESTW 10-31 21:42
PROVIDERS: ADMIT Hospitalist; ATTEND Nurse Practitioner Acute Care
PROC: 5A1945Z Respiratory Ventilation, 24-96 Consecutive Hours (ICD-10-PCS; principal; 2024-10-26)
PROC: 06JY3ZZ Inspection of Lower Vein, Percutaneous Approach (ICD-10-PCS; 2024-10-26)
PROC: 06HY33Z Insertion of Infusion Device into Lower Vein, Percutaneous Approach (ICD-10-PCS; 2024-10-26)
PROC: 0B9D8ZX Drainage of Right Middle Lung Lobe, Via Natural or Artificial Opening Endoscopic, Diagnostic (ICD-10-PCS; 2024-10-26)
PROC: 30233N1 Transfusion of Nonautologous Red Blood Cells into Peripheral Vein, Percutaneous Approach (ICD-10-PCS; 2024-10-26)
PROC: 5A0935A Assistance with Respiratory Ventilation, Less than 24 Consecutive Hours, High Flow/Velocity Cannula (ICD-10-PCS; 2024-10-28)
DX: A41.59 Other Gram-negative sepsis (principal); J96.21 Acute and chronic respiratory failure with hypoxia; R65.21 Severe sepsis with septic shock; I50.23 Acute on chronic systolic (congestive) heart failure; J15.69 Pneumonia due to other Gram-negative bacteria; C78.01 Secondary malignant neoplasm of right lung; C78.02 Secondary malignant neoplasm of left lung; I49.5 Sick sinus syndrome; R73.03 Prediabetes; I21.A1 Myocardial infarction type 2; I05.2 Rheumatic mitral stenosis with insufficiency; Z66 Do not resuscitate; D64.9 Anemia, unspecified; Z85.850 Personal history of malignant neoplasm of thyroid; I48.0 Paroxysmal atrial fibrillation; Z93.0 Tracheostomy status; Z85.819 Personal history of malignant neoplasm of unspecified site of lip, oral cavity, and pharynx; Z86.73 Personal history of transient ischemic attack (TIA), and cerebral infarction without residual deficits; Z87.74 Personal history of (corrected) congenital malformations of heart and circulatory system; Z95.3 Presence of xenogenic heart valve; Y95 Nosocomial condition
CPT/HCPCS: 36415; 36556; 36600; 71045; 80048; 80053; 80061; 80202; 81001; 82270; 82565; 82805; 82962; 83036; 83735; 84443; 84484; 85014; 85018; 85025; 86920; 87070; 87077; 87088; 87186; 87205; 93005; 93306; 94002; 94003; 94640; 96365; 96367; 96375; 97110; 97116; 97162; 97530; 99291; G0378; J0171; J1815; J2003; J2248; J2250; J2405; J2543; J3490; J7060

== ENCOUNTER 2024-11-04 20:40 | Emergency (ER) | payer MEDICAID ==
[~2024-11-04] VITALS: Ht 162.6 cm; Wt 63.0 kg
--- NOTE | 2024-11-04 21:09 | ED.PDOC ---
History of Present Illness HPI Comments 74 y/o F, with a Hx of lung and thyroid CA and tracheostomy and G-tube placement, is BIBA for c/o shortness of breath, today. Per EMS report, patient is non-verbal and was brought after family endorses on patient having sudden and unprovoked onset of difficulty breathing at 0800, this evening. Patient is sta tony to have been, recently, Dx with PNA and to have started Abx Tx 3x days ago, with unknown timeframe of tracheostomy tube placement. Patient has no reported chest pain, cough, congestion, fever, chills, tracheostomy tube obstruction, or other associated symptoms or modifiers at this time. EMS staff endorses on finding the patient on scene with rhonchi bilaterally and was placed on 8LPM en route. Further Hx is limited, due to patient's condition and absence of family/loan specialist historians. Chief Complaint: Shortness of Breath Time Seen by MD: 20:50 Reviewed Notes: Nurses Notes, Medications, Allergies Allergies: Coded Allergies: NO KNOWN ALLERGIES (Unverified , 10/25/24) Information Source: Emergency Med Personnel Mode of Arrival: EMS Severity: Moderate Timing: Minutes Duration: Since onset Prehospital treatment: 12 Lead EKG, Safety Instructor, Oxygen Past Medical History PAST MEDICAL HISTORY: Cancer (lung and thryoid CA) Past Medical History (Other): PNA Surgical History (Other): tracheostomy and G tube placement PATIENT RELATIONS COORDINATOR History: No Pertinent PATIENT RELATIONS COORDINATOR History Family History Family History: Reviewed,noncontributory to illness, No family hx of Cancer, No family hx of DM, No family hx of Heart sh[place], No family hx of HTN, No family hx ofKidney shiloh, No family hx of Liver shil[place], No family hx of Lung sh[place], No family hx of Stroke Social History Smoker: Non-Smoker Alcohol: Denies ETOH Use Drugs: Denies Drug Use Lives In: Home, Assisted Care Respiratory: reports: shortness of breath All Other Systems: Reviewed and Negative (all pertinent negative unless otherwise stated in HPI ) Physical Exam Exam Comments patient is non-verbal General Appearance: No Apparent Distress, Normal HEENT: Normal ENT Inspection, Pharynx Normal, TMs Normal Neck: Full Range of Motion, Non-Tender, Normal, Normal Inspection Respiratory: Chest Non-Tender, No Accessory Muscle Use, No Respiratory Distress, Other (coarse breathe sounds bilaterally, tracheostomy tube in place ) Cardiovascular: No Edema, No JVD, No Murmur, No Gallop, Normal Peripheral Pulses, Regular Rate/Rhythm Breast Exam: Deferred Gastrointestinal: No Organomegaly, Non Tender, No Pulsatile Mass, Normal Bowel Sounds, Soft, Other (G-tube in place ) Genitalia: Deferred Pelvic: Deferred Rectal: Deferred Extremities: No calf tenderness, Normal capillary refill, Normal inspection, Normal range of motion, Non-tender, No pedal edema Musculoskeletal : Apperance: Normal Neurologic: Alert, regulatory consultant II-XII nml as Tested, No Motor Deficits, Normal Affect, Normal Mood, No Sensory Deficits Cerebellar Function: Normal Reflexes: Normal Skin: Dry, Normal Color, Warm Lymphatic: No Adenopathy Was a procedure done? Was a procedure done?: Yes Sedation Sedation?: No Central Line Recorder of insertion practice: Registered Land Surveyor Occupation of general clerk: Attending Physician Indication: Hypotension Room prepared for procedure: Yes Registered Land Surveyor performed hand hygien: Yes Maximal sterile barrier precau: Mask/Eye shield, Sterlie gloves, Large sterlie drape Skin Preparation: Chlorhexidine gluconate Skin preparation completely dr: Yes Insertion site: Right, Femoral Central line catheter type: [id number] dialysis Number of lumens: 3 Central line exchanged over a: Yes Antiseptic ointment applied to: Yes Post Assessment: Proper placement Informed consent obtained: No Risks/benefits/alt described: No Other Procedure Procedure Right femoral arterial line Indication blood pressure measuring while on multiple pressors Prep Chloro-prep Success Yes Informed consent obtained: No Risks, benefits, and alternati: No EKG EKG : Pulse Rate (adult): 78 [place]: Normal Cardiac Rhythm: NSR Block: None Hypertrophy: None ST: Normal Differential Dx Considerations may include: tracheostomy obstruction, post-tracheostomy placement complication, URI, viral syndrome, congestion, PNA, pleural effusions, Covid19, bronchitis X-Ray, Labs, Meds, VS Vital Signs Date Time Temp Pulse Resp B/P (MAP) Pulse Ox O2 Delivery O2 Flow Rate FiO2 11/05/24 02:55 44 50 Ambu-Bag 45 11/05/24 00:11 70 43/28 (33) 11/04/24 22:49 61 17 157/35 (75) 90 11/04/24 22:49 157/35 11/04/24 22:32 104 16 172/78 (109) 11/04/24 22:30 106 16 188/81 (116) 80 11/04/24 22:29 16 100 Mechanical Ventilator+ 100 100 11/04/24 22:16 44 16 187/57 (100) 97 11/04/24 22:16 187/57 11/04/24 22:08 97.5 50 172/59 (96) 100 97.5 11/04/24 22:05 50 100 Mechanical Ventilator+ 100 100 11/04/24 22:04 74 11/04/24 22:03 208/77 11/04/24 22:01 58 208/77 (120) 100 11/04/24 22:01 208/77 11/04/24 21:57 166/80 11/04/24 21:57 59 166/80 (108) 100 11/04/24 21:52 119/81 11/04/24 21:43 45 119/81 (94) 100 11/04/24 21:40 89 16 172/59 (96) 100 100 11/04/24 21:12 78 11/04/24 20:48 78 11/04/24 20:45 97.2 77 32 120/60 (80) 99 Lab Test 11/04/24 23:43 11/04/24 22:19 11/04/24 21:19 Range/Units Blood Gas Specimen Type Arterial Blood Gas Sample Site Arterial line Blood Gas Patient Temperature 37.0 Arterial Blood Date Drawn [id number] Arterial Blood pH 6.941 *L 7.350-7.450 Arterial Blood Partial Pressure CO2 101.7 *H 32.0-45.0 mmHg Arterial Blood Partial Pressure O2 103.5 83.0-108.0 mmHg Arterial Blood HCO3 21.4 21.0-28.0 mmol/L Arterial Blood Oxygen Saturation 92.7 L 94.0-98.0 % Arterial Blood Base Excess -12.5 L -2.0-3.0 mmol/L Arterial Blood Oxyhemoglobin 92.0 L 94.0-98.0 % Arterial Blood Carboxyhemoglobin 0.2 L 0.5-1.5 % Arterial Blood Methemoglobin 0.6 0.0-1.5 % German Test N/a Blood Gas Total Hemoglobin 12.60 12.0-16.0 g/dL Blood Gas Set Respiration Rate 16.0 Blood Gas Modality Vent - p/c Blood Gas Spontaneous Rate 16 FiO2 % 100.0 Blood Gas Spontaneous Tidal Volume 404 Blood Gas Inspiratory Pressure 21.0 Blood Gas Pressure Support 16 Blood Gas PEEP or CPAP 5.0 Bl Gas Inspiratory/Expiratory Ratio 1:2 Blood Gas Critical Value Read Back Yes Blood Gas Notified Whom moira Zacarias Blood Gas Notified Time [id number] Blood Gas Notified By oniel Walton Sodium Level 135 L 135 L 136-145 mmol/L Potassium Level 4.8 5.3 H 3.5-5.1 mmol/L Chloride Level 101 101 98-107 mmol/L Carbon Dioxide Level 22 24 20-31 mmol/L Anion Gap 12 10 5-15 Blood Urea Nitrogen 27 H 27 H 9-23 mg/dL Creatinine 0.89 0.83 0.550-1.02 mg/dL Glomerular Filtration Rate Calc 68 74 >90 mL/min BUN/Creatinine Ratio 30.3 H 32.5 H 10.0-20.0 Serum Glucose 162 H 95 74-106 mg/dL Lactic Acid Level 4.7 *H 0.4-2.0 mmol/L Calcium Level 10.2 9.4 8.7-10.4 mg/dL Total Bilirubin 0.4 0.2-1.0 mg/dL Aspartate Amino Transferase (AST) 53 H 13-40 U/L Alanine Aminotransferase (ALT) 42 H 7-40 U/L Alkaline Phosphatase 209 H 46-116 U/L Troponin I High Sensitivity 181 *H 99 *H </=34 ng/L Total Protein 6.6 5.7-8.2 g/dL Albumin 4.2 3.2-4.8 g/dL White Blood Count 12.5 H 4.4-10.8 10^3/uL Red Blood Count 4.48 4.0-5.20 10^6/uL Hemoglobin 12.9 12.2-16.2 g/dL Hematocrit 40.6 36.0-46.0 % Mean Corpuscular Volume 90.7 # 80.0-100.0 fL Mean Corpuscular Hemoglobin 28.9 28.0-32.0 pg Mean Corpuscular Hemoglobin Concent 31.9 L 32.0-36.0 g/dL Red Cell Distribution Width 17.6 H 11.8-14.3 % Platelet Count 107 L 140-450 10^3/uL Mean Platelet Volume 10.4 6.9-10.8 fL Neutrophils (%) (Auto) 37.0-80.0 % Lymphocytes (%) (Auto) 10.0-50.0 % Monocytes (%) (Auto) 0.0-12.0 % Basophils (%) (Auto) 0.0-2.0 % Neutrophils # (Auto) 1.6-8.6 10 ^3/uL Lymphocytes # (Auto) 0.4-5.4 10 ^3/uL Monocytes # (Auto) 0-1.3 10 ^3/uL Differential Total Cells Counted 100.0 100 Neutrophils % (Manual) 80 37.0-80.0 Band Neutrophils % (Manual) 0 Lymphocytes % (Manual) 13 10.0-50.0 Monocytes % (Manual) 6 0-12 Eosinophils % (Manual) 1 0-7 Basophils % (Manual) 0 0.0-2.0 Metamyelocytes % (manual) 0 Myelocytes % (Manual) 0 Promyelocytes % (Manual) 0 Blast Cells % (Manual) 0 Reactive Lymphocytes 0 Platelet Estimate Decreased B-Type Natriuretic Peptide 260.93 0-100 pg/mL Current Medications Medications (Trade) Dose Ordered Sig/Kulwant Route Start Time Stop Time Status Last Admin Rocuronium Sp[place] 100 mg ONCE ONCE IV 11/04/24 22:15 11/04/24 22:16 DC 11/04/24 22:01 Etomidate 20 mg ONCE ONCE IV 11/04/24 22:15 11/04/24 22:16 DC 11/04/24 22:01 Propofol 100 ml @ 1.89 mls/hr Q24H IV 11/04/24 22:15 11/04/24 22:49 Dopamine HCl/ Dextrose 250 ml @ 11.813 mls/ hr [id number] IV 11/04/24 22:15 11/04/24 21:52 Albuterol (Ventolin Medneb) 20 mg ONCE ONCE NEB 11/04/24 22:30 11/04/24 22:31 DC 11/04/24 22:29 Sodium Bicarbonate 150 ml ONCE ONCE IV 11/05/24 00:00 11/05/24 00:01 DC 11/04/24 23:45 Time of 1ST Reevaluation: 21:20 Reevaluation 1ST: Unchanged Patient Education/Counseling: Diagnosis, Treatment Family Education/Counseling: No Family Present Departure 1 Departure Time of Disposition: 06:03 (Patient presented in respiratory failure with severe bradycardia. Patient was suctioned and placed on a vent. Patient was paralyzed and sedated while on the vent. Central line and arterial line was placed in the right femoral area. Discussed with patient's family who agreed that patient should be DNR. Patient bradied down and time of was declared at 0013.) Impression: Primary Impression: Respiratory failure Qualified Codes: J96.01 - Acute respiratory failure with hypoxia; J96.02 - Acute respiratory failure with hypercapnia Additional Impression: Bradycardia Disposition: 20 Admit to: [place] Condition: Other () Critical Care Note Critical Care Time?: Yes Critical care comment: Acute respiratory failure Authorized and Performed by: Keven Rondon MD Total critical care time: Approximately 32 minutes Due to a high probability of clinically significant, life threatening deterioration, the patient required my highest level of preparedness to intervene emergently and I personally spent this critical care time directly and personally managing the patient. This critical care time included obtaining a history; examining the patient; pulse oximetry; ordering and review of studies; arranging urgent treatment with development of a management plan; evaluation of patient's response to treatment; frequent reassessment; and, discussions with other providers. This critical care time was performed to assess and manage the high probability of imminent, life-threatening deterioration that could result in multi-organ failure. It was exclusive of separately billable procedures and treating other patients and teaching time. Please see my other sections and the rest of the note for further information on patient assessment and treatment. Stability Stability form required: No Heart Score Heart Score: Heart Score Response (Comments) Value History Slightly Suspicious 0 EKG Normal 0 Age >65 2 Risk Factors >3 or Hx ASHD 2 Troponin 1-2 x's Normal limit 1 Total 5 I personally scribed for KEVEN RONDON MD ([email or web address]) on 11/04/24 at 21:09. Electronically submitted by Rupert Gunn ([email or web address]). I personally scribed for KEVEN RONDON MD ([email or web address]) on 11/04/24 at 21:12. Electronically submitted by Rupert Gunn ([email or web address]). KEVEN RONDON MD Nov 04, 2024:09
[2024-11-04] MEDS: ACETYLCYSTEINE 20%(200MG/ML) SOL 4ML NEB ONE (21:30)
[2024-11-04] MEDS: DOPamine 1600MCG/ML D5W 250 ML IV SCH (21:52)
[2024-11-04 21:54] LABS: Hematocrit 40.6 % (36.0-46.0); Hemoglobin 12.9 g/dL (12.2-16.2); Mean Corpuscular Hemoglobin 28.9 pg (28.0-32.0); Mean Corpuscular Hgb Conc. 31.9 g/dL (32.0-36.0); Mean Corpuscular Volume 90.7 fL (80.0-100.0); Platelet Count (auto) 107 10^3/uL (140-450); Red Blood Cells 4.48 10^6/uL (4.0-5.20); Red Cell Distribution Width 17.6 % (11.8-14.3); White Blood Cell 12.5 10^3/uL (4.4-10.8)
[2024-11-04] MEDS: ETOMIDATE (2MG/ML) 20ML VIAL IV ONE ×2 (22:01)
[2024-11-04] MEDS: ROCURONIUM 10MG/ML 10ML VIAL IV ONE ×2 (22:01→22:02)
[2024-11-04] MEDS: PROPOFOL 100 ML IV ONE (22:01)
[2024-11-04 22:05] VITALS: PULSE 50; O2SAT 100
[2024-11-04 22:08] VITALS: TEMP 97.5
[2024-11-04 22:23] LABS: Band Neutrophils % (manual) 0; Basophils % (manual) 0 (0.0-2.0); Blast Cells 0; Metamyelocytes % 0; Myelocytes % 0; Promyelocytes % 0; Reactive Lymphocytes 0
[2024-11-04] MEDS: ALBUTEROL SULF 2.5 MG/0.5ML(0.5%) NEB SOLN NEB ONE (22:29)
[2024-11-04 22:37] LABS: Lymphocytes % (manual) 13 (10.0-50.0)
[2024-11-04 22:38] LABS: Eosinophils % (manual) 1 (0-7); Monocytes % (manual) 6 (0-12); Platelet Estimate Decreased
[2024-11-04 22:45] LABS: Chloride 101 mmol/L (98-107)
[2024-11-04 22:46] LABS: Anion Gap 10 (5-15); Calcium 9.4 mg/dL (8.7-10.4); Carbon Dioxide 24 mmol/L (20-31)
[2024-11-04 22:47] LABS: Albumin 4.2 g/dL (3.2-4.8); Anion Gap 12 (5-15); BUN/Creatinine Ratio 30.3 (10.0-20.0); Bilirubin, Total 0.4 mg/dL (0.2-1.0); Calcium 10.2 mg/dL (8.7-10.4); Carbon Dioxide 22 mmol/L (20-31); Chloride 101 mmol/L (98-107); Potassium 4.8 mmol/L (3.5-5.1); Total Protein 6.6 g/dL (5.7-8.2)
[2024-11-04 22:48] LABS: Alanine Aminotransferase 42 U/L (7-40); Alkaline Phosphatase 209 U/L (46-116); Aspartate Aminotransferase 53 U/L (13-40); Blood Urea Nitrogen 27 mg/dL (9-23); Glucose 162 mg/dL (74-106); Sodium 135 mmol/L (136-145)
[2024-11-04 22:49] VITALS: RESP 17; O2SAT 90
[2024-11-04] MEDS: PROPOFOL 100 ML IV SCH (22:49)
[2024-11-04 22:51] LABS: Glucose 95 mg/dL (74-106)
[2024-11-04 22:54] LABS: BUN/Creatinine Ratio 32.5 (10.0-20.0); Blood Urea Nitrogen 27 mg/dL (9-23); Potassium 5.3 mmol/L (3.5-5.1); Sodium 135 mmol/L (136-145)
[2024-11-04 22:58] LABS: Lactic Acid w/Reflex 4.7 mmol/L (0.4-2.0)
--- NOTE | 2024-11-04 23:01 | DVH ---
XY CHEST PORTABLE, HISTORY: sob COMPARISON: XY CHEST PORTABLE on DOS: 11/01/24, XY CHEST PORTABLE on DOS: 10/28/24, XY CHEST PORTABLE on DOS: 10/26/24 XY CHEST PORTABLE on DOS: 11/01/24, XY CHEST PORTABLE on DOS: 10/28/24, XY CHEST PORTABLE on DOS: 09/30 07/22 TECHNICAL DATA: 1 view of the chest was obtained. FINDINGS: Lines and tubes: ET in the mid thoracic trachea. Cardiomediastinal silhouette: Enlarged Pulmonary vasculature: Prominent Lung expansion: Low Lung airspace: Pathcy perihilar opacities Lung interstitium: Increased Pleura: Trace bilateral effusion. Pneumothorax: no Bones: Unremarkable Other: Sternotomy wires. IMPRESSION: Cardiomegaly with pulmonary vascular congestion and pulmonary edema.
[2024-11-04] MEDS: EPINEPHrine HCL 250 ML IV ONE (23:05)
[2024-11-04] MEDS: SODIUM BICARB 8.4% 50Meq/50ml SYR Vial IV ONE (23:45)
[2024-11-04 23:52] LABS: Base Excess -12.5 mmol/L (-2.0-3.0)
[2024-11-05 00:11] VITALS: BP 43/28; PULSE 70
[2024-11-05] MEDS ORDERED: EPINEPHrine HCL 250 ML IV SCH (01:45)
--- NOTE | 2024-11-05 02:55 | RESUS ---
CODE BLUE ASSESSSMENT History of Events History of Events: PATIENT ARRIVED VIA EMS. WHILE ON EMS GURNEY, PT BEGAN HAVING AGONAL RESPIRATIONS AND BECAME BRADYCARDIC. VENTILLATION STARTED VIA BVM BY RT. PT PROMPTLY MOVED TO ED BED 10. CRASH CART WAS BROUGHT TO BEDSIDE; PADS APPLIED, BEDSIDE MONITORING APPLIED. Airway Ventilation Breathing at Onset: Agonal O2 Sat by Pulse Oximetry: 50 Oxygen Delivery Method: Ambu-Bag Artificial Ventilation: Bag/Mask Intubation Size: Other Intubated orally: No Intubated Nasaly: No Cricoid pressure done: No CO2 indicator used: No Confirmation: Chest X-ray Suctioning (Oral/Tracheal): Yes Circulation Circulation : Time: 21:40 Pulse Rate (adult): 45 Blood Pressure Systolic: 119 Blood Pressure Diastolic: 81 Medications & Response Medications and Responses #1: Medication Time: 21:41 ADULT Medications Given ADULT: Atropine 1 mg, Calcium Chloride 10 mL Route of Administration: IV EKG Rhythm: Sinus Bradycardia Medications and Responses #2: Medication Time: 21:55 ADULT Medications Given ADULT: Sodium Bacarbinate 50 meq Route of Administration: IV Heart Rate: 22 EKG Rhythm: Sinus Bradycardia EKG Rhythm: Sinus Bradycardia Medications and Responses #3: Medication Time: 22:16 ADULT Medications Given ADULT: Epinephrine 1 mg, Atropine 1 mg, Magnesium Sulfate 2 gm, Calcium Chloride 10 mL Route of Administration: IV Heart Rate: 44 EKG Rhythm: Sinus Bradycardia Blood Pressure Systolic: 187 Blood Pressure Diastolic: 57 Pacing Pacer Pads Applied and Pacing: Yes Reason for Pacing: BRADYCARDIA Pacer mA Voltage: 40 Pulse Present with Pacing: Yes Nurses Notes Ju Coma Scale Eye Opening: To Pain (2) Ju Coma Scale Verbal: None (1) Ju Coma Scale Motor: None (1) Glascow Total: 4 Pupil Reaction: Non Reactive Bedside Blood Glucose: 176 Time Code Ended Post Arrest Status: Ventilated Outcome of code: Successful Code Team Present: MATEO KIRKLAND, ORTHOPEDIC RADIOLOGIC TECHNOLOGIST, IRLANDA RN Post Resuscitation Neurologica Pupil Size: 6 IRLANDA WATKINS Nov 05, 2024 02:55
--- NOTE | 2024-11-06 14:47 | ECG ---
[facility] Test Date: 2024-11-04 Test Time: 22:04:59 Pat Name: PALMA MCGREGOR Department: ED Room: Gender: F Degreaser: GOOD : 1950 Requested By: KEVEN RONDON Order Number: [id number] Reading MD: Measurements Intervals [place] Rate: 74 P: 240 ND: 108 QRS: -74 QRSD: 167 T: 80 QT: 514 QTc: 571 Interpretive Statements Second degree AV block, Mobitz II Atrial premature complexes RBBB and LAFB Left ventricular hypertrophy Inferior infarct, acute (RCA) Lateral leads are also involved Probable RV involvement, suggest recording right precordial leads Please click the below link to view image of tracing.
--- NOTE | 2024-11-07 13:02 | ECG ---
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
== END 2024-11-05 01:06 ==
LOC: EDBD 20:40 → ER 20:40
DX: J96.90 Respiratory failure, unspecified, unspecified whether with hypoxia or hypercapnia (principal); R00.1 Bradycardia, unspecified; J81.1 Chronic pulmonary edema; Z85.850 Personal history of malignant neoplasm of thyroid; Z98.890 Other specified postprocedural states
CPT/HCPCS: 36415; 36556; 36600; 71045; 80048; 80053; 82805; 83605; 83880; 84484; 85007; 85027; 87040; 92950; 93005; 94644; 96365; 96375; 99291; J0171; J2704